=== PATIENT | male | born 1945 | race Caucasian/White ===

== ENCOUNTER 2019-06-28 11:05 | Outpatient (CLI) | payer OTHER, SELFPAY ==
--- NOTE | ~2019-06-28 | XR_ITS ---
XR chest 2V 06/28/2019 11:19 Indication: Cough, fever and leukocytosis. Procedure: 2 view chest Comparison: Comparison to multiple prior studies sequentially, with oldest reviewed study dated 09/13. Findings: Heart size normal. Left basilar airspace disease. No pleural effusion. Right lung no edema or pneumothorax. Impression: 1: Left basilar airspace disease, atelectasis versus developing pneumonia. Reviewed, dictated and finalized at location A. ACE PLATE INSPECTOR Impression: 1: Left basilar airspace disease, atelectasis versus developing pneumonia.
== END 2019-06-28 11:06 | disposition home or self-care (01) ==
LOC: CHSIMG 11:07
PROVIDERS: PCP Internal Medicine; Visit Provider Internal Medicine
DX: R05 Cough (principal); R50.9 Fever, unspecified; D72.829 Elevated white blood cell count, unspecified
CPT/HCPCS: 71046

== ENCOUNTER → 2019-07-04 14:35 | Outpatient (CLI) | payer OTHER, SELFPAY ==
--- NOTE | ~2019-07-04 | CT_ITS ---
EXAMINATION:CT chest w con DATE: 07/04/2019 15:08 INDICATION: Atypical pneumonia. Shortness of breath. TECHNIQUE: Computed tomography (CT) of the chest was performed without intravenous contrast. Automate d exposure control and iterative reconstruction technique were employed. The dose-length product (DLP ) was 322.09 mGy-cm. COMPARISON: Chest 2 views 06/28/2019, CT abdomen and pelvis 07/11/2017 FINDINGS: There is mild emphysema. There are mild patchy groundglass opacities in the upper lobes and superior segment right lower lobe. There is mild dependent atelectasis bilaterally. A calcified left lung nodule is consistent with old granulomatous disease. There are small pleural effusions. The hea rt size is normal. There are coronary artery calcifications. No pericardial effusion. The central pul monary arteries are enlarged, consistent with pulmonary arterial hypertension. There is a 1.4 cm cyst in the liver. There is mild thoracic spondylosis. IMPRESSION: 1. Mild patchy groundglass opacities in the upper lobes and superior segment right lower lobe, consis tent with pneumonia versus mild pulmonary edema. 2. Small pleural effusions. 3. Mild emphysema. Reviewed, dictated and finalized at location A. IMPRESSION: 1. Mild patchy groundglass opacities in the upper lobes and superior segment ri ght lower lobe, consistent with pneumonia versus mild pulmonary edema. 2. Small pleural effusions. 3. Mild emphysema.
[2019-07-04 14:56] LABS: Estimated Glomerular Filt Rate > 60
== END ==
PROVIDERS: PCP Internal Medicine; Visit Provider Internal Medicine
DX: J18.9 Pneumonia, unspecified organism (principal); J90 Pleural effusion, not elsewhere classified; J43.9 Emphysema, unspecified
CPT/HCPCS: 36415; 71260; Q9967

== ENCOUNTER 2019-07-05 09:06 | Outpatient (CLI) | payer OTHER, SELFPAY ==
[2019-07-05 09:29] LABS: Hematocrit 38.2 % (37.0-46.0); Hemoglobin 12.7 g/dL (12.4-15.3); Mean Corpuscular HGB Conc 33.2 g/dL (32.0-36.0); Mean Corpuscular Hemoglobin 29.1 pg (27.0-31.0); Mean Corpuscular Volume 87.6 fL (78.0-102.0); Mean Platelet Volume 8.7 fl (8.7-11.0); Platelet Count Result 387 K/mm3 (150-420); Red Blood Count 4.36 M/mm3 (4.70-6.10); Red Cell Distribution Width 13.1 % (11.6-14.4)
[2019-07-05 10:16] LABS: White Blood Count 25.2 K/mm3 (4.8-10.8)
[2019-07-05 10:17] LABS: Band Neutrophils Percent 0 % (0-6); Basophils Percent Manual 2 % (0-1); Eosinophils Absolute Manual 0.75 K/mm3 (0.02-0.5); Eosinophils Percent Manual 3 % (1-6); Lymphocytes Absolute Manual 3.02 K/mm3 (1.1-4.5); Lymphocytes Percent Manual 12 % (18-44); Metamyelocytes Percent 1 %; Monocytes Absolute Manual 1.26 K/mm3 (0.1-0.90); Monocytes Percent Manual 5 % (3-9); Neutrophils Percent Manual 77 % (46-73); Total Cells Counted 100
[2019-07-05 10:18] LABS: Platelet Estimate Adequate (Adequate)
[2019-07-05 11:00] LABS: CRP 10.9 mg/dL (0.0-0.9)
[2019-07-08 09:10] LABS: Legionella pneumophila Ag Ur Not Detected (Not Detected)
== END 2019-07-05 09:07 | disposition home or self-care (01) ==
LOC: CHSLAB 09:09
PROVIDERS: PCP Internal Medicine; Visit Provider Internal Medicine
DX: J18.9 Pneumonia, unspecified organism (principal)
CPT/HCPCS: 36415; 85025; 86140; 86606; 86612; 86628; 86635; 86698; 87449; 87486; 87581

== ENCOUNTER 2019-07-05 10:20 | Inpatient (IN) | payer MEDICARE, OTHER, SELFPAY ==
[2019-07-05] VITALS (8 sets, daily range): BP systolic 145–152; BP diastolic 79–90; PULSE 92–104; RESP 16–20; TEMP 36.2–36.8; O2SAT 91–95; BMI 25.0
--- NOTE | ~2019-07-05 | CT_ITS ---
EXAMINATION: CT chest w con DATE: 07/08/2019 14:42 INDICATION: Shortness of breath, congestion, cough TECHNIQUE: Computed tomography (CT) of the chest was performed with 100 cc Omnipaque 350 intravenous contrast. Automated exposure control and iterative reconstruction technique were employed. Exam dose: 223.12 mGy-cm total exam DLP. COMPARISON: 07/04/2019 CT chest FINDINGS: Scattered shotty mesenteric lymph nodes. No hilar or mediastinal mass lesion or lymphadenop athy. No thoracic aortic aneurysm or dissection. Normal heart size. Coronary artery calcification. No peric ardial or pleural effusion. There are scattered patchy groundglass infiltrates with overall moderate improvement since 07/04/2019, particularly in the lower lobes. Mild emphysematous changes. Approximately 1.4 x 2 cm septated right hepatic cyst. Normal morphology of the adrenal glands. Included upper abdominal structures are otherwise unremarkable. Degenerative spurring of the lower th oracic spine. No suspicious osteolytic or osteoblastic lesions. IMPRESSION: Interval improvement of patchy bilateral groundglass infiltrates and resolution of bilat eral small pleural effusions since 07/04/2019 Reviewed, dictated and finalized at Location [facility]. Reviewed, dictated and finalized at location B. IMPRESSION: Interval improvement of patchy bilateral groundglass infiltrates a nd resolution of bilateral small pleural effusions since 07/04/2019
--- NOTE | 2019-07-05 10:54 | PC.NURSE ---
Dr Farfan called insisting patient has coronavirus, per ER MD placed in negative pressure room. Patient had been sick over 2weeks
--- NOTE | 2019-07-05 11:11 | PC.NURSE ---
1035am Dr Farfan called spoke about patient to dr simental, dr simental requested meds, test & clinicals. Service Cashier called again at 1048am to dr nina office for med list, test & clinical notes, still none received
[2019-07-05] MEDS: IPRATROPIUM 0.5 MG/ALBUTEROL SULFATE 2.5 MG AMPUL.NEB 3 ML INHALATION ×2 (11:25→18:10)
--- NOTE | 2019-07-05 11:29 | ED.SOB ---
HPI - SOB/Dyspnea General Chief Complaint: Shortness of Breath/Dyspnea Stated Complaint: flu symptoms Time Seen by Provider: 07/05/19 11:00 Source: patient and family Mode of arrival: ambulatory Limitations: no limitations History of Present Illness HPI Narrative: 74-year-old man with a history of asthma comes to the ED today from a primary care doctor's clinic for increasing shortness of breath, sats of 91%, and bilateral pneumonia. He is not responding to antibiotics ( Ceftin and azithromycin) he has had the cough over week and his fever started about 1 week ago. He has had no fever for the last [address] scan yesterday showed of bilateral upper ground-glass opacities and [place] [address]. He tested negative for influenza at his doctor's office. He has had no steroids. Patient denies sick contacts and recent travel except to see a play last week in [place], [place]. MD elicited complaint: shortness of breath Pertinent past history: asthma Timing: constant and progressively worsening Severity: moderate Exacerbating factors: exertion Relieving factors: nothing Known history of: asthma Associated symptoms: fever, cough, wheezing and chest congestion Treatment prior to arrival: none Related Data Home oxygen amount: none Home Medications Medication Instructions Recorded Confirmed albuterol sulfate 2.5 mg INHALATION Q4H PRN 07/05/19 07/05/19 albuterol sulfate [ProAir HFA] 2 puff INHALATION QID PRN 07/05/19 07/05/19 aspirin 81 mg PO DAILY 07/05/19 07/05/19 azelastine 2 spray INTRANASAL BID 07/05/19 07/05/19 beclomethasone dipropionate [Qvar 2 inh INHALATION Q12H 07/05/19 07/05/19 RediHaler] celecoxib 200 mg PO DAILY 07/05/19 07/05/19 dapagliflozin [Farxiga] 5 mg PO DAILY 07/05/19 07/05/19 fluticasone furoate-vilanterol 1 inh INHALATION DAILY 07/05/19 07/05/19 [Breo Ellipta] glimepiride 2 mg PO BID 07/05/19 07/05/19 magnesium 400 mg PO DAILY 07/05/19 07/05/19 pmcybgws-sud-NO-lycopen-lutein 1 tablet PO DAILY 07/05/19 07/05/19 [Centrum Silver Men] cqvwh-7-vgp-qpj-rkg-abxx oil 1 cap PO DAILY 07/05/19 07/05/19 [[place]-3 (with dpa)] simvastatin 10 mg PO HS 07/05/19 07/05/19 terazosin 10 mg PO HS 07/05/19 07/05/19 verapamil 180 mg PO HS 07/05/19 07/05/19 zafirlukast 20 mg PO Q12H 07/05/19 07/05/19 Allergies Allergy/AdvReac Type Severity Reaction Status Date / Time losartan AdvReac Dizziness Verified 07/05/19 12:57 metformin [From ] AdvReac Abdominal Verified 07/05/19 12:57 Pain sitagliptin [From ] AdvReac Abdominal Verified 07/05/19 12:57 Pain theophylline AdvReac Abdominal Verified 07/05/19 12:57 Pain Review of Systems Constitutional: Constitutional: Reports as per HPI, Denies chills, Reports fatigue, Reports fever(s) and Denies weakness Eyes: Eyes: Denies change in vision and Denies photophobia ENT: Denies dysphagia, Reports nasal congestion and Denies sore throat Cardiovascular: Cardiovascular: Reports chest pain and Reports radiating jaw, neck or arm pain Respiratory: Respiratory: Reports as per HPI, Reports chest congestion, Reports cough, Reports dyspnea and Reports wheezing Gastrointestinal: Gastrointestinal: Denies abdominal pain, Denies diarrhea, Denies nausea and Denies vomiting Genitourinary: Genitourinary: Denies hematuria, Denies dysuria and Denies urinary frequency Musculoskeletal: Musculoskeletal: Denies arthralgias, Denies joint swelling and Denies muscle cramps Integumentary/Breasts: Skin/Breast: Denies pruritus, Denies erythema and Denies rash Neurologic: Denies vertigo, Denies dizziness, Denies syncope, Denies headache(s) and Denies focal weakness Psychiatric: Psychiatric: Denies anxiety and Denies depression Endocrine: Endocrine: Denies polydipsia and Denies polyuria Hematologic/Lymphatic: Hematologic/Lymphatic: Denies easy bleeding and Denies easy bruising Allergic/Immunologic: Allergic/Immunologic: Denies
--- NOTE | 2019-07-05 11:38 | ECG_ITS ---
Measurements Intervals [place] Rate: 100 P: 64 AK: 122 QRS: 97 QRSD: 101 T: 5 QT: 370 QTc: 477 Interpretive Statements SINUS TACHYCARDIA RIGHT AXIS DEVIATION DELAYED PRECORDIAL R/S TRANSITION BORDERLINE ST-T WAVE ABNORMALITY- INFERIOR LEADS BORDERLINE ECG Electronically Signed On 07-05-2019 13:30:30 CDT by Benji Leal D.O.
--- NOTE | 2019-07-05 12:00 | PC.NURSE ---
Pt spo2 88% on room air. edp aware, spoke with pt. pt spo2 back up to 92%.
[2019-07-05 12:07] LABS: Anion Gap 18.8 mmol/L (7-16); Blood Urea Nitrogen 23 mg/dL (7-18); Calcium 8.4 mg/dL (8.5-10.1); Carbon Dioxide 22 mmol/L (21-32); Chloride 103 mmol/L (98-108); Estimated CRCL calculation 50 ml/min; Estimated Glomerular Filt Rate > 60; Glucose 297 mg/dL (70-99); Osmolality Calculated 304 mOsm/kg (285-295); Potassium 3.8 mmol/L (3.5-5.1); Sodium 140 mmol/L (136-145)
[2019-07-05 12:18] LABS: Troponin I < 0.02 ng/mL (0.00-0.056)
[2019-07-05 12:50] LABS: Lactic Acid 1.1 mmol/L (0.4-2.0)
[2019-07-05 12:51] LABS: Influenza Control Valid (Valid)
--- NOTE | 2019-07-05 14:43 | PC.NURSE ---
Dr. Perkins [facility].
--- NOTE | 2019-07-05 15:01 | PM.IMHP ---
H&P: HPI History of Present Illness Chief complaint: flu symptoms Narrative: Binh Herrera is a 74 year old male that presented to the ED today with complaints of shortness of breath dyspnea and elevated wbc's. Patient has a past medical history of asthma, rheumatoid arthritis, type 2 diabetes, hypertension and HLD . According to patient weeks ago he was with fever 101-102, a nonproductive cough, shortness of breath, occasional lightheadedness and diaphoretic. He does have a history of asthma, according to patient he usually uses his nebulizer once a week. For the past weeks he has had to uses nebulizer twice a day. he has not had any recent fevers He did have an appointment with his primary care physician today who referred him to the ED. his PCP referred him to the ED because his white count has increased with antibiotic treatment. He did test negative for influenza and has not had any steroids to justify the elevated white blood cell count. his doctor was concerned with the COVID-19 virus and he was tested for it in the ED. While in the ED patient did have a CT of the chest completed which indicated Mild patchy groundglass opacities in the upper lobes and superior segment right lower lobe, consistent with pneumonia versus mild pulmonary edema. he also completed chest x-ray on 06/28/2019 which indicated Left basilar airspace disease, atelectasis versus developing pneumonia. at that time he was treated with antibiotics. while in the ER a blood culture was collected EKG indicated sinus tach with a heart rate of 100 lactic acid was within normal limits antibiotics given azithromycin vancomycin and ceftarolin, breathing treatments was also ordered for patient. vitals were 152/90, 20, 91, 91% on room air. Patient will be admitted to this unit and placed on droplet isolation until COVID-19 virus results are returned patient's is in the room with him and educated on the spread of the virus. patient does continue to have shortness of breath. Patient denies CP, palpitation, extremity numbness, lightheadness, dizziness, constipation, diarrhea, or chills or fever. patient did complain of dysuria that started 1 week ago will collect a UA to rule out UTI Review of Systems Constitutional: Constitutional: Reports no additional constitutional complaints, Denies chills, Denies fatigue and Denies fever(s) Cardiovascular: Cardiovascular: Denies chest pain at rest, Denies chest pain with activity, Denies diaphoresis, Denies syncope, Denies leg edema, Reports dyspnea, Reports dyspnea on exertion and Reports orthopnea Respiratory: Respiratory: Reports cough ( nonproductive), Denies excessive phlegm production, Denies pain with cough and Reports dyspnea on exertion Gastrointestinal: Gastrointestinal: Denies constipation, Denies dyspepsia, Denies heartburn, Denies diarrhea and Denies nausea Genitourinary: Genitourinary: Denies hematuria, Reports dysuria and Denies flank pain Musculoskeletal: Musculoskeletal: Reports no additional musculoskeletal complaints Integumentary/Breasts: Skin/Breast: Reports system reviewed and no additional complaints, except as docu Neurologic: Reports system reviewed and no additional complaints, except as documented, Denies vertigo, Denies dizziness, Denies focal weakness, Denies loss of vision and Denies tingling PMFSH Past Medical History Medical History (Updated 07/05/19 @ 15:34 by KIKI Caceres-C) Asthma HLD (hyperlipidemia) HTN (hypertension) Rheumatoid arthritis Type 2 diabetes mellitus Social History Social History (Updated 07/05/19 @ 11:37 by Francois Perkins MD) Smoking status: Never smoker Alcohol intake: unknown Substance use: never Living arrangements: with family Gender identity (if verbalized by the patient): Male Meds Home Medications and Allergies Home Medications Medication Instructions Recorded Confirmed Type albuterol sulfate 2.5 mg INHALATION Q4H PRN 07/05/19 0
[2019-07-05] MEDS: BENZONATATE 100 MG CAPSULE 200 MG PO (16:32)
[2019-07-05] MEDS: GLIMEPIRIDE 2 MG TABLET PO (16:32)
--- NOTE | 2019-07-05 16:43 | PC.NURSE ---
[facility] called to approve idph testing for [place] virus. pui completed and faxed.
[2019-07-05 16:47] LABS: Glucose Point of Care 190 (65-105)
--- NOTE | 2019-07-05 17:08 | ADMGEN ---
This patient, Binh Herrera, was admitted to 2nd Floor Room 212-1. Patient/family oriented to hospital policies and general routines including ID bracelet, bed and alarms, visiting hours, pain management, procedures, bathroom and other care routines, personal items, smoking policy, room service/diet, and visiting hours. Valuables list has been completed. Information on how to activate the Rapid Response Team has been discussed. Patient/Family are encouraged to report perceived risks to care and to ask questions if they do not understand what they are told or what they should do.
[2019-07-05] MEDS: TERAZOSIN HCL 5 MG CAPSULE 10 MG PO (20:13)
[2019-07-05] MEDS: VERAPAMIL HCL 180 MG TABLET ER PO (20:13)
[2019-07-05] MEDS: SIMVASTATIN 10 MG TABLET PO (20:13)
[2019-07-05 20:39] LABS: Glucose Point of Care 113 (65-105)
--- NOTE | 2019-07-05 20:45 | PC.NURSE ---
pt sitting up in chair talking to , no evidence of respiratory distress noted, denies any complaints
[2019-07-05 20:50] LABS: Appearance Urine Clear (Clear); Bilirubin Urine Negative (Negative); Color Urine Yellow (Yellow); Glucose Urine UA 3+ (Negative); Ketones Urine Negative (Negative); Leukocyte Esterase Ur Negative LEU/UL (Negative); Nitrate Urine Negative (Negative); Protein Urine Negative (Negative); Specific Grav Ur <= 1.005 (1.010-1.020); Urobilinogen Urine 0.2 mg/dL (0.2-1.0); pH Urine 5.5 (5.0-8.0)
[2019-07-05 20:55] LABS: Add Urine Microscopic? YES; Bacteria Urine None seen /hpf; Blood Urine Trace-Lysed (Negative); RBC Urine None seen /hpf (0-2); Squamous Epithelial Cell Urine Rare /hpf (Few); WBC Urine None seen /hpf (0-3)
--- NOTE | 2019-07-05 22:00 | PC.NURSE ---
Pt sleeping, no evidence of distress noted, respirations even and regular, call light and belongings within reach
--- NOTE | 2019-07-05 23:15 | PC.NURSE ---
pt sleeping, respirations even and regular, no evidence of respiratory distress noted at this time
[2019-07-06] VITALS (11 sets, daily range): BP systolic 146–152; BP diastolic 76–80; PULSE 88–104; RESP 16–20; TEMP 36.2; O2SAT 93–96
--- NOTE | 2019-07-06 00:10 | PC.NURSE ---
pt easily aroused for breathing tx, denies any sob or pain at this time
[2019-07-06] MEDS: IPRATROPIUM 0.5 MG/ALBUTEROL SULFATE 2.5 MG AMPUL.NEB 3 ML INHALATION ×4 (00:12→18:30)
[2019-07-06] MEDS: ZAFIRLUKAST 20 MG TABLET PO ×2 (00:12→13:30)
--- NOTE | 2019-07-06 02:45 | PC.NURSE ---
pt sleeping, respirations even and regular, no evidence of respiratory distress noted at this time
--- NOTE | 2019-07-06 04:02 | PC.NURSE ---
pt sleeping, respirations even and regular, no evidence of respiratory distress
--- NOTE | 2019-07-06 05:40 | PC.NURSE ---
respiratory in room, pt denies any sob, reports feels better today
[2019-07-06 06:15] LABS: Hematocrit 37.2 % (37.0-46.0); Hemoglobin 12.5 g/dL (12.4-15.3); Mean Corpuscular HGB Conc 33.6 g/dL (32.0-36.0); Mean Corpuscular Hemoglobin 29.6 pg (27.0-31.0); Mean Corpuscular Volume 88.2 fL (78.0-102.0); Mean Platelet Volume 8.9 fl (8.7-11.0); Platelet Count Result 389 K/mm3 (150-420); Red Blood Count 4.22 M/mm3 (4.70-6.10); Red Cell Distribution Width 12.9 % (11.6-14.4); White Blood Count 16.7 K/mm3 (4.8-10.8)
[2019-07-06 06:33] LABS: Band Neutrophils Percent 1 % (0-6); Basophils Absolute Manual 0.33 K/mm3 (0-0.1); Basophils Percent Manual 2 % (0-1); Eosinophils Absolute Manual 0.33 K/mm3 (0.02-0.5); Eosinophils Percent Manual 2 % (1-6); Lymphocytes Absolute Manual 1.67 K/mm3 (1.1-4.5); Lymphocytes Percent Manual 10 % (18-44); Metamyelocytes Percent 2 %; Monocytes Absolute Manual 0.33 K/mm3 (0.1-0.90); Monocytes Percent Manual 2 % (3-9); Neutrophils Absolute Manual 13.69 K/mm3 (1.3-6.7); Neutrophils Percent Manual 81 % (46-73); Platelet Estimate Adequate (Adequate); Total Cells Counted 100
[2019-07-06 06:45] LABS: Alanine Aminotransferase 52 U/L (16-63); Albumin Level 2.6 g/dL (3.4-5.0); Alkaline Phosphatase 67 U/L (46-116); Anion Gap 15.4 mmol/L (7-16); Aspartate Amino Transferase 22 U/L (15-37); Bilirubin,Total 0.4 mg/dL (0.00-1.00); Blood Urea Nitrogen 16 mg/dL (7-18); Calcium 8.1 mg/dL (8.5-10.1); Carbon Dioxide 25 mmol/L (21-32); Chloride 105 mmol/L (98-108); Estimated CRCL calculation 57 ml/min; Estimated Glomerular Filt Rate > 60; Glucose 110 mg/dL (70-99); Osmolality Calculated 296 mOsm/kg (285-295); Potassium 3.4 mmol/L (3.5-5.1); Sodium 142 mmol/L (136-145); Total Protein 6.4 g/dL (6.4-8.2)
[2019-07-06] MEDS: BENZONATATE 100 MG CAPSULE 200 MG PO ×3 (09:47→16:28)
[2019-07-06] MEDS: OPTI-GEN TAB 1 TABLET PO (09:48)
[2019-07-06] MEDS: GLIMEPIRIDE 2 MG TABLET PO ×2 (09:48→16:28)
[2019-07-06] MEDS: MAGNESIUM OXIDE 400 MG TABLET PO (09:48)
[2019-07-06] MEDS: OMEGA 3 POLYUNSAT FATTY ACIDS 1 GM CAP PO (09:48)
[2019-07-06] MEDS: CELECOXIB 100 MG CAPSULE 200 MG PO (09:48)
[2019-07-06] MEDS: ASPIRIN 81 MG CHEWABLE TABLET PO (09:48)
[2019-07-06] MEDS: AZELASTINE HCL NASAL 0.1% 137 MCG/SPR 30 ML BTL 2 SPRAY NASAL ×2 (10:00→16:44)
[2019-07-06] MEDS: ACETAMINOPHEN 500 MG TABLET 1000 MG PO (10:03)
--- NOTE | 2019-07-06 11:06 | P.PNIM_ITS ---
Progress Note: A&P Assessment and Plan (1) Pneumonia: Qualifiers: Laterality: bilateral Lung location: unspecified part of lung Pneumonia type: due to unspecified organism Qualified Code(s): J18.9 - Pneumonia, unspecified organism <Eloise Quintero KIKI-C - Last Filed: 07/06/19 11:12> Code(s): J18.9 - Pneumonia, unspecified organism <Eloise Quintero KIKI-C - Last Filed: 07/06/19 11:12> Status: Acute <Eloise Quintero SPA THERAPIST-C - Last Filed: 07/06/19 11:12> Assessment and Plan: * chest x-ray on 07/08/2019 indicates Left basilar airspace disease, atelectasis versus developing pneumonia. * CT of the chest indicates Mild patchy groundglass opacities in the upper lobes and superior segment right lower lobe, consistent with pneumonia versus mild pulmonary edema. * continue azithromycin vancomycin and Rocephin * wbc's 25,000 on admission now 16.7 * will repeat CBC in the a.m. * Tylenol added for fever * patient currently afebrile * blood culture pending * continue Tessalon Perles and guaifenesin. <Eloise Quintero SPA THERAPIST-C - Last Filed: 07/06/19 11:12> (2) Hypoxia: Code(s): R09.02 - Hypoxemia <Eloise Quintero KIKI-C - Last Filed: 07/06/19 11:12> Status: Acute <Eloise Quintero KIKI-C - Last Filed: 07/06/19 11:12> Assessment and Plan: * possibly secondary to pneumonia versus viral infection versus worsening asthma * sats 96% on room air, no obvious distress noted * refer to pneumonia and asthma <Eloise Quintero SPA THERAPIST-C - Last Filed: 07/06/19 11:12> (3) Asthma: Code(s): J45.909 - Unspecified asthma, uncomplicated <Eloise Quintero SPA THERAPIST-C - Last Filed: 07/06/19 11:12> Status: Acute <Eloise Quintero SPA THERAPIST-C - Last Filed: 07/06/19 11:12> Assessment and Plan: * worsened due to pneumonia * CT of the chest indicates mild emphysema * continue duo nebulizers * continue to monitor oxygen level * give supplementary oxygen needed * sats 96% on room air * patient did not appear to be in any distress <AYAN CaceresC - Last Filed: 07/06/19 11:12> (4) Type 2 diabetes mellitus: Code(s): E11.9 - Type 2 diabetes mellitus without complications <Eloise Quintero KIKI-C - Last Filed: 07/06/19 11:12> Status: Acute <Eloise Quintero KIKI-C - Last Filed: 07/06/19 11:12> Assessment and Plan: * blood sugar 113 * continue home medication * sliding scale added low-dose * will adjust as needed * Accu-Cheks as ordered * continue diabetic diet <Eloise Quintero KIKI-C - Last Filed: 07/06/19 11:12> (5) Rheumatoid arthritis: Code(s): M06.9 - Rheumatoid arthritis, unspecified <Eloise Quintero KIKI-C - Last Filed: 07/06/19 11:12> Status: Acute <Eloise Quintero KIKI-C - Last Filed: 07/06/19 11:12> Assessment and Plan: * stable <Eloise Quintero KIKI-C - Last Filed: 07/06/19 11:12> (6) HLD (hyperlipidemia): Code(s): E78.5 - Hyperlipidemia, unspecified <Eloise Quintero KIKI-C - Last Filed: 07/06/19 11:12> Status: Acute <Eloise Quintero KIKI-C - Last Filed: 07/06/19 11:12> Assessment and Plan: continue statins <Eloise Quintero KIKI-C - Last Filed: 07/06/19 11:12> (7) HTN (hypertension): Code(s): I10 - Essential (primary) hypertension <Eloise Quintero KIKI-C - Last Filed: 07/06/19 11:12> Status: Acute <Eloise Quintero KIKI-C - Last Filed: 07/06/19 11:12> Assessment and Plan: * blood pres
--- NOTE | 2019-07-06 11:06 | PM.IMPN ---
Progress Note: A&P Assessment and Plan (1) Pneumonia: Qualifiers: Laterality: bilateral Lung location: unspecified part of lung Pneumonia type: due to unspecified organism Qualified Code(s): J18.9 - Pneumonia, unspecified organism <KIKI Caceres-C - Last Filed: 07/06/19 11:12> Code(s): J18.9 - Pneumonia, unspecified organism <Eloise Quintero KIKI-C - Last Filed: 07/06/19 11:12> Status: Acute <KIKI Caceres-C - Last Filed: 07/06/19 11:12> Assessment and Plan: chest x-ray on 07/08/2019 indicates Left basilar airspace disease, atelectasis versus developing pneumonia. CT of the chest indicates Mild patchy groundglass opacities in the upper lobes and superior segment right lower lobe, consistent with pneumonia versus mild pulmonary edema. continue azithromycin vancomycin and Rocephin wbc's 25,000 on admission now 16.7 will repeat CBC in the a.m. Tylenol added for fever patient currently afebrile blood culture pending continue Tessalon Perles and guaifenesin. <Eloise Quintero KIKI-C - Last Filed: 07/06/19 11:12> (2) Hypoxia: Code(s): R09.02 - Hypoxemia <Eloise Quintero KIKI-C - Last Filed: 07/06/19 11:12> Status: Acute <Eloise Quintero KIKI-C - Last Filed: 07/06/19 11:12> Assessment and Plan: possibly secondary to pneumonia versus viral infection versus worsening asthma sats 96% on room air, no obvious distress noted refer to pneumonia and asthma <Eloise Quintero CUSTOMER QUALITY SPECIALIST-C - Last Filed: 07/06/19 11:12> (3) Asthma: Code(s): J45.909 - Unspecified asthma, uncomplicated <Eloise Quintero KIKI-C - Last Filed: 07/06/19 11:12> Status: Acute <Eloise Quintero CUSTOMER QUALITY SPECIALIST-C - Last Filed: 07/06/19 11:12> Assessment and Plan: worsened due to pneumonia CT of the chest indicates mild emphysema continue duo nebulizers continue to monitor oxygen level give supplementary oxygen needed sats 96% on room air patient did not appear to be in any distress <Eloise Quintero CUSTOMER QUALITY SPECIALISTAyushC - Last Filed: 07/06/19 11:12> (4) Type 2 diabetes mellitus: Code(s): E11.9 - Type 2 diabetes mellitus without complications <Eloise Quintero CUSTOMER QUALITY SPECIALISTAyushC - Last Filed: 07/06/19 11:12> Status: Acute <Eloise Quintero AYANC - Last Filed: 07/06/19 11:12> Assessment and Plan: blood sugar 113 continue home medication sliding scale added low-dose will adjust as needed Accu-Cheks as ordered continue diabetic diet <Eloise QuinteroKIKIAyushC - Last Filed: 07/06/19 11:12> (5) Rheumatoid arthritis: Code(s): M06.9 - Rheumatoid arthritis, unspecified <Eloise Quintero CUSTOMER QUALITY SPECIALISTAyushC - Last Filed: 07/06/19 11:12> Status: Acute <Eloise Quintero AYANC - Last Filed: 07/06/19 11:12> Assessment and Plan: stable <Eloise Quintero CUSTOMER QUALITY SPECIALIST-C - Last Filed: 07/06/19 11:12> (6) HLD (hyperlipidemia): Code(s): E78.5 - Hyperlipidemia, unspecified <Eloise Quintero AYANC - Last Filed: 07/06/19 11:12> Status: Acute <Eloise Quintero AYANOnur - Last Filed: 07/06/19 11:12> Assessment and Plan: continue statins <Eloise Quintero CUSTOMER QUALITY SPECIALIST-C - Last Filed: 07/06/19 11:12> (7) HTN (hypertension): Code(s): I10 - Essential (primary) hypertension <Eloise Yanez Leon CUSTOMER QUALITY SPECIALIST-C - Last Filed: 07/06/19 11:12> Status: Acute <Eloise Quintero CUSTOMER QUALITY SPECIALIST-C - Last Filed: 07/06/19 11:12> Assessment and Plan: blood pressure 152/80 continue verapamil and hytrin will adjust medication as needed vital signs is ordered <Eloise LockettKIKI Serna-C - Last Filed: 07/06/19 11:12> (8) Elevated WBCs: Code(s): D72.829 - Elevated white blood cell count, unspecified <KAN Caceres - Last Filed: 07/06/19 11:12> Status: Acute <KAN Caceres - Last Filed: 06/21
[2019-07-06 12:24] LABS: Glucose Point of Care 139 (65-105)
[2019-07-06] MEDS: POTASSIUM CHLORIDE 20 MEQ PACKET (FOR LIQUID) 40 MEQ PO (13:35)
[2019-07-06 16:45] LABS: Glucose Point of Care 217 (65-105)
--- NOTE | 2019-07-06 19:55 | PC.NURSE ---
pt sitting up in bed talking to , no sob noted, pt reports feeling better except for the cough.
[2019-07-06] MEDS: TERAZOSIN HCL 5 MG CAPSULE 10 MG PO (20:00)
[2019-07-06] MEDS: SIMVASTATIN 10 MG TABLET PO (20:00)
[2019-07-06] MEDS: VERAPAMIL HCL 180 MG TABLET ER PO (20:01)
--- NOTE | 2019-07-06 21:20 | PC.NURSE ---
pt sitting up in bed watching tv, denies any complaints, respirations even and regular, no evidence of sob
[2019-07-06 21:32] LABS: Glucose Point of Care 183 (65-105)
--- NOTE | 2019-07-06 23:19 | PC.NURSE ---
pt sleeping, respirations even and regular, no evidence of respiratory distress noted
[2019-07-07] VITALS (11 sets, daily range): BP systolic 136–144; BP diastolic 76–82; PULSE 88–109; RESP 16–22; TEMP 35.9–36.2; O2SAT 94
[2019-07-07] MEDS: ZAFIRLUKAST 20 MG TABLET PO ×2 (00:10→12:47)
[2019-07-07] MEDS: IPRATROPIUM 0.5 MG/ALBUTEROL SULFATE 2.5 MG AMPUL.NEB 3 ML INHALATION ×4 (00:10→17:43)
--- NOTE | 2019-07-07 01:25 | PC.NURSE ---
pt sleeping, respirations even and regular, no evidence of respiratory distress noted
--- NOTE | 2019-07-07 03:20 | PC.NURSE ---
pt sleeping, respirations even and regular, no evidence of respiratory distress noted
--- NOTE | 2019-07-07 05:41 | PCDIET ---
pt resting in bed, denies any sob, RT at bedside
[2019-07-07 05:59] LABS: Hematocrit 38.3 % (37.0-46.0); Hemoglobin 12.5 g/dL (12.4-15.3); Mean Corpuscular HGB Conc 32.6 g/dL (32.0-36.0); Mean Corpuscular Hemoglobin 29.1 pg (27.0-31.0); Mean Corpuscular Volume 89.1 fL (78.0-102.0); Platelet Count Result 408 K/mm3 (150-420); Red Cell Distribution Width 13.1 % (11.6-14.4)
[2019-07-07 06:14] LABS: Alanine Aminotransferase 59 U/L (16-63); Albumin Level 2.7 g/dL (3.4-5.0); Alkaline Phosphatase 71 U/L (46-116); Anion Gap 12.6 mmol/L (7-16); Aspartate Amino Transferase 20 U/L (15-37); Bilirubin,Total 0.3 mg/dL (0.00-1.00); Blood Urea Nitrogen 13 mg/dL (7-18); Calcium 8.3 mg/dL (8.5-10.1); Carbon Dioxide 27 mmol/L (21-32); Chloride 105 mmol/L (98-108); Estimated CRCL calculation 60 ml/min; Estimated Glomerular Filt Rate > 60; Glucose 118 mg/dL (70-99); Osmolality Calculated 293 mOsm/kg (285-295); Potassium 3.6 mmol/L (3.5-5.1); Sodium 141 mmol/L (136-145); Total Protein 6.5 g/dL (6.4-8.2)
--- NOTE | 2019-07-07 07:08 | P.PNCROSS_ITS ---
Event Note Event Note Event Note: Late entry. Pt. seen and evaluated 07/06/19 For this patient encounter, I reviewed the P[employer] BENCH MECHANIC documentation, treatment plan, and medical decision making; and I had [id number] time with this patient. Pt states he's feeling much better since being admitted with less cough and less chest congestion. Decreased breath sounds, scattered wheezes fine rales in bases on PE. Continue 3 antibiotics for today. Await Surs-Covid test result.
[2019-07-07] MEDS: ASPIRIN 81 MG CHEWABLE TABLET PO (09:20)
[2019-07-07] MEDS: OPTI-GEN TAB 1 TABLET PO (09:20)
[2019-07-07] MEDS: BENZONATATE 100 MG CAPSULE 200 MG PO ×3 (09:20→16:59)
[2019-07-07] MEDS: ENOXAPARIN 40 MG/0.4 ML SYRINGE SUB-Q (09:20)
[2019-07-07] MEDS: CELECOXIB 100 MG CAPSULE 200 MG PO (09:21)
[2019-07-07] MEDS: MAGNESIUM OXIDE 400 MG TABLET PO (09:21)
[2019-07-07] MEDS: OMEGA 3 POLYUNSAT FATTY ACIDS 1 GM CAP PO (09:21)
[2019-07-07] MEDS: GLIMEPIRIDE 2 MG TABLET PO ×2 (09:21→16:59)
[2019-07-07] MEDS: AZELASTINE HCL NASAL 0.1% 137 MCG/SPR 30 ML BTL 2 SPRAY NASAL ×2 (09:22→16:59)
[2019-07-07 12:10] LABS: Glucose Point of Care 148 (65-105)
[2019-07-07 14:19] LABS: Vancomycin Trough 2.5 ug/mL (10.0-15.0)
--- NOTE | 2019-07-07 15:01 | P.PNIM_ITS ---
Progress Note: A&P Assessment and Plan (1) Pneumonia: Qualifiers: Laterality: bilateral Lung location: unspecified part of lung Pneumonia type: due to unspecified organism Qualified Code(s): J18.9 - Pneumonia, unspecified organism <Eloise QuinteroKIKI-C - Last Filed: 07/07/19 15:17> Code(s): J18.9 - Pneumonia, unspecified organism <Eloise QuinteroKIKI-C - Last Filed: 07/07/19 15:17> Status: Acute <Eloise QuinteroKIKI-C - Last Filed: 07/07/19 15:17> Assessment and Plan: * chest x-ray on 07/08/2019 indicates Left basilar airspace disease, atelectasis versus developing pneumonia. * CT of the chest indicates Mild patchy groundglass opacities in the upper lobes and superior segment right lower lobe, consistent with pneumonia versus mild pulmonary edema. * continue vancomycin discontinue the azithromycin and Rocephin and started Zosyn instead her roller mechanic recommendations * wbc's 25,000 on admission now 17. did go up 1.6 yesterday * will repeat CBC in the a.m. * Tylenol added for fever * patient currently afebrile * blood culture pending * continue Tessalon Perles and guaifenesin. * CT of the chest pending * * Influenza, RSV PE, pneumococcus and Legionella are a image in UA pending and sputum culture. <Eloise LockettKIKI Serna-C - Last Filed: 07/07/19 15:17> (2) Hypoxia: Code(s): R09.02 - Hypoxemia <Eloise QuinteroKIKI-C - Last Filed: 07/07/19 15:17> Status: Acute <Eloise QuinteroKIKI-C - Last Filed: 07/07/19 15:17> Assessment and Plan: * possibly secondary to pneumonia versus viral infection versus worsening asthma * refer to pneumonia and asthma <Alanyamilet LevyAbran LeonKIKI-C - Last Filed: 07/07/19 15:17> (3) Asthma: Code(s): J45.909 - Unspecified asthma, uncomplicated <Alanyamilet LevyKIKI Serna-C - Last Filed: 07/07/19 15:17> Status: Acute <DOMINIK CaceresP-C - Last Filed: 07/07/19 15:17> Assessment and Plan: * worsened due to pneumonia * CT of the chest indicates mild emphysema * continue duo nebulizers * continue to monitor oxygen level * give supplementary oxygen needed * patient did not appear to be in any distress <KIKI Caceres-C - Last Filed: 07/07/19 15:17> (4) Type 2 diabetes mellitus: Code(s): E11.9 - Type 2 diabetes mellitus without complications <Eloise Quintero GRADE FOREMAN-C - Last Filed: 07/07/19 15:17> Status: Acute <Eloise Quintero KIKI-C - Last Filed: 07/07/19 15:17> Assessment and Plan: * blood sugar 148 * continue home medication * sliding scale added low-dose * will adjust as needed * Accu-Cheks as ordered * continue diabetic diet <Eloise Quintero KIKI-C - Last Filed: 07/07/19 15:17> (5) Rheumatoid arthritis: Code(s): M06.9 - Rheumatoid arthritis, unspecified <Eloise Quintero GRADE FOREMAN-C - Last Filed: 07/07/19 15:17> Status: Acute <Eloise Quintero KIKI-C - Last Filed: 07/07/19 15:17> Assessment and Plan: * stable <Eloise Quintero KIKI-C - Last Filed: 07/07/19 15:17> (6) HLD (hyperlipidemia): Code(s): E78.5 - Hyperlipidemia, unspecified <Eloise Quintero GRADE FOREMAN-C - Last Filed: 07/07/19 15:17> Status: Acute <Eloise Quintero GRADE FOREMAN-C - Last Filed: 07/07/19 15:17> Assessment and Plan: continue statins <Eloise Quintero GRADE FOREMAN-C - Last Filed: 07/07/19 15:17> (7) HTN (hypertension): Code(s): I10 - Essential (primary) hypertension <Eloise Quintero GRADE FOREMAN-C - Last Filed:
--- NOTE | 2019-07-07 15:01 | PM.IMPN ---
Progress Note: A&P Assessment and Plan (1) Pneumonia: Qualifiers: Laterality: bilateral Lung location: unspecified part of lung Pneumonia type: due to unspecified organism Qualified Code(s): J18.9 - Pneumonia, unspecified organism <Eloise QuinteroKIKI-C - Last Filed: 07/07/19 15:17> Code(s): J18.9 - Pneumonia, unspecified organism <Eloise Yanez KIKI Quintero-C - Last Filed: 07/07/19 15:17> Status: Acute <Eloise QuinteroKIKI-C - Last Filed: 07/07/19 15:17> Assessment and Plan: chest x-ray on 07/08/2019 indicates Left basilar airspace disease, atelectasis versus developing pneumonia. CT of the chest indicates Mild patchy groundglass opacities in the upper lobes and superior segment right lower lobe, consistent with pneumonia versus mild pulmonary edema. continue vancomycin discontinue the azithromycin and Rocephin and started Zosyn instead her nuclear technician recommendations wbc's 25,000 on admission now 17. did go up 1.6 yesterday will repeat CBC in the a.m. Tylenol added for fever patient currently afebrile blood culture pending continue Tessalon Perles and guaifenesin. CT of the chest pending Influenza, RSV PE, pneumococcus and Legionella are a image in UA pending and sputum culture. <Alanyamilet LevyKIKI Serna-C - Last Filed: 07/07/19 15:17> (2) Hypoxia: Code(s): R09.02 - Hypoxemia <Eloise LockettKIKI Serna-C - Last Filed: 07/07/19 15:17> Status: Acute <Eloise LockettKIKI Serna-C - Last Filed: 07/07/19 15:17> Assessment and Plan: possibly secondary to pneumonia versus viral infection versus worsening asthma refer to pneumonia and asthma <KIKI Caceres-C - Last Filed: 07/07/19 15:17> (3) Asthma: Code(s): J45.909 - Unspecified asthma, uncomplicated <Eloise LevyKIKI Serna-C - Last Filed: 07/07/19 15:17> Status: Acute <Eloise RKIKI Serna-C - Last Filed: 07/07/19 15:17> Assessment and Plan: worsened due to pneumonia CT of the chest indicates mild emphysema continue duo nebulizers continue to monitor oxygen level give supplementary oxygen needed patient did not appear to be in any distress <Eloise Quintero KIKI-C - Last Filed: 07/07/19 15:17> (4) Type 2 diabetes mellitus: Code(s): E11.9 - Type 2 diabetes mellitus without complications <Eloise Quintero FEEDER ASSOCIATE-C - Last Filed: 07/07/19 15:17> Status: Acute <Eloise Quintero FEEDER ASSOCIATE-C - Last Filed: 07/07/19 15:17> Assessment and Plan: blood sugar 148 continue home medication sliding scale added low-dose will adjust as needed Accu-Cheks as ordered continue diabetic diet <Eloise Quintero FEEDER ASSOCIATE-C - Last Filed: 07/07/19 15:17> (5) Rheumatoid arthritis: Code(s): M06.9 - Rheumatoid arthritis, unspecified <Eloise Quintero FEEDER ASSOCIATE-C - Last Filed: 07/07/19 15:17> Status: Acute <Eloise Quintero FEEDER ASSOCIATE-C - Last Filed: 07/07/19 15:17> Assessment and Plan: stable <Eloise Quintero FEEDER ASSOCIATE-C - Last Filed: 07/07/19 15:17> (6) HLD (hyperlipidemia): Code(s): E78.5 - Hyperlipidemia, unspecified <Eloise Quintero FEEDER ASSOCIATE-C - Last Filed: 07/07/19 15:17> Status: Acute <Eloise Quintero FEEDER ASSOCIATE-C - Last Filed: 07/07/19 15:17> Assessment and Plan: continue statins <Eloise Quintero FEEDER ASSOCIATE-C - Last Filed: 07/07/19 15:17> (7) HTN (hypertension): Code(s): I10 - Essential (primary) hypertension <Eloise Quintero FEEDER ASSOCIATE-C - Last Filed: 07/07/19 15:17> Status: Acute <Eloise LockettAbran Quintero FEEDER ASSOCIATE-C - Last Filed: 07/07/19 15:17> Assessment and Plan: blood pressure 141/76 continue verapamil and hytrin will adjust medication as needed vital signs is ordered <KIKI Caceres-C - Last Filed: 07/07/19 15:17> (8) Elevated WBCs: Code(s): D72.829 - Elevated white blood
[2019-07-07 17:14] LABS: Glucose Point of Care 131 (65-105)
[2019-07-07] MEDS: VERAPAMIL HCL 180 MG TABLET ER PO (21:23)
[2019-07-07] MEDS: SIMVASTATIN 10 MG TABLET PO (21:24)
[2019-07-07] MEDS: TERAZOSIN HCL 5 MG CAPSULE 10 MG PO (21:24)
[2019-07-07 21:52] LABS: Glucose Point of Care 112 (65-105)
[2019-07-08] VITALS (8 sets, daily range): BP systolic 135–148; BP diastolic 77; PULSE 96–106; RESP 16–20; TEMP 35.9–36.6; O2SAT 94–97
[2019-07-08] MEDS: IPRATROPIUM 0.5 MG/ALBUTEROL SULFATE 2.5 MG AMPUL.NEB 3 ML INHALATION ×4 (01:30→18:04)
[2019-07-08] MEDS: ZAFIRLUKAST 20 MG TABLET PO ×2 (01:30→14:02)
[2019-07-08 05:33] LABS: Basophils Absolute Auto 0.09 K/mm3 (0.00-0.10); Basophils Percent Auto 0.5 % (0.0-1.0); Eosinophils Absolute Auto 0.55 K/mm3 (0.02-0.50); Eosinophils Percent Auto 3.3 % (1.0-6.0); Hematocrit 39.3 % (37.0-46.0); Immature Granulocyte Absolute 0.36 K/mm3 (0.00-0.00); Immature Granulocyte Percent A 2.2 % (0.0-0.0); Lymphocytes Absolute Auto 1.66 K/mm3 (1.10-4.50); Lymphocytes Percent Auto 9.9 % (18.0-42.0); Mean Corpuscular HGB Conc 33.1 g/dL (32.0-36.0); Mean Corpuscular Hemoglobin 29.9 pg (27.0-31.0); Mean Corpuscular Volume 90.3 fL (78.0-102.0); Mean Platelet Volume 8.7 fl (8.7-11.0); Monocytes Absolute Auto 1.36 K/mm3 (0.10-0.90); Monocytes Percent Auto 8.1 % (2.0-11.0); Neutrophils Absolute Auto 12.7 K/mm3 (1.7-7.2); Platelet Count Result 389 K/mm3 (150-420); Red Blood Count 4.35 M/mm3 (4.70-6.10); Red Cell Distribution Width 13.4 % (11.6-14.4); White Blood Count 16.7 K/mm3 (4.8-10.8)
[2019-07-08 05:53] LABS: Alanine Aminotransferase 60 U/L (16-63); Alkaline Phosphatase 73 U/L (46-116); Anion Gap 13.9 mmol/L (7-16); Aspartate Amino Transferase 18 U/L (15-37); Bilirubin,Total 0.4 mg/dL (0.00-1.00); Blood Urea Nitrogen 15 mg/dL (7-18); Calcium 8.5 mg/dL (8.5-10.1); Carbon Dioxide 26 mmol/L (21-32); Chloride 102 mmol/L (98-108); Estimated CRCL calculation 49 ml/min; Estimated Glomerular Filt Rate > 60; Glucose 179 mg/dL (70-99); Osmolality Calculated 290 mOsm/kg (285-295); Potassium 3.9 mmol/L (3.5-5.1); Sodium 138 mmol/L (136-145); Total Protein 6.3 g/dL (6.4-8.2)
[2019-07-08 08:05] LABS: Glucose Point of Care 150 (65-105)
[2019-07-08] MEDS: GLIMEPIRIDE 2 MG TABLET PO ×2 (08:12→17:16)
[2019-07-08] MEDS: ACETAMINOPHEN 500 MG TABLET 1000 MG PO (08:18)
[2019-07-08] MEDS: ENOXAPARIN 40 MG/0.4 ML SYRINGE SUB-Q (08:51)
[2019-07-08] MEDS: OPTI-GEN TAB 1 TABLET PO (08:51)
[2019-07-08] MEDS: CELECOXIB 100 MG CAPSULE 200 MG PO (08:51)
[2019-07-08] MEDS: BENZONATATE 100 MG CAPSULE 200 MG PO ×3 (08:52→17:16)
[2019-07-08] MEDS: ASPIRIN 81 MG CHEWABLE TABLET PO (08:52)
[2019-07-08] MEDS: MAGNESIUM OXIDE 400 MG TABLET PO (08:52)
[2019-07-08] MEDS: AZELASTINE HCL NASAL 0.1% 137 MCG/SPR 30 ML BTL 2 SPRAY NASAL ×2 (08:52→17:16)
[2019-07-08] MEDS: OMEGA 3 POLYUNSAT FATTY ACIDS 1 GM CAP PO (08:53)
[2019-07-08 11:34] LABS: Glucose Point of Care 150 (65-105)
--- NOTE | 2019-07-08 13:21 | P.PNIM_ITS ---
Progress Note: A&P Assessment and Plan (1) Pneumonia: Qualifiers: Laterality: bilateral Lung location: unspecified part of lung Pneumonia type: due to unspecified organism Qualified Code(s): J18.9 - Pneumonia, unspecified organism Code(s): J18.9 - Pneumonia, unspecified organism Status: Acute Assessment and Plan: * FAILURE OF OUTPATIENT TREATMENT PATIENT RECEIVED AZITHROMYCIN, CEFDINIR AND VALACYCLOVIR AT THAT TIME * chest x-ray on 07/08/2019 indicates Left basilar airspace disease, atelectasis versus developing pneumonia. * CT of the chest indicates Mild patchy groundglass opacities in the upper lobes and superior segment right lower lobe, consistent with pneumonia versus mild pulmonary edema. REPEAT CT PENDING * continue vancomycin discontinue the azithromycin and Rocephin and started Zosyn instead PER correctional guard recommendations * wbc's 25,000 on admission now 16.7 * INFLUENZA A AND B NEGATIVE X2 * will repeat CBC in the a.m. * Tylenol added for fever * patient currently afebrile * blood culture pending * continue Tessalon Perles and guaifenesin. * LEGIONELLA NON REACTION * PARAInfluenza, RSV PE, pneumococcus and are a image in UA pending and sputum culture. * ANCA WITH REFLUX , VZV SEROLOGY AND ANTI NUCLEAR ANTIBODIES TITER ORDER BY PCP STILL PENDING (2) Hypoxia: Code(s): R09.02 - Hypoxemia Status: Acute Assessment and Plan: * possibly secondary to pneumonia versus viral infection versus worsening asthma * refer to pneumonia and asthma (3) Asthma: Code(s): J45.909 - Unspecified asthma, uncomplicated Status: Acute Assessment and Plan: * worsened due to pneumonia * CT of the chest indicates mild emphysema * continue duo nebulizers * continue to monitor oxygen level * give supplementary oxygen needed * patient did not appear to be in any distress (4) Type 2 diabetes mellitus: Code(s): E11.9 - Type 2 diabetes mellitus without complications Status: Acute Assessment and Plan: * blood sugar 179 * LAST A1C 7.1 * continue home medication * sliding scale added low-dose * will adjust as needed * Accu-Cheks as ordered * continue diabetic diet (5) Rheumatoid arthritis: Code(s): M06.9 - Rheumatoid arthritis, unspecified Status: Acute Assessment and Plan: * PATIENT TAKES TYLENOL AT HOME. * CONTINUE USE OF TYLENOL (6) HLD (hyperlipidemia): Code(s): E78.5 - Hyperlipidemia, unspecified Status: Acute Assessment and Plan: continue statins (7) HTN (hypertension): Code(s): I10 - Essential (primary) hypertension Status: Acute Assessment and Plan: * blood pressure 135/77 * continue verapamil and hytrin * will adjust medication as needed * vital signs is ordered (8) Elevated WBCs: Code(s): D72.829 - Elevated white blood cell count, unspecified Status: Acute Assessment and Plan: * possibly secondary to viral infection versus pneumonia * patient tested forCOVID-19 RESULTS PENDING * blood culture pending * CBC in a.m. (9) Dysuria: Code(s): R30.0 - Dysuria Status: Acute Assessment and Plan: * ruled out * patient complains of painful urination * continue antibiotics use * UA and culture pending Subjective Date/time seen: 07/08/19 13:21 PATIENT ONCE AGAIN NOTED THAT HIS OVERALL CONDITION HAS IMPROVED SINCE HIS ADMISSION. HE DOES CONTINUE TO HAVE A NON
--- NOTE | 2019-07-08 13:21 | PM.IMPN ---
Progress Note: A&P Assessment and Plan (1) Pneumonia: Qualifiers: Laterality: bilateral Lung location: unspecified part of lung Pneumonia type: due to unspecified organism Qualified Code(s): J18.9 - Pneumonia, unspecified organism Code(s): J18.9 - Pneumonia, unspecified organism Status: Acute Assessment and Plan: FAILURE OF OUTPATIENT TREATMENT PATIENT RECEIVED AZITHROMYCIN, CEFDINIR AND VALACYCLOVIR AT THAT TIME chest x-ray on 07/08/2019 indicates Left basilar airspace disease, atelectasis versus developing pneumonia. CT of the chest indicates Mild patchy groundglass opacities in the upper lobes and superior segment right lower lobe, consistent with pneumonia versus mild pulmonary edema. REPEAT CT PENDING continue vancomycin discontinue the azithromycin and Rocephin and started Zosyn instead PER substance abuse rn recommendations wbc's 25,000 on admission now 16.7 INFLUENZA A AND B NEGATIVE X2 will repeat CBC in the a.m. Tylenol added for fever patient currently afebrile blood culture pending continue Tessalon Perles and guaifenesin. LEGIONELLA NON REACTION PARAInfluenza, RSV PE, pneumococcus and are a image in UA pending and sputum culture. ANCA WITH REFLUX , VZV SEROLOGY AND ANTI NUCLEAR ANTIBODIES TITER ORDER BY PCP STILL PENDING (2) Hypoxia: Code(s): R09.02 - Hypoxemia Status: Acute Assessment and Plan: possibly secondary to pneumonia versus viral infection versus worsening asthma refer to pneumonia and asthma (3) Asthma: Code(s): J45.909 - Unspecified asthma, uncomplicated Status: Acute Assessment and Plan: worsened due to pneumonia CT of the chest indicates mild emphysema continue duo nebulizers continue to monitor oxygen level give supplementary oxygen needed patient did not appear to be in any distress (4) Type 2 diabetes mellitus: Code(s): E11.9 - Type 2 diabetes mellitus without complications Status: Acute Assessment and Plan: blood sugar 179 LAST A1C 7.1 continue home medication sliding scale added low-dose will adjust as needed Accu-Cheks as ordered continue diabetic diet (5) Rheumatoid arthritis: Code(s): M06.9 - Rheumatoid arthritis, unspecified Status: Acute Assessment and Plan: PATIENT TAKES TYLENOL AT HOME. CONTINUE USE OF TYLENOL (6) HLD (hyperlipidemia): Code(s): E78.5 - Hyperlipidemia, unspecified Status: Acute Assessment and Plan: continue statins (7) HTN (hypertension): Code(s): I10 - Essential (primary) hypertension Status: Acute Assessment and Plan: blood pressure 135/77 continue verapamil and hytrin will adjust medication as needed vital signs is ordered (8) Elevated WBCs: Code(s): D72.829 - Elevated white blood cell count, unspecified Status: Acute Assessment and Plan: possibly secondary to viral infection versus pneumonia patient tested forCOVID-19 RESULTS PENDING blood culture pending CBC in a.m. (9) Dysuria: Code(s): R30.0 - Dysuria Status: Acute Assessment and Plan: ruled out patient complains of painful urination continue antibiotics use UA and culture pending Subjective Date/time seen: 07/08/19 13:21 PATIENT ONCE AGAIN NOTED THAT HIS OVERALL CONDITION HAS IMPROVED SINCE HIS ADMISSION. HE DOES CONTINUE TO HAVE A NONPRODUCTIVE COUGH AND NOTED THAT HIS CHEST CONGESTION HAS IMPROVED. HE DOES NOT HAVE ANY COMPLAINTS OF SHORTNESS OF BREATH AT THIS TIME. HE DID NOTE THAT HIS RHEUMATOID ARTHRITIS FLARED UP OVERNIGHT. HE USUALLY TAKES TYLENOL AT TO TREAT HIS RA. PATIENT PCP PRESCRIBED HIM GABAPENTIN DUE TO PAIN IN HIS RIGHT TMJ AREA. I WILL RESTART THAT. PATIENT ABLE TO TOLERATE ALL MEALS , SLEPT WELL AND AMBULATE AT BASELINE. PATIENT DENIES SOB, CP, PALPITATION, EXTREMITY NUMBNESS, LIGHTHEADNE
--- NOTE | 2019-07-08 14:20 | PC.NURSE ---
Patient transported off of floor via wheelchair to for chest CT. N95 mask on patient and transporter.
--- NOTE | 2019-07-08 14:37 | PC.NURSE ---
Patient transported back to floor, via wheelchair
[2019-07-08 17:16] LABS: Glucose Point of Care 157 (65-105)
--- NOTE | 2019-07-08 18:38 | P.PNCROSS_ITS ---
Event Note Event Note Event Note: Mr. Herrera states that he feels much better than when he was admitted. Bibasilar rales with no increased work of breathing or wheezing. Regular rate without murmur rub or gallop. Abdomen is soft. Scant peripheral edema. White count appears to have stabilized but is still elevated. No current steroids. We will monitor closely. Pathogen specific testing is revealed no cause as yet. I have examined the patient and reviewed the chart. I discussed the patient 's care with Angélica Quintero APN and agree with her assessment and plan.
[2019-07-08] MEDS: GABAPENTIN 100 MG CAPSULE 200 MG PO (20:21)
[2019-07-08] MEDS: TERAZOSIN HCL 5 MG CAPSULE 10 MG PO (20:21)
[2019-07-08] MEDS: SIMVASTATIN 10 MG TABLET PO (20:22)
[2019-07-08] MEDS: VERAPAMIL HCL 180 MG TABLET ER PO (20:22)
[2019-07-08 20:50] LABS: Glucose Point of Care 159 (65-105)
[2019-07-09] VITALS (7 sets, daily range): BP systolic 124–129; BP diastolic 64–74; PULSE 70–113; RESP 18–20; TEMP 36.4–36.6; O2SAT 90–98
[2019-07-09] MEDS: ZAFIRLUKAST 20 MG TABLET PO ×2 (00:25→13:41)
[2019-07-09] MEDS: IPRATROPIUM 0.5 MG/ALBUTEROL SULFATE 2.5 MG AMPUL.NEB 3 ML INHALATION ×4 (00:25→18:05)
[2019-07-09] MEDS: ACETAMINOPHEN 500 MG TABLET 1000 MG PO ×2 (00:45→08:26)
--- NOTE | 2019-07-09 02:40 | PC.NURSE ---
blood obtained from right hand for vanc trough and AM labs. tolerated well.
[2019-07-09 02:42] LABS: Hematocrit 37.4 % (37.0-46.0); Hemoglobin 12.3 g/dL (12.4-15.3); Mean Corpuscular HGB Conc 32.9 g/dL (32.0-36.0); Mean Corpuscular Hemoglobin 29.6 pg (27.0-31.0); Mean Corpuscular Volume 90.1 fL (78.0-102.0); Mean Platelet Volume 8.6 fl (8.7-11.0); Platelet Count Result 367 K/mm3 (150-420); Red Blood Count 4.15 M/mm3 (4.70-6.10); Red Cell Distribution Width 13.5 % (11.6-14.4); White Blood Count 18.2 K/mm3 (4.8-10.8)
[2019-07-09 02:58] LABS: Alanine Aminotransferase 43 U/L (16-63); Albumin Level 2.8 g/dL (3.4-5.0); Alkaline Phosphatase 66 U/L (46-116); Anion Gap 12.2 mmol/L (7-16); Aspartate Amino Transferase 11 U/L (15-37); Bilirubin,Total 0.4 mg/dL (0.00-1.00); Blood Urea Nitrogen 16 mg/dL (7-18); Calcium 8.5 mg/dL (8.5-10.1); Carbon Dioxide 27 mmol/L (21-32); Chloride 101 mmol/L (98-108); Estimated CRCL calculation 49 ml/min; Estimated Glomerular Filt Rate > 60; Glucose 145 mg/dL (70-99); Osmolality Calculated 286 mOsm/kg (285-295); Potassium 4.2 mmol/L (3.5-5.1); Sodium 136 mmol/L (136-145); Total Protein 6.8 g/dL (6.4-8.2)
[2019-07-09 02:59] LABS: Vancomycin Trough 12.5 ug/mL (10.0-15.0)
--- NOTE | 2019-07-09 03:53 | PC.NURSE ---
Pipeline called making recommendations to increase pt's vancomycin to 1.25 gms every 12 hours.
[2019-07-09] MEDS: GLIMEPIRIDE 2 MG TABLET PO ×2 (08:20→16:32)
[2019-07-09] MEDS: BENZONATATE 100 MG CAPSULE 200 MG PO ×3 (08:23→16:32)
[2019-07-09] MEDS: GABAPENTIN 100 MG CAPSULE PO ×2 (08:24→12:12)
[2019-07-09] MEDS: CELECOXIB 100 MG CAPSULE 200 MG PO (08:25)
[2019-07-09] MEDS: OMEGA 3 POLYUNSAT FATTY ACIDS 1 GM CAP PO (08:25)
[2019-07-09] MEDS: ASPIRIN 81 MG CHEWABLE TABLET PO (08:25)
[2019-07-09] MEDS: MAGNESIUM OXIDE 400 MG TABLET PO (08:26)
[2019-07-09] MEDS: OPTI-GEN TAB 1 TABLET PO (08:26)
[2019-07-09] MEDS: ENOXAPARIN 40 MG/0.4 ML SYRINGE SUB-Q (08:28)
[2019-07-09 08:52] LABS: Glucose Point of Care 122 (65-105)
[2019-07-09] MEDS: AZELASTINE HCL NASAL 0.1% 137 MCG/SPR 30 ML BTL 2 SPRAY NASAL ×2 (09:31→17:44)
[2019-07-09 12:59] LABS: Glucose Point of Care 127 (65-105)
--- NOTE | 2019-07-09 13:02 | PC.NURSE ---
@ [id number] nasal swab obtained for covid19 by [facility] infectional control and sent to public health.
--- NOTE | 2019-07-09 13:04 | PC.NURSE ---
1230 public health has speci
--- NOTE | 2019-07-09 13:44 | P.CONIM_ITS ---
Assessment and Plan Assessment and plan (1) Pneumonia: Qualifiers: Laterality: bilateral Lung location: unspecified part of lung Pneumonia type: due to unspecified organism Qualified Code(s): J18.9 - Pneumonia, unspecified organism <Eloise Quintero CLIENT SERVICES MANAGERAyushOnur - Last Filed: 07/09/19 13:53> Code(s): J18.9 - Pneumonia, unspecified organism <Eloise Quintero CLIENT SERVICES MANAGER-C - Last Filed: 07/09/19 13:53> Status: Acute <Eloise Quintero CLIENT SERVICES MANAGER-C - Last Filed: 07/09/19 13:53> Assessment and Plan: * FAILURE OF OUTPATIENT TREATMENT PATIENT RECEIVED AZITHROMYCIN, CEFDINIR AND VALACYCLOVIR AT THAT TIME * chest x-ray on 07/08/2019 indicates Left basilar airspace disease, atelectasis versus developing pneumonia. * CT of the chest indicates Mild patchy groundglass opacities in the upper lobes and superior segment right lower lobe, consistent with pneumonia versus mild pulmonary edema. REPEAT CT INDICATES IMPROVED PNEUMONIA * continue vancomycin AND Zosyn i PER government gauger recommendations * wbc's 25,000 on admission now 18.2 * INFLUENZA A AND B NEGATIVE X2 * will repeat CBC in the a.m. * Tylenol added for fever * patient currently afebrile * blood culture pending * continue Tessalon Perles and guaifenesin. * LEGIONELLA NON REACTION * PARAInfluenza, RSV PE, pneumococcus and are a image in UA pending and sputum culture. * PNEUMOPHILIA, HISTOPLASMA, BLASTOMYCES, COCCIDIOIDOMYCOSIS PENDING <Eloise LockettAbran Leon CLIENT SERVICES MANAGER-Onur - Last Filed: 07/09/19 13:53> (2) Hypoxia: Code(s): R09.02 - Hypoxemia <Eloise Quintero CLIENT SERVICES MANAGER-C - Last Filed: 07/09/19 13:53> Status: Acute <Eloise Quintero CLIENT SERVICES MANAGER-Onur - Last Filed: 07/09/19 13:53> Assessment and Plan: * RESOLVED * possibly secondary to pneumonia versus viral infection versus worsening asthma * refer to pneumonia and asthma <Eloise Quintero CLIENT SERVICES MANAGER-C - Last Filed: 07/09/19 13:53> (3) Asthma: Code(s): J45.909 - Unspecified asthma, uncomplicated <AYAN CaceresC - Last Filed: 07/09/19 13:53> Status: Acute <KAN Caceres - Last Filed: 07/09/19 13:53> Assessment and Plan: * STABLE * CT of the chest indicates mild emphysema * continue duo nebulizers * continue to monitor oxygen level * give supplementary oxygen needed * patient did not appear to be in any distress <KAN Caceres - Last Filed: 07/09/19 13:53> (4) Type 2 diabetes mellitus: Code(s): E11.9 - Type 2 diabetes mellitus without complications <KAN Caceres - Last Filed: 07/09/19 13:53> Status: Acute <KAN Caceres - Last Filed: 07/09/19 13:53> Assessment and Plan: * blood sugar 127 * LAST A1C 7.1 * continue home medication * sliding scale added low-dose * will adjust as needed * Accu-Cheks as ordered * continue diabetic diet <KAN Caceres - Last Filed: 07/09/19 13:53> (5) Rheumatoid arthritis: Code(s): M06.9 - Rheumatoid arthritis, unspecified <KAN Caceres - Last Filed: 07/09/19 13:53> Status: Acute <KAN Caceres - Last Filed: 07/09/19 13:53> Assessment and Plan: * PATIENT TAKES TYLENOL AT HOME. * CONTINUE USE OF TYLENOL <KAN Caceres - Last Filed: 07/09/19 13:53> (6) HLD (hyperlipidemia): Code(s): E78.5 - Hyperlipidemia, unspecified <KAN Caceres - Last Filed: 07/09/19 13:53> Status: Acute <KAN Caceres - Last Filed: 07/09/19 13:53> As
--- NOTE | 2019-07-09 13:44 | PM.IMCN ---
Assessment and Plan Assessment and plan (1) Pneumonia: Qualifiers: Laterality: bilateral Lung location: unspecified part of lung Pneumonia type: due to unspecified organism Qualified Code(s): J18.9 - Pneumonia, unspecified organism <KAN Caceres - Last Filed: 07/09/19 13:53> Code(s): J18.9 - Pneumonia, unspecified organism <KAN Caceres - Last Filed: 07/09/19 13:53> Status: Acute <Eloise LevyKAN Serna - Last Filed: 07/09/19 13:53> Assessment and Plan: FAILURE OF OUTPATIENT TREATMENT PATIENT RECEIVED AZITHROMYCIN, CEFDINIR AND VALACYCLOVIR AT THAT TIME chest x-ray on 07/08/2019 indicates Left basilar airspace disease, atelectasis versus developing pneumonia. CT of the chest indicates Mild patchy groundglass opacities in the upper lobes and superior segment right lower lobe, consistent with pneumonia versus mild pulmonary edema. REPEAT CT INDICATES IMPROVED PNEUMONIA continue vancomycin AND Zosyn i PER business process manager recommendations wbc's 25,000 on admission now 18.2 INFLUENZA A AND B NEGATIVE X2 will repeat CBC in the a.m. Tylenol added for fever patient currently afebrile blood culture pending continue Tessalon Perles and guaifenesin. LEGIONELLA NON REACTION PARAInfluenza, RSV PE, pneumococcus and are a image in UA pending and sputum culture. PNEUMOPHILIA, HISTOPLASMA, BLASTOMYCES, COCCIDIOIDOMYCOSIS PENDING <KAN Caceres - Last Filed: 07/09/19 13:53> (2) Hypoxia: Code(s): R09.02 - Hypoxemia <KIKI Caceres-C - Last Filed: 07/09/19 13:53> Status: Acute <KAN Caceres - Last Filed: 07/09/19 13:53> Assessment and Plan: RESOLVED possibly secondary to pneumonia versus viral infection versus worsening asthma refer to pneumonia and asthma <KAN Caceres - Last Filed: 07/09/19 13:53> (3) Asthma: Code(s): J45.909 - Unspecified asthma, uncomplicated <KAN Caceres - Last Filed: 07/09/19 13:53> Status: Acute <Eloise Quintero KIKI-C - Last Filed: 07/09/19 13:53> Assessment and Plan: STABLE CT of the chest indicates mild emphysema continue duo nebulizers continue to monitor oxygen level give supplementary oxygen needed patient did not appear to be in any distress <Eloise Quintero AYANC - Last Filed: 07/09/19 13:53> (4) Type 2 diabetes mellitus: Code(s): E11.9 - Type 2 diabetes mellitus without complications <Eloise Quintero KIKI-C - Last Filed: 07/09/19 13:53> Status: Acute <Eloise Quintero KAN - Last Filed: 07/09/19 13:53> Assessment and Plan: blood sugar 127 LAST A1C 7.1 continue home medication sliding scale added low-dose will adjust as needed Accu-Cheks as ordered continue diabetic diet <Eloise Quintero AYANC - Last Filed: 07/09/19 13:53> (5) Rheumatoid arthritis: Code(s): M06.9 - Rheumatoid arthritis, unspecified <Eloise Quintero KIKI-C - Last Filed: 07/09/19 13:53> Status: Acute <Eloise Quintero AYANC - Last Filed: 07/09/19 13:53> Assessment and Plan: PATIENT TAKES TYLENOL AT HOME. CONTINUE USE OF TYLENOL <Eloise Quintero KIKI-C - Last Filed: 07/09/19 13:53> (6) HLD (hyperlipidemia): Code(s): E78.5 - Hyperlipidemia, unspecified <Eloise Quintero KIKI-C - Last Filed: 07/09/19 13:53> Status: Acute <Eloise Quintero LOW ALTITUDE AIR DEFENSE GUNNER-C - Last Filed: 07/09/19 13:53> Assessment and Plan: continue statins <Eloise Quintero LOW ALTITUDE AIR DEFENSE GUNNER-C - Last Filed: 07/09/19 13:53> (7) HTN (hypertension): Code(s): I10 - Essential (primary) hypertension <Eloise Quintero LOW ALTITUDE AIR DEFENSE GUNNER-C - Last Filed: 07/09/19 13:53> Status: Acute <Eloise Quintero, LOW ALTITUDE AIR DEFENSE GUNNER-C - Last Filed: 07/09/19 13:53> Assessment and Plan: blood pressure 128/74 co
[2019-07-09 16:44] LABS: Glucose Point of Care 152 (65-105)
--- NOTE | 2019-07-09 18:13 | PC.NURSE ---
Tata Smith, Infection Control nurse notified, that all swab results are negative. Patient can come out of isolation and room can be cleaned as normal room.
--- NOTE | 2019-07-09 18:19 | PC.NURSE ---
notified of negative nasal swab result.
[2019-07-09 19:09] LABS: Pneumococcal Antigen Urine Not Detected (Not Detected)
--- NOTE | 2019-07-09 19:55 | PC.NURSE ---
Visiting with , no distress, up independent in room, taken off isolation and changed to standard precautions today with negative culture results, denies needs
[2019-07-09] MEDS: VERAPAMIL HCL 180 MG TABLET ER PO (21:28)
[2019-07-09] MEDS: GABAPENTIN 100 MG CAPSULE 200 MG PO (21:29)
[2019-07-09] MEDS: TERAZOSIN HCL 5 MG CAPSULE 10 MG PO (21:29)
[2019-07-09] MEDS: SIMVASTATIN 10 MG TABLET PO (21:29)
[2019-07-09 21:41] LABS: Glucose Point of Care 221 (65-105)
--- NOTE | 2019-07-09 21:51 | PC.NURSE ---
zosyn infusing, denies needs, taking po fluids well, voiding without difficulty, no distress note,d no cough noted
--- NOTE | 2019-07-09 23:29 | PC.NURSE ---
pt in bed, appears to be asleep. resp even and unlabored. call light in reach. no needs at present.
[2019-07-10 00:13] VITALS: BP 126/78; PULSE 99; RESP 18; TEMP 36.4; O2SAT 99
[2019-07-10] MEDS: IPRATROPIUM 0.5 MG/ALBUTEROL SULFATE 2.5 MG AMPUL.NEB 3 ML INHALATION ×2 (00:20→05:34)
[2019-07-10] MEDS: ZAFIRLUKAST 20 MG TABLET PO (00:21)
[2019-07-10 05:27] LABS: Hematocrit 39.5 % (37.0-46.0); Hemoglobin 12.6 g/dL (12.4-15.3); Mean Corpuscular HGB Conc 31.9 g/dL (32.0-36.0); Mean Corpuscular Volume 90.8 fL (78.0-102.0); Mean Platelet Volume 8.7 fl (8.7-11.0); Platelet Count Result 360 K/mm3 (150-420); Red Blood Count 4.35 M/mm3 (4.70-6.10); Red Cell Distribution Width 13.3 % (11.6-14.4); White Blood Count 13.7 K/mm3 (4.8-10.8)
[2019-07-10 05:36] VITALS: PULSE 93; RESP 16
[2019-07-10 05:45] VITALS: PULSE 96; RESP 16
[2019-07-10 05:47] LABS: Alanine Aminotransferase 43 U/L (16-63); Albumin Level 2.8 g/dL (3.4-5.0); Alkaline Phosphatase 58 U/L (46-116); Aspartate Amino Transferase 15 U/L (15-37); Bilirubin,Total 0.4 mg/dL (0.00-1.00); Blood Urea Nitrogen 16 mg/dL (7-18); Calcium 8.5 mg/dL (8.5-10.1); Carbon Dioxide 27 mmol/L (21-32); Chloride 101 mmol/L (98-108); Estimated CRCL calculation 49 ml/min; Estimated Glomerular Filt Rate > 60; Glucose 166 mg/dL (70-99); Osmolality Calculated 293 mOsm/kg (285-295); Sodium 139 mmol/L (136-145); Total Protein 6.9 g/dL (6.4-8.2)
[2019-07-10 07:30] VITALS: BP 137/79; PULSE 95; RESP 16; TEMP 36.4; O2SAT 96
[2019-07-10 08:00] LABS: Glucose Point of Care 119 (65-105)
[2019-07-10] MEDS: OPTI-GEN TAB 1 TABLET PO (08:38)
[2019-07-10] MEDS: BENZONATATE 100 MG CAPSULE 200 MG PO (08:41)
[2019-07-10] MEDS: MAGNESIUM OXIDE 400 MG TABLET PO (08:41)
[2019-07-10] MEDS: ASPIRIN 81 MG CHEWABLE TABLET PO (08:41)
[2019-07-10] MEDS: GLIMEPIRIDE 2 MG TABLET PO (08:42)
[2019-07-10] MEDS: OMEGA 3 POLYUNSAT FATTY ACIDS 1 GM CAP PO (08:42)
[2019-07-10] MEDS: AZELASTINE HCL NASAL 0.1% 137 MCG/SPR 30 ML BTL 2 SPRAY NASAL (08:43)
[2019-07-10] MEDS: GABAPENTIN 100 MG CAPSULE PO ×2 (08:43→11:30)
[2019-07-10] MEDS: CELECOXIB 100 MG CAPSULE 200 MG PO (08:43)
[2019-07-10] MEDS: ENOXAPARIN 40 MG/0.4 ML SYRINGE SUB-Q (08:44)
--- NOTE | 2019-07-10 10:53 | P.DS_ITS ---
DS: Diagnosis Admitting Diagnosis Admitting Diagnosis: Pneumonia, unspecified organism Discharge Diagnosis (1) Pneumonia: Qualifiers: Laterality: bilateral Lung location: unspecified part of lung Pneumonia type: due to unspecified organism Qualified Code(s): J18.9 - Pneumonia, unspecified organism Code(s): J18.9 - Pneumonia, unspecified organism Status: Acute Assessment and Plan: * FAILURE OF OUTPATIENT TREATMENT PATIENT RECEIVED AZITHROMYCIN, CEFDINIR AND VALACYCLOVIR AT THAT TIME * chest x-ray on 07/08/2019 indicates Left basilar airspace disease, atelectasis versus developing pneumonia. * CT of the chest indicates Mild patchy groundglass opacities in the upper lobes and superior segment right lower lobe, consistent with pneumonia versus mild pulmonary edema. REPEAT CT INDICATES IMPROVED PNEUMONIA * continue vancomycin AND Zosyn i PER pad extraction tender recommendations condition improved. Patient was discharged on doxycycline and Augmentin x7 days * wbc's 25,000 on admission now 13.7 on discharge * INFLUENZA A AND B NEGATIVE X2 * repeat CBC is 1 day before follow-up appointment with PCP * patient currently afebrile * blood culture pending * continue Tessalon Perles and guaifenesin. * LEGIONELLA NON REACTION * PARAInfluenza, RSV PE, pneumococcus and are a image in UA pending and sputum culture. * PNEUMOPHILIA, HISTOPLASMA, BLASTOMYCES, COCCIDIOIDOMYCOSIS PENDING * sputum with a growth of Gram-positive cocci (2) Hypoxia: Code(s): R09.02 - Hypoxemia Status: Acute Assessment and Plan: * RESOLVED * possibly secondary to pneumonia versus viral infection versus worsening asthma * refer to pneumonia and asthma (3) Asthma: Code(s): J45.909 - Unspecified asthma, uncomplicated Status: Acute Assessment and Plan: * STABLE and improved * CT of the chest indicates mild emphysema * continue home nebulizer (4) Type 2 diabetes mellitus: Code(s): E11.9 - Type 2 diabetes mellitus without complications Status: Acute Assessment and Plan: * blood sugar stable * LAST A1C 7.1 * continue home medication * * (5) Rheumatoid arthritis: Code(s): M06.9 - Rheumatoid arthritis, unspecified Status: Acute Assessment and Plan: * PATIENT TAKES TYLENOL AT HOME. (6) HLD (hyperlipidemia): Code(s): E78.5 - Hyperlipidemia, unspecified Status: Acute Assessment and Plan: continue statins (7) HTN (hypertension): Code(s): I10 - Essential (primary) hypertension Status: Acute Assessment and Plan: * blood pressure stable * continue home medication verapamil and hytrin * * (8) Elevated WBCs: Code(s): D72.829 - Elevated white blood cell count, unspecified Status: Acute Assessment and Plan: * possibly secondary to viral infection versus pneumonia * patient tested forCOVID-19 results were negative for upton virus (9) Dysuria: Code(s): R30.0 - Dysuria Status: Acute Assessment and Plan: * ruled out * patient complains of painful urination * continue antibiotics use * UA and culture pending DS: Summary Hospital Course Hospital Course: H&P for 07/05/2019: Narrative: Binh Herrera is a 74 year old male that presented to the ED today with complaints of shortness of breath dyspnea and elevated wbc's. Patient has a past medical history of asthma, rheumatoid arthritis, type 2 diabetes,
--- NOTE | 2019-07-10 10:53 | PM.DS ---
DS: Diagnosis Admitting Diagnosis Admitting Diagnosis: Pneumonia, unspecified organism Discharge Diagnosis (1) Pneumonia: Qualifiers: Laterality: bilateral Lung location: unspecified part of lung Pneumonia type: due to unspecified organism Qualified Code(s): J18.9 - Pneumonia, unspecified organism Code(s): J18.9 - Pneumonia, unspecified organism Status: Acute Assessment and Plan: FAILURE OF OUTPATIENT TREATMENT PATIENT RECEIVED AZITHROMYCIN, CEFDINIR AND VALACYCLOVIR AT THAT TIME chest x-ray on 07/08/2019 indicates Left basilar airspace disease, atelectasis versus developing pneumonia. CT of the chest indicates Mild patchy groundglass opacities in the upper lobes and superior segment right lower lobe, consistent with pneumonia versus mild pulmonary edema. 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 Patient was discharged on doxycycline and Augmentin x7 days wbc's 25,000 on admission now 13.7 on discharge INFLUENZA A AND B NEGATIVE X2 repeat CBC is 1 day before follow-up appointment with PCP patient currently afebrile blood culture pending continue Tessalon Perles and guaifenesin. LEGIONELLA NON REACTION PARAInfluenza, RSV PE, pneumococcus and are a image in UA pending and sputum culture. PNEUMOPHILIA, HISTOPLASMA, BLASTOMYCES, COCCIDIOIDOMYCOSIS PENDING sputum with a growth of Gram-positive cocci (2) Hypoxia: Code(s): R09.02 - Hypoxemia Status: Acute Assessment and Plan: RESOLVED possibly secondary to pneumonia versus viral infection versus worsening asthma refer to pneumonia and asthma (3) Asthma: Code(s): J45.909 - Unspecified asthma, uncomplicated Status: Acute Assessment and Plan: STABLE and improved CT of the chest indicates mild emphysema continue home nebulizer (4) Type 2 diabetes mellitus: Code(s): E11.9 - Type 2 diabetes mellitus without complications Status: Acute Assessment and Plan: blood sugar stable LAST A1C 7.1 continue home medication (5) Rheumatoid arthritis: Code(s): M06.9 - Rheumatoid arthritis, unspecified Status: Acute Assessment and Plan: PATIENT TAKES TYLENOL AT HOME. (6) HLD (hyperlipidemia): Code(s): E78.5 - Hyperlipidemia, unspecified Status: Acute Assessment and Plan: continue statins (7) HTN (hypertension): Code(s): I10 - Essential (primary) hypertension Status: Acute Assessment and Plan: blood pressure stable continue home medication verapamil and hytrin (8) Elevated WBCs: Code(s): D72.829 - Elevated white blood cell count, unspecified Status: Acute Assessment and Plan: possibly secondary to viral infection versus pneumonia patient tested forCOVID-19 results were negative for upton virus (9) Dysuria: Code(s): R30.0 - Dysuria Status: Acute Assessment and Plan: ruled out patient complains of painful urination continue antibiotics use UA and culture pending DS: Summary Hospital Course Hospital Course: H&P for 07/05/2019: Narrative: Binh Herrera is a 74 year old male that presented to the ED today with complaints of shortness of breath dyspnea and elevated wbc's. Patient has a past medical history of asthma, rheumatoid arthritis, type 2 diabetes, hypertension and HLD . According to patient weeks ago he was with fever 101-102, a nonproductive cough, shortness of breath, occasional lightheadedness and diaphoretic. He does have a history of asthma, according to patient he usually uses his nebulizer once a week. For the past weeks he has had to uses nebulizer twice a day. he has not had any recent fevers He did have an appointment with his primary care physician today who referred him to the ED. his PCP referred him to
[2019-07-10 11:18] LABS: Glucose Point of Care 165 (65-105)
--- NOTE | 2019-07-10 13:00 | PC.NURSE ---
Patient to be discharged home. All belongings gathered together and sent home with patient. This nurse reviewed discharge instructions and education with patient and his . Patient states understanding. Denies any questions at present. Provided with call back number incase any questions/issues arise. IV sites discontinued, dressings applied to sites. Patient tolerated well. Patient accompanied to front door by this nurse, patient ambulated with no assist. Left via private vehicle with .
[2019-07-11 10:05] LABS: Legionella pneumophila Ag Ur Not Detected (Not Detected)
== END 2019-07-10 13:00 | disposition home or self-care (01) | DRG 195 ==
LOC: CHSED 13:08 → CHS2ND 13:40
PROVIDERS: Nurse Practitioner; Admitting Provider Emergency Medicine; Emergency Provider Emergency Medicine; PCP Internal Medicine; Visit Provider Emergency Medicine
DX: J18.9 Pneumonia, unspecified organism (principal); R09.02 Hypoxemia; Z20.828 Contact with and (suspected) exposure to other viral communicable diseases; R30.0 Dysuria; J45.909 Unspecified asthma, uncomplicated; I10 Essential (primary) hypertension; E11.9 Type 2 diabetes mellitus without complications; M06.9 Rheumatoid arthritis, unspecified; E78.5 Hyperlipidemia, unspecified
CPT/HCPCS: 36415; 71260; 80048; 80053; 80202; 81001; 83605; 84484; 85025; 85027; 87040; 87070; 87086; 87205; 87280; 87420; 87449; 87631; 87804; 87899; 93005; 94640; 96365; 99283; 99285; A9270; J0456; J0696; J1650; J2543; J3370; Q9965

== ENCOUNTER 2019-07-16 11:18 | Outpatient (CLI) | payer OTHER, SELFPAY ==
[2019-07-16 11:30] LABS: Hemoglobin 13.9 g/dL (12.4-15.3); Mean Corpuscular HGB Conc 32.3 g/dL (32.0-36.0); Mean Corpuscular Hemoglobin 29.4 pg (27.0-31.0); Mean Corpuscular Volume 90.9 fL (78.0-102.0); Mean Platelet Volume 8.7 fl (8.7-11.0); Platelet Count Result 320 K/mm3 (150-420); Red Blood Count 4.73 M/mm3 (4.70-6.10); Red Cell Distribution Width 13.5 % (11.6-14.4); White Blood Count 14.2 K/mm3 (4.8-10.8)
[2019-07-16 12:29] LABS: Alanine Aminotransferase 33 U/L (16-63); Albumin Level 3.5 g/dL (3.4-5.0); Alkaline Phosphatase 77 U/L (46-116); Anion Gap 13.9 mmol/L (7-16); Aspartate Amino Transferase 13 U/L (15-37); Bilirubin,Total 0.3 mg/dL (0.00-1.00); Blood Urea Nitrogen 20 mg/dL (7-18); Calcium 9.2 mg/dL (8.5-10.1); Carbon Dioxide 28 mmol/L (21-32); Chloride 101 mmol/L (98-108); Estimated Glomerular Filt Rate > 60; Glucose 186 mg/dL (70-99); Osmolality Calculated 295 mOsm/kg (285-295); Potassium 3.9 mmol/L (3.5-5.1); Sodium 139 mmol/L (136-145); Total Protein 6.9 g/dL (6.4-8.2)
[2019-07-17 16:45] LABS: Creatine Kinase 36 U/L (39-308)
[2019-07-17 16:46] LABS: Troponin I < 0.02 ng/mL (0.00-0.056)
== END 2019-07-16 11:19 | disposition home or self-care (01) ==
PROVIDERS: PCP Internal Medicine; Visit Provider Nurse Practitioner
DX: J18.9 Pneumonia, unspecified organism (principal)
CPT/HCPCS: 36415; 80053; 82550; 82553; 84484; 85027

== ENCOUNTER 2019-12-05 10:24 | Outpatient (CLI) | payer OTHER, SELFPAY ==
[2019-12-05 10:43] LABS: Basophils Absolute Auto 0.02 K/mm3 (0.00-0.10); Basophils Percent Auto 0.2 % (0.0-1.0); Hematocrit 48.1 % (37.0-46.0); Hemoglobin 14.9 g/dL (12.4-15.3); Immature Granulocyte Percent A 0.8 % (0.0-0.0); Lymphocytes Absolute Auto 0.76 K/mm3 (1.10-4.50); Lymphocytes Percent Auto 6.3 % (18.0-42.0); Mean Corpuscular Hemoglobin 26.7 pg (27.0-31.0); Mean Platelet Volume 9.4 fl (8.7-11.0); Monocytes Absolute Auto 0.97 K/mm3 (0.10-0.90); Monocytes Percent Auto 8.1 % (2.0-11.0); Neutrophils Absolute Auto 10.1 K/mm3 (1.7-7.2); Neutrophils Percent Auto 84.6 % (50.0-70.0); Platelet Count Result 247 K/mm3 (150-420); Red Blood Count 5.59 M/mm3 (4.70-6.10); Red Cell Distribution Width 13.5 % (11.6-14.4)
[2019-12-05 11:48] LABS: Alanine Aminotransferase 54 U/L (16-63); Albumin Level 3.6 g/dL (3.4-5.0); Alkaline Phosphatase 86 U/L (46-116); Anion Gap 9 mmol/L (8-16); Aspartate Amino Transferase 21 U/L (15-37); Bilirubin,Total 0.9 mg/dL (0.00-1.00); Blood Urea Nitrogen 19 mg/dL (7-18); Calcium 9.1 mg/dL (8.5-10.1); Carbon Dioxide 32 mmol/L (21-32); Chloride 99 mmol/L (98-108); Estimated Glomerular Filt Rate 53; Glucose 257 mg/dL (70-99); Osmolality Calculated 301 mOsm/kg (285-295); Potassium 3.7 mmol/L (3.5-5.1); Sodium 140 mmol/L (136-145); Total Protein 7.2 g/dL (6.4-8.2)
[2019-12-08 20:46] LABS: Immunoglobulin E 145 kU/L (<=114)
[2019-12-09 21:21] LABS: Immunoglobulin A 290 mg/dL (70-320); Immunoglobulin G 909 mg/dL (600-1540); Immunoglobulin M 37 mg/dL (50-300)
== END 2019-12-05 10:25 | disposition home or self-care (01) ==
PROVIDERS: PCP Internal Medicine
DX: D84.9 Immunodeficiency, unspecified (principal); J45.50 Severe persistent asthma, uncomplicated; J30.1 Allergic rhinitis due to pollen
CPT/HCPCS: 36415; 80053; 82784; 82785; 85025

== ENCOUNTER 2019-12-10 13:06 | Outpatient (CLI) | payer OTHER, SELFPAY ==
--- NOTE | ~2019-12-10 | CT_ITS ---
EXAMINATION: CT sinus wo con EXAM DATE: 12/10/2019 13:39 INDICATION: Frontal headache, pressure, right ear drainage. Sinusitis. Acute bronchitis. TECHNIQUE: Spiral CT of the sinuses was acquired in the axial plane. Coronal and sagittal reformatte d images were also reviewed. The dose-length product (DLP) for this examination was 273.54 mGy-cm. Iterative reconstruction (ASIR) was used as dose reduction technique. Correlation is made to head CT 05/23/2018. FINDINGS: The sinuses are normally developed. The sinuses are well aerated. The ostiomeatal unit s are patent. There is no sinus wall thickening. There is mild rightward nasal septal deviation . The mastoid air cells and middle ears are well aerated. External auditory canals are patent. T he orbits and visualized soft tissues are unremarkable. IMPRESSION: Clear sinuses. Reviewed, dictated and finalized at location B. IMPRESSION: Clear sinuses.
--- NOTE | ~2019-12-10 | CT_ITS ---
EXAMINATION: CT chest wo con EXAM DATE: 12/10/2019 13:39 INDICATION: Bronchitis. TECHNIQUE: Spiral CT of the chest without contrast. Axial, coronal and sagittal images were reviewe d. Coronal maximum intensity pixel images of chest reviewed. The dose-length product (DLP) for this examination was 196.33 mGy-cm. The exposure was tailored according to patient size (auto mA exposur e control), and iterative reconstruction (ASIR) was used as additional dose reduction technique. Comp arison is made to prior examination from 07/08/2019. FINDINGS: Resolution of previously seen patchy small ill-defined peripheral airspace disease. The ma in, central pulmonary arteries are dilated which can indicate elevated pulmonary arterial pressure, p ulmonary arterial hypertension. There is small pericardial effusion. Tracheobronchial tree is paul nt. There is no mediastinal, hilar or axillary lymphadenopathy. There is no pneumothorax. Heart normal in size. There is mild coronary arterial calcification, arterial sclerosis. Centrally loca jasvir liver cyst measuring 1.3 cm. There is thoracic spondylosis without osteoblastic or osteolytic le sions identified. IMPRESSION: 1. Small pericardial effusion. 2. Dilated pulmonary arteries. 3. Clear lungs. Reviewed, dictated and finalized at location B.
== END 2019-12-10 13:07 | disposition home or self-care (01) ==
LOC: CHSIMG 13:12
PROVIDERS: PCP Internal Medicine
DX: J20.9 Acute bronchitis, unspecified (principal); J32.9 Chronic sinusitis, unspecified
CPT/HCPCS: 70486; 71250

== ENCOUNTER 2019-12-12 10:04 | Outpatient (CLI) | payer OTHER, SELFPAY | END 2019-12-12 10:05 | disposition home or self-care (01) | PROVIDERS: PCP Internal Medicine | DX: R05 Cough (principal) | CPT/HCPCS: 87102; 87206 ==

== ENCOUNTER 2019-12-16 10:34 | Outpatient (CLI) | payer OTHER, SELFPAY ==
[2019-12-21 18:42] LABS: S. pneumonia Serotype 1 (1) 3.1; S. pneumonia Serotype 12 (12F) 14.7; S. pneumonia Serotype 14 (14) 5.7; S. pneumonia Serotype 17 (17F) 1.4; S. pneumonia Serotype 18C (56) 4.1; S. pneumonia Serotype 19 (19F) 43.9; S. pneumonia Serotype 2 (2) 0.6; S. pneumonia Serotype 20 (20) 5.8; S. pneumonia Serotype 22 (22F) <0.3; S. pneumonia Serotype 23 (23F) 5.4; S. pneumonia Serotype 3 (3) 0.7; S. pneumonia Serotype 34 (10A) 14.5; S. pneumonia Serotype 4 (4) 1.5; S. pneumonia Serotype 43 (11A) 3.8; S. pneumonia Serotype 51 (7F) 3.5; S. pneumonia Serotype 54 (15B) <0.3; S. pneumonia Serotype 57 (19A) 2.7; S. pneumonia Serotype 6B (26) 4.1; S. pneumonia Serotype 70 (33F) 3.8; S. pneumonia Serotype 9 (9N) 6.5
== END 2019-12-16 10:35 | disposition home or self-care (01) ==
PROVIDERS: PCP Internal Medicine
DX: D84.9 Immunodeficiency, unspecified (principal)
CPT/HCPCS: 36415; 86317; 86684

== ENCOUNTER 2019-12-31 10:36 | Outpatient (CLI) | payer OTHER, SELFPAY ==
--- NOTE | ~2019-12-31 | XR_ITS ---
EXAMINATION: XR chest 2V 12/31/2019 11:03 INDICATION: Cardial effusion. History of asthma. PROCEDURE: 2 view chest COMPARISON: Comparison to multiple prior studies sequentially, with oldest reviewed study dated 07/02. FINDINGS: The lungs are clear. The cardiomediastinal silhouette is within normal limits. There are no pleural effusions. There is no pneumothorax suspected. IMPRESSION: 1: NO ACUTE CARDIOPULMONARY DISEASE. Reviewed, dictated and finalized at location A.
[2019-12-31 10:51] LABS: Basophils Absolute Auto 0.01 K/mm3 (0.00-0.10); Basophils Percent Auto 0.1 % (0.0-1.0); Hematocrit 48.7 % (37.0-46.0); Immature Granulocyte Absolute 0.04 K/mm3 (0.00-0.00); Immature Granulocyte Percent A 0.6 % (0.0-0.0); Lymphocytes Absolute Auto 0.99 K/mm3 (1.10-4.50); Lymphocytes Percent Auto 14.8 % (18.0-42.0); Mean Corpuscular HGB Conc 30.8 g/dL (32.0-36.0); Mean Corpuscular Hemoglobin 26.5 pg (27.0-31.0); Mean Platelet Volume 9.3 fl (8.7-11.0); Monocytes Absolute Auto 0.65 K/mm3 (0.10-0.90); Monocytes Percent Auto 9.7 % (2.0-11.0); Neutrophils Percent Auto 74.8 % (50.0-70.0); Platelet Count Result 220 K/mm3 (150-420); Red Blood Count 5.66 M/mm3 (4.70-6.10); Red Cell Distribution Width 14.1 % (11.6-14.4); White Blood Count 6.7 K/mm3 (4.8-10.8)
[2019-12-31 11:15] LABS: Lactate Dehydrogenase 204 U/L (85-227); Thyroid Stimulating Hormone 4.63 uIU/mL (0.36-3.74)
[2019-12-31 11:20] LABS: Troponin I < 0.02 ng/mL (0.00-0.056)
== END 2019-12-31 10:37 | disposition home or self-care (01) ==
PROVIDERS: PCP Internal Medicine
DX: R07.89 Other chest pain (principal); I31.3 Pericardial effusion (noninflammatory)
CPT/HCPCS: 36415; 71046; 82553; 83615; 84439; 84443; 84484; 85025; 86038

== ENCOUNTER 2020-03-02 14:24 | Outpatient (CLI) | payer OTHER, SELFPAY ==
--- NOTE | ~2020-03-02 | US_ITS ---
EXAMINATION: US carotid duplex BI DATE: 03/02/2020 14:51 INDICATION: Carotid bruits. TECHNIQUE: Grayscale, color Doppler, and pulsed Doppler images of the cervical carotid arteries were obtained. The degree of vessel stenosis is placed in one of the following categories: normal, <50%, 5 0-69%, >=70% but less than near-occlusion, near-occlusion, or total occlusion. Note that percent sten osis relative to normal distal artery lumen diameter is indirectly measured from velocity measurement s as described by Lewis, et al. Radiology 2003; 229:340-346. COMPARISON: None. FINDINGS: RIGHT: The right common carotid artery (CCA) peak systolic velocity (PSV) is 84 cm/s. The right internal car otid artery (ICA) PSV is 71 cm/s. The right ICA end-diastolic velocity (EDV) is 10 cm/s. The right IC A/CCA PSV ratio is 0.8. Grayscale and color Doppler images yield an estimate of <50% diameter reducti on from plaque in the ICA. There is antegrade flow in the right vertebral artery. LEFT: The left CCA PSV is 84 cm/s. The left ICA PSV is 71 cm/s. The left ICA EDV is 9 cm/s. The left ICA/CC A PSV ratio is 0.8. Grayscale and color Doppler images yield an estimate of <50% diameter reduction f rom plaque in the ICA. There is antegrade flow in the left vertebral artery. IMPRESSION: 1. <50% stenosis in the right internal carotid artery. 2. <50% stenosis in the left internal carotid artery. Reviewed, dictated and finalized at location B. F HAND
== END 2020-03-02 14:25 | disposition home or self-care (01) ==
PROVIDERS: PCP Internal Medicine; Visit Provider Internal Medicine
DX: R09.89 Other specified symptoms and signs involving the circulatory and respiratory systems (principal)
CPT/HCPCS: 93880

== ENCOUNTER 2020-04-27 16:09 | Outpatient (CLI) | payer OTHER, SELFPAY ==
[2020-04-27 16:43] LABS: SARS-CoV-2 Ag Negative (Negative)
== END 2020-04-27 16:10 | disposition home or self-care (01) ==
LOC: CHSLAB 16:12
PROVIDERS: PCP Internal Medicine; Visit Provider Internal Medicine
DX: Z20.828 Contact with and (suspected) exposure to other viral communicable diseases (principal)
CPT/HCPCS: 87426; C9803

== ENCOUNTER 2020-04-27 17:11 | Outpatient (CLI) | payer OTHER, SELFPAY ==
[2020-04-29 19:23] LABS: SARS-CoV-2 RNA PCR Negative
== END 2020-04-27 17:12 | disposition home or self-care (01) ==
LOC: CHSLAB 17:14
PROVIDERS: PCP Internal Medicine; Visit Provider Internal Medicine
DX: Z20.828 Contact with and (suspected) exposure to other viral communicable diseases (principal)
CPT/HCPCS: 87426; C9803; U0003

== ENCOUNTER 2020-05-05 09:57 | Outpatient (CLI) | payer OTHER, SELFPAY ==
[2020-05-05 10:55] LABS: Hematocrit 45.7 % (37.0-46.0); Hemoglobin 15.1 g/dL (12.4-15.3); Mean Corpuscular Hemoglobin 29.3 pg (27.0-31.0); Mean Corpuscular Volume 88.6 fL (78.0-102.0); Mean Platelet Volume 9.4 fl (8.7-11.0); Platelet Count Result 239 K/mm3 (150-420); Red Blood Count 5.16 M/mm3 (4.70-6.10); Red Cell Distribution Width 12.1 % (11.6-14.4)
[2020-05-05 10:57] LABS: Appearance Urine Clear (Clear); Bilirubin Urine Negative (Negative); Color Urine Yellow (Yellow); Glucose Urine UA 3+ (Negative); Ketones Urine 1+ (Negative); Leukocyte Esterase Ur Negative LEU/UL (Negative); Nitrate Urine Negative (Negative); Protein Urine Negative (Negative); Specific Grav Ur 1.015 (1.010-1.020); Urobilinogen Urine 0.2 mg/dL (0.2-1.0); pH Urine 5.5 (5.0-8.0)
[2020-05-05 11:01] LABS: White Blood Count 23.4 K/mm3 (4.8-10.8)
[2020-05-05 11:04] LABS: Add Urine Microscopic? YES; Blood Urine Trace-Intact (Negative); RBC Urine 0-2 /hpf (0-2); Squamous Epithelial Cell Urine None seen /hpf (Few); WBC Urine None seen /hpf (0-3)
[2020-05-05 11:05] LABS: Bacteria Urine None seen /hpf
[2020-05-05 11:13] LABS: SARS-CoV-2 Ag Negative (Negative)
[2020-05-05 11:16] LABS: Band Neutrophils Percent 2 % (0-6); Lymphocytes Absolute Manual 1.17 K/mm3 (1.1-4.5); Lymphocytes Percent Manual 5 % (18-44); Metamyelocytes Percent 1 %; Monocytes Absolute Manual 1.17 K/mm3 (0.1-0.90); Monocytes Percent Manual 5 % (3-9); Neutrophils Absolute Manual 20.82 K/mm3 (1.3-6.7); Neutrophils Percent Manual 87 % (46-73); Platelet Estimate Adequate (Adequate); Total Cells Counted 100
[2020-05-05 11:22] LABS: Alanine Aminotransferase 106 U/L (16-63); Albumin Level 2.8 g/dL (3.4-5.0); Alkaline Phosphatase 90 U/L (46-116); Anion Gap 12 mmol/L (8-16); Aspartate Amino Transferase 35 U/L (15-37); Bilirubin,Total 0.6 mg/dL (0.00-1.00); Blood Urea Nitrogen 25 mg/dL (7-18); Calcium 8.9 mg/dL (8.5-10.1); Carbon Dioxide 27 mmol/L (21-32); Chloride 98 mmol/L (98-108); Estimated Glomerular Filt Rate 52; Glucose 298 mg/dL (70-99); Osmolality Calculated 299 mOsm/kg (285-295); Potassium 3.5 mmol/L (3.5-5.1); Sodium 137 mmol/L (136-145); Total Protein 7.6 g/dL (6.4-8.2)
[2020-05-05 12:12] LABS: CRP 23.3 mg/dL (0.0-0.9)
== END 2020-05-05 09:58 | disposition home or self-care (01) ==
LOC: CHSLAB 10:01
PROVIDERS: PCP Internal Medicine; Visit Provider Internal Medicine
DX: R50.9 Fever, unspecified (principal); R09.81 Nasal congestion; Z20.822 Contact with and (suspected) exposure to COVID-19
CPT/HCPCS: 36415; 80053; 81001; 85025; 86140; 87426; C9803

== ENCOUNTER 2020-05-05 11:27 | Emergency (ER) | payer OTHER, SELFPAY ==
[2020-05-05] VITALS (17 sets, daily range): BP systolic 116–139; BP diastolic 70–86; PULSE 94–106; RESP 16; TEMP 36.3; O2SAT 90–94
--- NOTE | ~2020-05-05 | XR_ITS ---
EXAMINATION: XR chest 2V DATE: 05/05/2020 12:34 INDICATION: Leukocytosis. Fever and cough and shortness of breath. TECHNIQUE: Frontal and lateral views of the chest were obtained. COMPARISON: Chest 2 views 12/31/2019 FINDINGS: There are mild airspace opacities in left mid and lower lung zones. No pleural effusion or pneumothorax. The heart size is normal. There is an electronic implant in left anterior chest wall. IMPRESSION: 1. Mild airspace opacities in left mid and lower lung zones, consistent with atelectasis versus pneum onia. Reviewed, dictated and finalized at location A. TER IMPRESSION: 1. Mild airspace opacities in left mid and lower lung zones, consistent with at electasis versus pneumonia.
--- NOTE | 2020-05-05 12:02 | ED.FEVER ---
HPI - Fever General Chief Complaint: Recheck/Abnormal Lab/Rx Stated Complaint: White blood count high Time Seen by Provider: 05/05/20 12:02 Source: patient Mode of arrival: ambulatory Limitations: no limitations History of Present Illness HPI Narrative: 75-year-old man with a history of asthma comes in today complaining of Fever, cough, congestion and rhinorrhea that has been present for the last week. Patient states that his doctor started him on an antibiotic (doxycycline) and he does not seem to be getting any better. He [place] [id number] so he was instructed to come to the emergency department. Patient states his cough is nonproductive and he has not used his rescue inhaler for last 24 hours. Today he had a negative influenza and rapid SARs test. He denies syncope, vomiting, diarrhea, chest pain, abdominal pain, dysuria or hematuria. MD elicited complaint: fever Pertinent past history: diabetes Onset (ago): day(s) (6) Exacerbating factors: nothing Relieving factors: nothing Associated symptoms: rhinorrhea, nasal congestion, cough and shortness of breath Related Data Home Medications Medication Instructions Recorded Confirmed Centrum Silver Men 1 tablet PO DAILY 07/05/19 05/05/20 Farxiga 5 mg PO DAILY 07/05/19 05/05/20 Qvar RediHaler 2 inh INHALATION Q12H 07/05/19 05/05/20 albuterol sulfate 2.5 mg INHALATION Q4H PRN 07/05/19 05/05/20 albuterol sulfate [ProAir HFA] 2 puff INHALATION QID PRN 07/05/19 05/05/20 azelastine 2 spray INTRANASAL BID 07/05/19 05/05/20 glimepiride 4 mg PO DAILY 07/05/19 05/05/20 magnesium 400 mg PO DAILY 07/05/19 05/05/20 simvastatin 5 mg PO HS 07/05/19 05/05/20 terazosin 10 mg PO HS 07/05/19 05/05/20 zafirlukast 20 mg PO Q12H 07/05/19 05/05/20 Lacto.acidophilus-Bif.animalis 1 cap PO DAILY 05/05/20 05/05/20 [Daily Probiotic] apixaban [Eliquis] 5 mg PO BID 05/05/20 05/05/20 benralizumab [Fasenra] 30 mg SUBCUT ONCE 05/05/20 05/05/20 chlorthalidone 25 mg PO DAILY 05/05/20 05/05/20 fexofenadine 180 mg PO DAILY 05/05/20 05/05/20 fluticasone propionate 1 spray INTRANASAL BID 05/05/20 05/05/20 nxlpotiebnc-yaayvqvci-dqivbdck 100 ea INHALATION DAILY 05/05/20 05/05/20 [Trelegy Ellipta] hydroxychloroquine 200 mg PO BID 05/05/20 05/05/20 potassium chloride [Klor-Con M20] 20 meq PO DAILY 05/05/20 05/05/20 Allergies Allergy/AdvReac Type Severity Reaction Status Date / Time losartan AdvReac Dizziness Verified 07/05/19 12:57 metformin [From Aprumet] AdvReac Abdominal Verified 07/05/19 12:57 Pain sitagliptin [From Aprumet] AdvReac Abdominal Verified 07/05/19 12:57 Pain theophylline AdvReac Abdominal Verified 07/05/19 12:57 Pain Review of Systems Constitutional: Constitutional: Denies chills, Reports fatigue and Reports fever(s) Eyes: Eyes: Denies change in vision and Denies photophobia ENT: Denies dysphagia, Denies nasal congestion and Denies sore throat Cardiovascular: Cardiovascular: Denies chest pain and Denies radiating jaw, neck or arm pain Respiratory: Respiratory: Reports cough, Reports dyspnea and Reports wheezing Gastrointestinal: Gastrointestinal: Denies abdominal pain, Denies diarrhea, Denies nausea and Denies vomiting Genitourinary: Genitourinary: Denies hematuria, Denies dysuria and Denies urinary frequency Musculoskeletal: Musculoskeletal: Denies back pain, Denies arthralgias and Denies joint swelling Integumentary/Breasts: Skin/Breast: Denies pruritus, Denies erythema and Denies rash Neurologic: Denies vertigo, Denies dizziness and Denies syncope Hematologic/Lymphatic: Hematologic/Lymphatic: Denies easy bleeding and Denies easy bruising Allergic/Immunologic: Allergic/Immunologic: Denies lip swelling and Denies throat swelling PMFSH Past Medical History Medical History Asthma HLD (hyperlipidemia) HTN (hypertension) Rheumatoid arthritis Type 2 diabetes melli
[2020-05-05 12:28] LABS: Influenza Control Valid (Valid)
[2020-05-05 13:11] LABS: Lactic Acid Reflex 1.6 mmol/L (0.4-2.0)
== END 2020-05-05 13:54 | disposition home or self-care (01) ==
PROVIDERS: Emergency Provider Emergency Medicine; PCP Internal Medicine
DX: J40 Bronchitis, not specified as acute or chronic (principal)
CPT/HCPCS: 36415; 71046; 83605; 87040; 87804; 99283

== ENCOUNTER → 2020-05-14 11:46 | Outpatient (CLI) | payer OTHER, SELFPAY ==
--- NOTE | ~2020-05-14 | CT_ITS ---
EXAMINATION: CT diagnostic chest w con DATE: 05/14/2020 12:09 INDICATION: Cough and shortness of breath, pneumonia TECHNIQUE: Transaxial computed tomographic images of the chest were obtained after the administration of 75 cc of Omnipaque 350 intravenous contrast. The dose-length product (DLP) was 300.22 mGy-cm. Ite rative reconstruction was used. COMPARISON: 12/10/2019 FINDINGS: There are patchy peripheral groundglass and airspace opacities throughout all lung zones wh ich are new since the relatively recent CT comparison. There are trace pleural effusions. No pneumoth orax is identified. No pathologically enlarged thoracic lymph nodes are identified. The heart size is normal. A cardiac loop recorder is implanted in the left anterior chest wall. There is a 12 mm cyst of the left hepatic lobe. Calcified coronary artery atherosclerosis is noted. IMPRESSION: 1. Patchy peripheral groundglass and airspace opacities throughout all lung zones, likely atypical pn eumonia. Reviewed, dictated and finalized at location A. 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 Patchy peripheral groundglass and airspace opacities throughout all lung zon es, likely atypical pneumonia.
[2020-05-14 12:01] LABS: Estimated Glomerular Filt Rate > 60
== END ==
PROVIDERS: Visit Provider Internal Medicine
DX: J18.9 Pneumonia, unspecified organism (principal); R92.8 Other abnormal and inconclusive findings on diagnostic imaging of breast
CPT/HCPCS: 71260; Q9967

== ENCOUNTER 2020-05-17 12:59 | Outpatient (CLI) | payer OTHER, SELFPAY ==
[2020-05-17 13:17] LABS: Basophils Absolute Auto 0.04 K/mm3 (0.00-0.10); Basophils Percent Auto 0.2 % (0.0-1.0); Hemoglobin 14.8 g/dL (12.4-15.3); Immature Granulocyte Absolute 0.24 K/mm3 (0.00-0.00); Immature Granulocyte Percent A 1.2 % (0.0-0.0); Lymphocytes Absolute Auto 0.99 K/mm3 (1.10-4.50); Mean Corpuscular HGB Conc 32.2 g/dL (32.0-36.0); Mean Corpuscular Hemoglobin 29.2 pg (27.0-31.0); Mean Corpuscular Volume 90.7 fL (78.0-102.0); Mean Platelet Volume 8.7 fl (8.7-11.0); Monocytes Absolute Auto 1.48 K/mm3 (0.10-0.90); Monocytes Percent Auto 7.4 % (2.0-11.0); Neutrophils Absolute Auto 17.2 K/mm3 (1.7-7.2); Neutrophils Percent Auto 86.2 % (50.0-70.0); Platelet Count Result 305 K/mm3 (150-420); Red Blood Count 5.07 M/mm3 (4.70-6.10); Red Cell Distribution Width 12.7 % (11.6-14.4); White Blood Count 19.9 K/mm3 (4.8-10.8)
[2020-05-17 13:48] LABS: Alanine Aminotransferase 38 U/L (16-63); Albumin Level 2.9 g/dL (3.4-5.0); Alkaline Phosphatase 90 U/L (46-116); Anion Gap 9 mmol/L (8-16); Aspartate Amino Transferase 16 U/L (15-37); Bilirubin,Total 0.3 mg/dL (0.00-1.00); Blood Urea Nitrogen 22 mg/dL (7-18); CRP 2.7 mg/dL (0.0-0.9); Calcium 8.4 mg/dL (8.5-10.1); Carbon Dioxide 29 mmol/L (21-32); Chloride 99 mmol/L (98-108); Estimated Glomerular Filt Rate > 60; Glucose 289 mg/dL (70-99); Osmolality Calculated 298 mOsm/kg (285-295); Potassium 3.7 mmol/L (3.5-5.1); Sodium 137 mmol/L (136-145); Total Protein 6.6 g/dL (6.4-8.2)
[2020-05-19 19:28] LABS: Legionella pneumophila Ag Ur Not Detected (Not Detected)
== END 2020-05-17 13:00 | disposition home or self-care (01) ==
PROVIDERS: PCP Internal Medicine; Visit Provider Internal Medicine
DX: J18.9 Pneumonia, unspecified organism (principal); D72.829 Elevated white blood cell count, unspecified
CPT/HCPCS: 36415; 80053; 85025; 86140; 86738; 87449; 88184; 88185; 88189

== ENCOUNTER 2020-05-18 09:47 | Outpatient (CLI) | payer OTHER, SELFPAY ==
[2020-05-18 10:05] VITALS: PULSE 98; O2SAT 96
[2020-05-18 10:07] VITALS: PULSE 110; O2SAT 92
--- NOTE | 2020-05-18 10:41 | RCSIXMIN ---
Six Minute Walk RC: Six Minute Walk Start: 05/18/20 10:31 Freq: Status: Active Protocol: Activity Type Activity Date Activity User E-Sign Co-Sign Detail Recorded Client Recorded Date Recorded By Document 05/18/20 10:05 AURA [id number] 05/18/20 10:38 AURA Document 05/18/20 10:07 AURA [id number] 05/18/20 10:38 AURA 05/18/20 05/18/20 10:05 10:07 Six Minute Walk Test Phase Resting Exercise Oxygen Delivery Room Air Room Air Pulse Oximetry (90-100 %) 96 92 Pulse Rate (60-100 beats/min) 98 110 H Activity Tolerance Excellent Rating of Perceived Dyspnea (PD) +2 Mild, Some Difficulty, Noticeable to the Observer Rate of Perceived Exertion (PE) 12 Ambulation Distance (feet) 900 Six Minute Walk Comments well tolerated walk for 6 minutes,on room air, unassisted, no stops, occasional dry non-productive cough. Charge Six Minute Walk
== END 2020-05-18 09:48 | disposition home or self-care (01) ==
LOC: CHSCARD 09:49
PROVIDERS: PCP Internal Medicine; Visit Provider Internal Medicine
DX: J96.91 Respiratory failure, unspecified with hypoxia (principal)
CPT/HCPCS: 94618

== ENCOUNTER 2020-05-26 11:27 | Outpatient (CLI) | payer OTHER, SELFPAY ==
[2020-05-26 11:37] LABS: Basophils Absolute Auto 0.02 K/mm3 (0.00-0.10); Basophils Percent Auto 0.1 % (0.0-1.0); Hematocrit 47.4 % (37.0-46.0); Hemoglobin 15.2 g/dL (12.4-15.3); Immature Granulocyte Absolute 0.12 K/mm3 (0.00-0.00); Immature Granulocyte Percent A 0.8 % (0.0-0.0); Lymphocytes Absolute Auto 1.35 K/mm3 (1.10-4.50); Lymphocytes Percent Auto 8.5 % (18.0-42.0); Mean Corpuscular HGB Conc 32.1 g/dL (32.0-36.0); Mean Corpuscular Hemoglobin 29.4 pg (27.0-31.0); Mean Corpuscular Volume 91.7 fL (78.0-102.0); Mean Platelet Volume 8.8 fl (8.7-11.0); Monocytes Absolute Auto 1.36 K/mm3 (0.10-0.90); Monocytes Percent Auto 8.5 % (2.0-11.0); Neutrophils Absolute Auto 13.1 K/mm3 (1.7-7.2); Neutrophils Percent Auto 82.1 % (50.0-70.0); Platelet Count Result 206 K/mm3 (150-420); Red Blood Count 5.17 M/mm3 (4.70-6.10); Red Cell Distribution Width 12.9 % (11.6-14.4); White Blood Count 15.9 K/mm3 (4.8-10.8)
[2020-05-26 12:27] LABS: Alanine Aminotransferase 28 U/L (16-63); Albumin Level 3.3 g/dL (3.4-5.0); Alkaline Phosphatase 80 U/L (46-116); Anion Gap 7 mmol/L (8-16); Aspartate Amino Transferase 13 U/L (15-37); Bilirubin,Total 0.3 mg/dL (0.00-1.00); Blood Urea Nitrogen 17 mg/dL (7-18); Calcium 8.9 mg/dL (8.5-10.1); Carbon Dioxide 33 mmol/L (21-32); Chloride 100 mmol/L (98-108); Estimated Glomerular Filt Rate > 60; Glucose 190 mg/dL (70-99); Osmolality Calculated 296 mOsm/kg (285-295); Potassium 4.2 mmol/L (3.5-5.1); Sodium 140 mmol/L (136-145); Total Protein 7.1 g/dL (6.4-8.2)
== END 2020-05-26 11:28 | disposition home or self-care (01) ==
PROVIDERS: PCP Internal Medicine; Visit Provider Internal Medicine
DX: J18.9 Pneumonia, unspecified organism (principal)
CPT/HCPCS: 36415; 80053; 85025

== ENCOUNTER 2020-06-05 12:31 | Outpatient (CLI) | payer OTHER, SELFPAY | END 2020-06-05 12:32 | disposition home or self-care (01) | LOC: CHSLAB 12:33 | PROVIDERS: PCP Internal Medicine; Visit Provider Internal Medicine Pulmonary Disease | DX: J18.9 Pneumonia, unspecified organism (principal) | CPT/HCPCS: 87070; 87205 ==

== ENCOUNTER 2020-07-11 19:12 | Emergency (ER) | payer OTHER, SELFPAY ==
[2020-07-11 19:15] VITALS: BP 140/69; PULSE 80; RESP 20; O2SAT 96
[2020-07-11] MEDS: KETOROLAC (*BKC) 60 MG/2 ML VIAL IM (19:30)
--- NOTE | 2020-07-11 19:30 | ED.GENADULT ---
HPI - General Adult General Chief complaint: Extremity Injury, Lower Stated complaint: hip pain Source: patient and RN notes reviewed Mode of arrival: wheelchair Limitations: no limitations History of Present Illness HPI narrative: patient states he has rheumatoid arthritis and his left hip has been causing a lot of pain since last evening. He took some Tylenol twice and it did not seem to help. He also took a pain pill that did not help either. He denies any recent trauma. MD complaint: Left hip pain Onset (ago): day(s) (1) Location: left and lower extremity (hip) Radiation: non-radiation Severity: severe Quality: aching and dull Pain Consistency: constant Relieving factors: none Exacerbating factors: movement Associated symptoms: denies other symptoms Treatments prior to arrival: other (Tylenol) Related Data Home Medications Medication Instructions Recorded Confirmed Centrum Silver Men 1 tablet PO DAILY 07/05/19 05/05/20 Farxiga 5 mg PO DAILY 07/05/19 05/05/20 albuterol sulfate 2.5 mg INHALATION Q4H PRN 07/05/19 05/05/20 albuterol sulfate [ProAir HFA] 2 puff INHALATION QID PRN 07/05/19 05/05/20 azelastine 2 spray INTRANASAL BID 07/05/19 05/05/20 glimepiride 4 mg PO DAILY 07/05/19 05/05/20 magnesium 400 mg PO DAILY 07/05/19 05/05/20 simvastatin 5 mg PO HS 07/05/19 05/05/20 terazosin 10 mg PO HS 07/05/19 05/05/20 Lacto.acidophilus-Bif.animalis 1 cap PO DAILY 05/05/20 05/05/20 [Daily Probiotic] apixaban [Eliquis] 5 mg PO BID 05/05/20 05/05/20 benralizumab [Fasenra] 30 mg SUBCUT ONCE 05/05/20 05/05/20 chlorthalidone 25 mg PO DAILY 05/05/20 05/05/20 fexofenadine 180 mg PO DAILY 05/05/20 05/05/20 fluticasone propionate 1 spray INTRANASAL BID 05/05/20 05/05/20 hydroxychloroquine 200 mg PO BID 05/05/20 05/05/20 potassium chloride [Klor-Con M20] 20 meq PO DAILY 05/05/20 05/05/20 arformoterol [Brovana] 15 mcg INHALATION BID 07/11/20 07/11/20 budesonide 0.5 mg INHALATION BID 07/11/20 07/11/20 cyclobenzaprine 10 mg PO TID 07/11/20 07/11/20 metoprolol succinate 100 mg PO DAILY 07/11/20 07/11/20 prednisone 5 mg PO DAILY 07/11/20 07/11/20 Allergies Allergy/AdvReac Type Severity Reaction Status Date / Time losartan AdvReac Dizziness Verified 07/05/19 12:57 metformin [From Aprumet] AdvReac Abdominal Verified 07/05/19 12:57 Pain sitagliptin [From Aprumet] AdvReac Abdominal Verified 07/05/19 12:57 Pain theophylline AdvReac Abdominal Verified 07/05/19 12:57 Pain Review of Systems Review of Systems: All systems reviewed & are unremarkable except as noted in HPI and below PMFSH Past Medical History Medical History (Updated 07/11/20 @ 20:14 by Jose Dubon MD) Asthma HLD (hyperlipidemia) HTN (hypertension) Paroxysmal atrial fibrillation Rheumatoid arthritis Type 2 diabetes mellitus Social History Social History Smoking status: Never smoker Alcohol intake: never Substance use: never Gender identity (if verbalized by the patient): Male Spiritual care concerns: No Agree to blood products: Yes Exam Const: General: healthy appearing and no acute distress Nutritional Appearance: well nourished and obese centrally obese Orientation/consciousness: patient oriented x3 HENMT: Head: normal to inspection Ears: external ears normal Eyes: Conjunctivae: conjunctivae normal Pupils: Equal, round and reactive pupils present EOM: EOMs intact bilaterally Neck: Neck: normal visual inspection Resp: Effort & Inspection: normal respiratory effort Auscultation: crackles bilateral at the base Cardio: Rate: regular rate Rhythm: regular rhythm GI: GI Palp: Yes Soft to palpation, No Tenderness to palpation present (GI), No Guarding due to palpation present (GI) and No Rebound tenderness present Auscultation: normal bowel sounds Back/Spine/Pelvis: Cervical Spine: cervical ROM normal Thoracic/Lumbar Spine: thoraco-lumbar ROM normal Skin: Gen
[2020-07-11 20:33] VITALS: BP 140/69; PULSE 84; RESP 20; TEMP 36.8; O2SAT 97
== END 2020-07-11 20:34 | disposition home or self-care (01) ==
PROVIDERS: Emergency Provider Emergency Medicine; PCP Internal Medicine
DX: M25.552 Pain in left hip (principal); M06.9 Rheumatoid arthritis, unspecified
CPT/HCPCS: 96372; 99283; J1885

== ENCOUNTER 2020-09-10 15:19 | Outpatient (CLI) | payer OTHER, SELFPAY ==
[2020-09-10 15:31] LABS: Basophils Absolute Auto 0.06 K/mm3 (0.00-0.10); Basophils Percent Auto 0.6 % (0.0-1.0); Eosinophils Absolute Auto 0.06 K/mm3 (0.02-0.50); Eosinophils Percent Auto 0.6 % (1.0-6.0); Hematocrit 47.4 % (37.0-46.0); Hemoglobin 15.9 g/dL (12.4-15.3); Immature Granulocyte Absolute 0.08 K/mm3 (0.00-0.00); Immature Granulocyte Percent A 0.8 % (0.0-0.0); Lymphocytes Absolute Auto 0.97 K/mm3 (1.10-4.50); Lymphocytes Percent Auto 9.7 % (18.0-42.0); Mean Corpuscular HGB Conc 33.5 g/dL (32.0-36.0); Mean Corpuscular Hemoglobin 29.7 pg (27.0-31.0); Mean Corpuscular Volume 88.6 fL (78.0-102.0); Mean Platelet Volume 8.7 fl (8.7-11.0); Monocytes Absolute Auto 0.54 K/mm3 (0.10-0.90); Monocytes Percent Auto 5.4 % (2.0-11.0); Neutrophils Absolute Auto 8.3 K/mm3 (1.7-7.2); Neutrophils Percent Auto 82.9 % (50.0-70.0); Platelet Count Result 242 K/mm3 (150-420); Red Blood Count 5.35 M/mm3 (4.70-6.10); Red Cell Distribution Width 12.4 % (11.6-14.4); White Blood Count 10.1 K/mm3 (4.8-10.8)
[2020-09-14 10:33] LABS: Immunoglobulin A 223 mg/dL (70-320); Immunoglobulin G 1083 mg/dL (600-1540); Immunoglobulin M 29 mg/dL (50-300)
== END 2020-09-10 15:20 | disposition home or self-care (01) ==
LOC: CHSLAB 15:21
PROVIDERS: PCP Internal Medicine; Visit Provider Internal Medicine Hematology & Oncology
DX: D72.829 Elevated white blood cell count, unspecified (principal)
CPT/HCPCS: 36415; 82784; 85025

== ENCOUNTER → 2020-11-11 10:40 | Outpatient (CLI) | payer OTHER, SELFPAY ==
--- NOTE | ~2020-11-11 | CT_ITS ---
EXAMINATION: CT chest high resolution wo wa DATE: 11/11/2020 11:07 INDICATION: Rheumatoid arthritis, history of pneumonia TECHNIQUE: Computed tomography (CT) of the chest was performed without intravenous contrast. The dose -length product (DLP) was 343.31 mGy-cm. 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 COMPARISON: 05/14/2020, 07/04/2019 FINDINGS: There is been essentially complete resolution of the previously described peripheral ground glass and airspace opacities, consistent with resolved pneumonia. No acute airspace opacities are rachel ntified. There is no pleural effusion or pneumothorax. Mild emphysema is noted. A cardiac monitoring device is implanted in the left anterior chest wall. A 5 mm nodule of the left upper lobe on image 49 is stable and most consistent with old granulomatous disease given greater than 12 months of stabili ty. No pathologically enlarged thoracic lymph nodes are identified. The heart size is normal. Calcifi ed coronary artery atherosclerosis is noted. There is a 1.5 cm cyst of the liver. IMPRESSION: 1. Near complete resolution of the previously described groundglass and airspace opacities, consisten t with resolved pneumonia. Reviewed, dictated and finalized at location B. IMPRESSION: 1. Near complete resolution of the previously described groundglass and airspac e opacities, consistent with resolved pneumonia.
== END ==
PROVIDERS: PCP Internal Medicine; Visit Provider Internal Medicine Pulmonary Disease
DX: M06.9 Rheumatoid arthritis, unspecified (principal); K76.89 Other specified diseases of liver
CPT/HCPCS: 71250

== ENCOUNTER 2021-03-22 09:41 | Outpatient (CLI) | payer OTHER, SELFPAY ==
[2021-03-22 09:52] LABS: Hematocrit 46.5 % (37.0-46.0); Hemoglobin 15.4 g/dL (12.4-15.3); Mean Corpuscular HGB Conc 33.1 g/dL (32.0-36.0); Mean Corpuscular Hemoglobin 29.8 pg (27.0-31.0); Mean Corpuscular Volume 90.1 fL (78.0-102.0); Mean Platelet Volume 8.9 fl (8.7-11.0); Platelet Count Result 166 K/mm3 (150-420); Red Blood Count 5.16 M/mm3 (4.70-6.10); Red Cell Distribution Width 12.4 % (11.6-14.4); White Blood Count 8.4 K/mm3 (4.8-10.8)
[2021-03-22 10:30] LABS: Alanine Aminotransferase 59 U/L (16-63); Albumin Level 3.9 g/dL (3.4-5.0); Alkaline Phosphatase 67 U/L (46-116); Anion Gap 9 mmol/L (8-16); Aspartate Amino Transferase 15 U/L (15-37); Bilirubin,Total 0.5 mg/dL (0.00-1.00); Blood Urea Nitrogen 19 mg/dL (7-18); Calcium 8.4 mg/dL (8.5-10.1); Carbon Dioxide 31 mmol/L (21-32); Chloride 102 mmol/L (98-108); Estimated Glomerular Filt Rate > 60; Glucose 192 mg/dL (70-99); Osmolality Calculated 301 mOsm/kg (285-295); Potassium 3.8 mmol/L (3.5-5.1); Sodium 142 mmol/L (136-145); Total Protein 6.7 g/dL (6.4-8.2)
[2021-03-24 21:13] LABS: Immunoglobulin A 181 mg/dL (70-320); Immunoglobulin G 779 mg/dL (600-1540); Immunoglobulin M 23 mg/dL (50-300)
== END 2021-03-22 09:42 | disposition home or self-care (01) ==
LOC: CHSLAB 09:43
PROVIDERS: PCP Internal Medicine; Visit Provider Internal Medicine Hematology & Oncology
DX: D80.1 Nonfamilial hypogammaglobulinemia (principal)
CPT/HCPCS: 36415; 80053; 82784; 85027

== ENCOUNTER 2023-11-22 12:31 | Emergency (ER) | payer OTHER, SELFPAY ==
--- NOTE | ~2023-11-22 | XR_ITS ---
XR knee RT 3V Ordering provider: Jack Esparza MD History: . pain after hearing pop . Comparison: None. FINDINGS: BONES: No acute fracture or dislocation. JOINT SPACES: Normal. SOFT TISSUES: Normal. IMPRESSION: No acute osseous abnormality right knee. Reviewed, dictated and finalized at location A.
[2023-11-22 12:34] VITALS: BP 150/76; PULSE 83; RESP 16; TEMP 36.4; O2SAT 96
--- NOTE | 2023-11-22 12:42 | ED.LOWEXIN ---
HPI - Extremity Injury (Lower) General Chief Complaint: Extremity Injury, Lower Stated Complaint: right knee pain Time Seen by Provider: 11/22/23 12:39 Source: patient Mode of arrival: ambulatory Limitations: no limitations History of Present Illness HPI Narrative: 78 year old male presents to the Emergency Department complaining of right knee pain. Patient states he was going down some steps 3 days ago and felt pain and pop to anterior knee / inferior patellar tendon region. States when he walks he has some pain, but not with palpation. Pain to medial joint region. No feelings of instability. No numbness or tingling. No prior history of knee problems. MD complaint: other (onset of pain while walking down stairs) Onset (ago): day(s) (3 days ago) Type of Injury: other (walking down stairs) Place: home Exacerbating factors: weight bearing Context: walking Associated symptoms: snap/pop sensation Other symptoms: none Related Data Home Medications Medication Instructions Recorded Confirmed albuterol sulfate 2.5 mg/3 mL 2.5 mg inhalation Q4H PRN 07/05/19 11/22/23 (0.083 %) solution for nebulization Shortness Of Breath albuterol sulfate 90 mcg/actuation 2 puff inhalation QID PRN 07/05/19 11/22/23 aerosol inhaler (ProAir HFA) Shortness Of Breath azelastine 205.5 mcg (0.15 %) 2 spray intranasal BID 07/05/19 11/22/23 nasal spray dapagliflozin propanediol 5 mg 10 mg PO DAILY 07/05/19 10/05/21 tablet (Farxiga) magnesium 200 mg tablet 400 mg PO DAILY 07/05/19 11/22/23 [id number] 300 mcg-K 60 1 tablet PO DAILY 07/05/19 11/22/23 mcg-lycop 600 mcg-lutein 300 mcg tablet (Centrum Silver Men) simvastatin 10 mg tablet 5 mg PO HS 07/05/19 11/22/23 terazosin 10 mg capsule 10 mg PO HS 07/05/19 11/22/23 Lactobacillus 1 cap PO DAILY 05/05/20 11/22/23 acidophilus-Bifidobac.animalis 2.5 billion cell capsule (Daily Probiotic) apixaban 5 mg tablet (Eliquis) 5 mg PO BID 05/05/20 11/22/23 benralizumab 30 mg/mL subcutaneous 30 mg subcut ONCE 05/05/20 11/22/23 syringe (Fasenra) chlorthalidone 25 mg tablet 12.5 mg PO DAILY 05/05/20 11/22/23 fexofenadine 180 mg tablet 180 mg PO DAILY 05/05/20 11/22/23 fluticasone propionate 50 1 spray intranasal BID 05/05/20 11/22/23 mcg/actuation nasal spray,suspension hydroxychloroquine 200 mg tablet 200 mg PO BID 05/05/20 11/22/23 potassium chloride 20 mEq 20 meq PO DAILY 05/05/20 11/22/23 tablet,extended release(part/cryst) (Codyor-Con M) arformoterol 15 mcg/2 mL solution 15 mcg inhalation BID 07/11/20 11/22/23 for nebulization (Sharyna) budesonide 0.5 mg/2 mL suspension 0.5 mg inhalation BID 07/11/20 11/22/23 for nebulization aspirin 81 mg tablet,delayed 81 mg PO DAILY 11/22/23 11/22/23 release folic acid 1 mg tablet 1 mg PO DAILY 11/22/23 11/22/23 methotrexate sodium 2.5 mg tablet 15 mg PO WEEKLY 11/22/23 11/22/23 Allergies Allergy/AdvReac Type Severity Reaction Status Date / Time losartan AdvReac Dizziness Verified 10/05/21 13:50 metformin [From Aprumet] AdvReac Abdominal Verified 10/05/21 13:50 Pain sitagliptin [From Aprumet] AdvReac Abdominal Verified 10/05/21 13:50 Pain theophylline AdvReac Abdominal Verified 10/05/21 13:50 Pain Review of Systems Review of Systems: All systems reviewed & are unremarkable except as noted in HPI and below Constitutional: Constitutional: Reports as per HPI and Reports no additional constitutional complaints Eyes: Eyes: Reports as per HPI ENT: Reports system reviewed and no additional complaints, except as documented Cardiovascular: Cardiovascular: Reports as per HPI Respiratory: Respiratory: Reports as per HPI Gastrointestinal: Gastrointestinal: Reports as per HPI Genitourinary: Genitourinary: Reports no additional male genitourinary complaints Musculoskeletal: Musculoskeletal: Reports no additional musculoskeletal complaints and Reports arthralgias (right knee pain with walking) Integumentary
== END 2023-11-22 13:41 | disposition home or self-care (01) ==
PROVIDERS: Emergency Provider Emergency Medicine; PCP Internal Medicine
DX: S89.91XA Unspecified injury of right lower leg, initial encounter (principal); E78.5 Hyperlipidemia, unspecified; E11.9 Type 2 diabetes mellitus without complications; I48.0 Paroxysmal atrial fibrillation; M06.9 Rheumatoid arthritis, unspecified; Z79.899 Other long term (current) drug therapy; Z79.82 Long term (current) use of aspirin; X50.0XXA Overexertion from strenuous movement or load, initial encounter
CPT/HCPCS: 73562; 99283; L1830

== ENCOUNTER 2024-10-14 16:22 | Emergency (ER) | payer OTHER, SELFPAY ==
--- NOTE | ~2024-10-14 | XR_ITS ---
HISTORY: Leg pain after fall COMPARISON: None TECHNIQUE: 2 views of the tibia and fibula were performed FINDINGS: Redemonstration of cortical irregularity within the medial malleolus. No additional abnormality is appreciated. Soft tissue swelling of the medial malleolus is redemonstrated. Vascular calcifications are also noted. No radiopaque foreign body. IMPRESSION: Redemonstration of cortical irregularity within the medial malleolus with overlying soft tissue swelling. Reviewed, dictated and finalized at location A. IMPRESSION: Redemonstration of cortical irregularity within the medial malleol us with overlying soft tissue swelling.
--- NOTE | ~2024-10-14 | XR_ITS ---
HISTORY: Medial ankle pain after fall COMPARISON: None TECHNIQUE: 3 views of the left ankle were performed FINDINGS: Cortical irregularity along the medial malleolus for which acute fracture is suspected. Moderate soft tissue swelling. The ankle mortise is preserved. Bone mineralization is age-appropriate. IMPRESSION: Acute medial malleolus fracture, as detailed above. Reviewed, dictated and finalized at location A.
[2024-10-14 16:24] VITALS: BP 153/88; PULSE 86; RESP 20; TEMP 36.5; O2SAT 96
[2024-10-14] MEDS: ACETAMINOPHEN 500 MG TABLET 1000 MG PO (16:53)
--- NOTE | 2024-10-14 17:11 | ED.FALL ---
HPI - Fall General Chief Complaint: Fall Stated Complaint: fell off ladder, has body pain Time Seen by Provider: 10/14/24 16:24 Source: patient Mode of arrival: ambulatory Limitations: no limitations History of Present Illness HPI Narrative: This is a 79-year-old male, with history of AFib on Eliquis and diabetes, who presents to the emergency department after a fall from a ladder. The patient states he was climbing down from the roof, approximately 7 ft from the ground, when the ladder twisted. He fell to the left side landing on the left ankle, left elbow and trunk. He denies head injury or loss of consciousness. He complains of moderate left ankle pain and minimal left elbow pain. He was able to ambulate after the fall. He has no other complaints at this time. Related Data Home Medications ?Medication ?Instructions ?Recorded ?Confirmed ?Last Taken ?Type albuterol sulfate 2.5 mg/3 mL 2.5 mg inhalation Q4H PRN 07/05/19 11/22/23 Unknown History (0.083 %) solution for nebulization Shortness Of Breath albuterol sulfate 90 mcg/actuation 2 puff inhalation QID PRN 07/05/19 11/22/23 Unknown History aerosol inhaler (ProAir HFA) Shortness Of Breath azelastine 205.5 mcg (0.15 %) 2 spray intranasal BID 07/05/19 11/22/23 Unknown History nasal spray dapagliflozin propanediol 5 mg 10 mg PO DAILY 07/05/19 10/05/21 Unknown History tablet (Farxiga) magnesium 200 mg tablet 400 mg PO DAILY 07/05/19 11/22/23 Unknown History [id number]-ni-[id number] 300 mcg-K 60 1 tablet PO DAILY 07/05/19 11/22/23 Unknown History mcg-lycop 600 mcg-lutein 300 mcg tablet (Centrum Silver Men) simvastatin 10 mg tablet 5 mg PO HS 07/05/19 11/22/23 Unknown History terazosin 10 mg capsule 10 mg PO HS 07/05/19 11/22/23 Unknown History Lactobacillus 1 cap PO DAILY 05/05/20 11/22/23 Unknown History acidophilus-Bifidobac.animalis 2.5 billion cell capsule (Daily Probiotic) apixaban 5 mg tablet (Eliquis) 5 mg PO BID 05/05/20 11/22/23 Unknown History benralizumab 30 mg/mL subcutaneous 30 mg subcut ONCE 05/05/20 11/22/23 Unknown History syringe (Fasenra) chlorthalidone 25 mg tablet 12.5 mg PO DAILY 05/05/20 11/22/23 Unknown History fexofenadine 180 mg tablet 180 mg PO DAILY 05/05/20 11/22/23 Unknown History fluticasone propionate 50 1 spray intranasal BID 05/05/20 11/22/23 Unknown History mcg/actuation nasal spray,suspension hydroxychloroquine 200 mg tablet 200 mg PO BID 05/05/20 11/22/23 Unknown History potassium chloride 20 mEq 20 meq PO DAILY 05/05/20 11/22/23 Unknown History tablet,extended release(part/cryst) (Klor-Con M) arformoterol 15 mcg/2 mL solution 15 mcg inhalation BID 07/11/20 11/22/23 Unknown History for nebulization (Sharyna) budesonide 0.5 mg/2 mL suspension 0.5 mg inhalation BID 07/11/20 11/22/23 Unknown History for nebulization aspirin 81 mg tablet,delayed 81 mg PO DAILY 11/22/23 11/22/23 Unknown History release folic acid 1 mg tablet 1 mg PO DAILY 11/22/23 11/22/23 Unknown History methotrexate sodium 2.5 mg tablet 15 mg PO WEEKLY 11/22/23 11/22/23 Unknown History Allergies Allergy/AdvReac Type Severity Reaction Status Date / Time losartan AdvReac Dizziness Verified 10/14/24 16:37 metformin (From Aprumet) AdvReac Abdominal Verified 10/14/24 16:37 Pain sitagliptin (From Aprumet) AdvReac Abdominal Verified 10/14/24 16:37 Pain theophylline AdvReac Abdominal Verified 10/14/24 16:37 Pain Review of Systems Review of Systems: All systems reviewed & are unremarkable except as noted in HPI and below ( HPI) [facility] Past Medical History Medical History Paroxysmal atrial fibrillation HTN (hypertension) HLD (hyperlipidemia) Asthma Type 2 diabetes mellitus Rheumatoid arthritis Social History Social History Smoking status: Never smoker Alcohol intake: never Substance use: never Living arrangements: with family Gender identity (if verbalized by the patient): Male Spiritual care concerns: No Agree to blood products: Yes Exam Narrative: GENERAL: Well-developed, well-nourished, and in no acute distress. HEAD: Normocephalic, atraumatic. EYES: PERRLA and EOMI. NECK: Supple. No midline spine tenderness to palpation, no step-off or crepitus CHEST: Clear to auscultation. No respiratory distress. No wheezes rales or rhonchi HEART: Regular rate and rhythm. No murmur heard. Normal peripheral pulses. ABDOMEN: Soft, nontender, nondistended, normal active bowel sounds. EXTREMITIES: There is mild swelling without ecchymosis or erythema noted of the left ankle, greater at the medial aspect. There is mild tenderness to palpation at the medial malleolus without step-off or crepitus. there is a 10 x 3 cm area ecchymosis to the lateral aspect of the left elbow with tenderness or step-off to palpation. Somewhat limited range of motion of the left ankle due to pain. Normal range of motion of all other extremities. No edema. SKIN: Warm, dry, no rash. NEURO: Alert and oriented x3. No focal deficit. Moving all 4 limbs spontaneously PSYCH: Normal mood and affect. Course Course Emergency Course: 17:10 - X-ray of the left ankle shows a medial malleolus fracture. Will place the patient in a posterior leg splint pending tib-fib films. 18:30 - The patient was placed in a posterior short-leg splint with stirrups. Neurovascular exam after splint placement normal. Will discharge with recommendation for orthopedic surgery follow-up. I discussed the findings and recommendations with the patient. Discussed return and emergency precautions including signs/symptoms of septic arthritis and neurovascular compromise. The patient voiced understanding and agreement with the plan. All questions answered to his satisfaction. Vital Signs Vital signs: Vital Signs Temperature 97.7 F 10/14/24 16:24 Pulse Rate 86 10/14/24 16:24 Respiratory Rate 20 10/14/24 16:24 Blood Pressure 153/88 H 10/14/24 16:24 Pulse Oximetry 96 10/14/24 16:24 Oxygen Delivery Room Air 10/14/24 16:24 Temperature 98.7 F 10/14/24 18:40 Pulse Rate 62 10/14/24 18:40 Respiratory Rate 16 10/14/24 18:40 Blood Pressure 142/86 H 10/14/24 18:40 Pulse Oximetry 99 10/14/24 18:40 Oxygen Delivery Room Air 10/14/24 18:40 Procedures Orthopedic Splinting/Casting Injury #1: Splinting/Casting Date: 10/14/24 Splinting/Casting Time: 18:20 Side: left Lower Extremity Injury Location: ankle Lower Extremity Immobilizer: posterior splint and stirrup splint Splint: customized in ED Pre-Formed: airgel ankle stirrup Pre-Procedure Neuro Vascular Exam: normal Post-Procedure Neuro Vascular Exam: normal Other Orthopedic Equipment: crutches MDM - Fall MDM Narrative Medical decision making narrative: Plan: Imaging, pain control, reassess Differential Diagnosis Differential diagnosis: Likely other ( ankle fracture, and dislocation, tibia fracture, fibular fracture, contusion, other) Discharge Plan Discharge Clinical Impression: Acute left ankle pain Fracture of ankle, medial malleolus, left, closed Qualifiers: Encounter type: initial encounter Fracture alignment: nondisplaced Qualified Code(s): S82.55XA - Nondisplaced fracture of medial malleolus of left tibia, initial encounter for closed fracture Traumatic ecchymosis of left elbow Qualifiers: Encounter type: initial encounter Qualified Code(s): S50.02XA - Contusion of left elbow, initial encounter Patient Disposition: Home Condition: Stable Instructions: Antibiotic Form, Ankle Fracture (ED), Abrasion (ED) Additional Instructions: You were seen in the emergency department. An x-ray left ankle showed a nondisplaced fracture. your placed in a splint. I recommend following up with a an orthopedic surgeon in 1-2 weeks. If you develop rapidly spreading redness with increasing pain and fevers, the ankle appears blue/cold, or if you have other emergent concerns for life, limb, or eyesight, return to the emergency department. Patient Language: Albanian Prescriptions: New hydrocodone-acetaminophen 5-325 mg tablet 1 tablet PO Q12H PRN (Reason: pain, severe) Qty: 12 0RF No Action albuterol sulfate 2.5 mg /3 mL (0.083 %) Solution For Nebulization 2.5 mg INHALATION Q4H PRN (Reason: Shortness Of Breath) simvastatin 10 mg Tablet 5 mg PO HS albuterol sulfate [ProAir HFA] 90 mcg/actuation Hfa Aerosol Inhaler 2 puff INHALATION QID PRN (Reason: Shortness Of Breath) terazosin 10 mg Capsule 10 mg PO HS magnesium 200 mg Tablet 400 mg PO DAILY azelastine 0.15 % (205.5 mcg) [place],Non-Aerosol 2 spray INTRANASAL BID Centrum Silver Men 300-600-300 mcg Tablet 1 tablet PO DAILY dapagliflozin propanediol [Farxiga] 5 mg Tablet 10 mg PO DAILY budesonide 0.5 mg/2 mL suspension for nebulization 0.5 mg inhalation BID arformoterol [Brovana] 15 mcg/2 mL solution for nebulization 15 mcg INHALATION BID fluticasone propionate 50 mcg/actuation spray,suspension 1 spray INTRANASAL BID chlorthalidone 25 mg tablet 12.5 mg PO DAILY fexofenadine 180 mg Tablet 180 mg PO DAILY potassium chloride [Klor-Con M20] 20 mEq tablet,ER particles/crystals 20 meq PO DAILY hydroxychloroquine 200 mg tablet 200 mg PO BID Eliquis 5 mg Tablet 5 mg PO BID Daily Probiotic 2.5 billion cell Capsule 1 cap PO DAILY Fasenra 30 mg/mL Syringe 30 mg SUBCUT ONCE Rx Instructions: EVERY 2 MONTHS aspirin 81 mg tablet,delayed release (DR/EC) 81 mg PO DAILY methotrexate sodium 2.5 mg tablet 15 mg PO WEEKLY folic acid 1 mg tablet 1 mg PO DAILY hydrocodone-acetaminophen 7.5-325 mg tablet 1 tablet PO Q6H PRN (Reason: pain) Qty: 20 0RF Follow-up/Referrals: Wilfrido Jurado MD [Physician] - 2 Weeks Alex Farfan MD [Primary Care Provider] - Time of Disposition: 18:30
[2024-10-14 18:40] VITALS: BP 142/86; PULSE 62; RESP 16; TEMP 37.1; O2SAT 99
== END 2024-10-14 18:50 | disposition home or self-care (01) ==
PROVIDERS: Emergency Provider Preventive Medicine Aerospace Medicine; PCP Internal Medicine
DX: S82.55XA Nondisplaced fracture of medial malleolus of left tibia, initial encounter for closed fracture (principal); S50.02XA Contusion of left elbow, initial encounter; E11.9 Type 2 diabetes mellitus without complications; I48.0 Paroxysmal atrial fibrillation; E78.5 Hyperlipidemia, unspecified; I10 Essential (primary) hypertension; Z79.01 Long term (current) use of anticoagulants; W11.XXXA Fall on and from ladder, initial encounter
CPT/HCPCS: 29515; 73590; 73610; 99284; A9270; L4350

== ENCOUNTER 2024-10-20 08:02 | Outpatient (CLI) | payer OTHER, SELFPAY ==
--- NOTE | ~2024-10-20 | XR_ITS ---
Left ankle Technique: AP, oblique, and lateral views were obtained. Clinical History: Fracture follow-up COMPARISON: 10/14/2024 Findings: Transverse fracture of the base the medial malleolus is present, with stable alignment from prior exam. No other fracture or dislocation seen.. Ankle mortise and other visualized joint spaces are preserved. Soft tissues are otherwise unremarkable. Impression: Stable transverse fracture of the base the medial malleolus. Reviewed, dictated and finalized at location M. Impression: Stable transverse fracture of the base the medial malleolus.
== END 2024-10-20 08:03 | disposition home or self-care (01) ==
LOC: CHSIMG 08:06
PROVIDERS: PCP Internal Medicine; Visit Provider Orthopaedic Surgery
DX: S82.52XA Displaced fracture of medial malleolus of left tibia, initial encounter for closed fracture (principal)
CPT/HCPCS: 73610

== ENCOUNTER 2024-11-17 07:51 | Outpatient (CLI) | payer OTHER, SELFPAY ==
--- NOTE | ~2024-11-17 | XR_ITS ---
EXAM: XR ankle LT min 3V DATE: 11/17/2024 08:39 HISTORY: S82.52XA - Displaced fracture of medial malleolus of left... . COMPARISON: 10/20/2024. FINDINGS: Interval cast/splint removal. Redemonstration of the transverse medial malleolus fracture, in unchanged alignment. Some degree of osseous bridging is likely present although this determinatio n is difficult due to obliquity of the fracture line. Curvilinear ossifications along the anterior an d posterior margins of the tibia. Decreased soft tissue swelling. Small ankle joint effusion. Vascula r calcifications. IMPRESSION: Stable medial malleolar fracture, likely with healing change. Curvilinear bone fragments at the anterior and posterior tibia may represent old degenerative fragments, or capsular avulsions. These findings could be confirmed with CT of the ankle if clinically indicated. Reviewed, dictated and finalized at location K. IMPRESSION: Stable medial malleolar fracture, likely with healing change. Curvi linear bone fragments at the anterior and posterior tibia may represent old deg enerative fragments, or capsular avulsions. These findings could be confirmed w ith CT of the ankle if clinically indicated.
--- OUTSIDE RECORDS SUMMARY | 2024-11-17 07:58 | XMS_ITS | Encounter Summary ---
Author Organization [facility] Address [address] [place] [address] Care Team Providers Care Shrinker Name Role Phone Alex Farfan MD Primary Care Provider [phone] Mark Guzmán MD Unavailable Eber Gonzalez MD Unavailable Unavailable Deonte Ly MD Unavailable [phone] Bijan Gabriel MD Unavailable Lindsey López APRN RN IMAGING-C Unavailable Micaela Rucker MD Unavailable [phone] Encounter Details Date Type Department Care Team (Late st Contact Info) Description 01/19/2021 [facility] [address] [place] [address] Mark Guzmán MD [address] [place] [phone] Social History Tobacco Use Types Packs/Day Years Used Date Smoking Tobacco: Never Smokeless Tobacco: Never Alcohol Use Standard Drinks/Week Comments Yes 0 (1 standard drink = 0.6 oz pure alcohol) 1-2 drinks every couple of months Sex and Gender Information Value Date Recorded Sex Assigned at Not on file Legal Sex Male 3:37 PM APPRENTICE TECHNICIAN Gender Identity Male 06/10/2021 11:48 AM APPRENTICE TECHNICIAN Sexual Orientation Straight 06/10/2021 11 :48 AM APPRENTICE TECHNICIAN COVID-19 Exposure Response Date Recorded In the last month, have you been in contact with someone who was confirmed or suspected to have Coronavirus / COVID-19? No / Unsure 01/20/2021 12:18 PM CDT documented as of this encounter Functional Status * Calculated C-SSRS Risk Score (Lifetime/Recent) Answer Date of Assessment Author Status No Risk Indicated 01/20/2021 12:25 PM CDT Taurus London RN Active * [place] Suicide Severity Rating Scale (Screener/Recent Self-Report) Question Answer Date of Assessment Author Status 1. Wish to be (Past 1 Month) No 01/20/2021 12:25 PM CDT Cindy London RN Ac tive 2. Non-Specific Active Suicidal Thoughts (Past 1 Month) No 01/20/2021 12:25 PM CDT Cindy London RN Ac tive 6. Suicidal Behavior (Lifetime) No 01/20/2021 12:25 PM CDT Cindy London RN Ac tive documented as of this encounter Plan of Treatment Not on file documented as of this encounter Procedures Procedure Name Priority Date/Time Associated Diagnosis Comments AST (ABSTRACTED LAB) Routine 01/17/2021 ALBUMIN/GLOBULIN RATIO Routine 01/17/2021 GLOBULIN Routine 01/17/2021 ALT (OUTSIDE LAB) Routine 01/17/2021 HEMOGLOBIN, GLYCOSYLATED Routine 01/17/2021 BILIRUBIN TOTAL Routine 01/17/2021 ALBUMIN, SERUM Routine 01/17/2021 PROTEIN TOTAL Routine 01/17/2021 ALKALINE PHOSPHATASE Routine 01/17/2021 documented in this encounter Results * BILIRUBIN TOTAL (01/17/2021) BILIRUBIN TOTAL S/P/B 0.5 0.2 - 1.2 01/17/2021 Result [facility] Alex Farfan MD LABORATORY Final Result * ALBUMIN/GLOBULIN RATIO (01/17/2021) [facility] ALBUMIN/GLOBULI N RATIO 1.8 1.0 - 2.5 01/17/2021 Result [facility] Alex Farfan MD LABORATORY Final Result * GLOBULIN (01/17/2021) [facility] GLOBULIN 2.3 1.9 - 3.7 01/17/2021 Result [facility] Alex Farfan MD LABORATORY Final Result * ALBUMIN, SERUM (01/17/2021) [facility] ALBUMIN S/P/B 4.2 3.6 - 5.1 01/17/2021 Result [facility] Alex Farfan MD LABORATORY Final Result * PROTEIN TOTAL (01/17/2021) [facility] TOTAL PROTEIN S/P/B 6.5 6.1 - 8.1 01/17/2021 Result [facility] Alex Farfan MD LABORATORY Final Result * ALKALINE PHOSPHATASE (01/17/2021) [facility] ALKALINE PHOSPHATASE S/P/B 57 35 - 144 01/17/2021 Result [facility] Alex Farfan MD LABORATORY Final Result * ALT (OUTSIDE LAB) (01/17/2021) [facility] ALT 20 9 - 46 01/17/2021 Result [facility] Alex Farfan MD LAB-OUTSIDE/ABSTRACTED Final Re sult * AST (ABSTRACTED LAB) (01/17/2021) AST 14 10 - 35 01/17/2021 Alex Farfan MD LAB-OUTSIDE/ABSTRACTED Final Re sult * HEMOGLOBIN, GLYCOSYLATED (01/17/2021) HGB A1C 8.0 <5.7 % 01/17/2021 Alex Farfan MD LABORATORY Final Result documented in this encounter Visit Diagnoses Not on filedocumented in this encounter Care Teams Shrinker Relationship Specialty Start Date End Date Alex Farfan MD [address] [place] [phone] PCP - General INTERNAL MEDICINE 06/17/19 Mark Guzmán MD [address] [place] [phone] Consulting Physician CARDIOVASCULAR DISEASE 07/30/19 Eber Gonzalez MD [address] [place] [address] Consulting Physician CLINICAL CARDIAC ELECTROPHYSIOLOGY 10/08/19 11/12/24 Deonte Ly MD [address] [place] [address] INTERNAL MEDICINE 10/22/19 Bijan Gabriel MD [address] [place] [address] Consulting Physician INTERNAL MEDICINE 06/03/20 Lindsey López APRN, RN IMAGING-C [address] [facility] [address] [place] [address] NURSE PRACTITIONER 06/03/20 Micaela Rucker MD [address] [address] INTERVENTIONAL CARDIOLOGY 12/08/2310/22 documented as of this encounter
--- OUTSIDE RECORDS SUMMARY | 2024-11-17 07:58 | XMS_ITS | Encounter Summary ---
Author Organization [facility] Address [address] [place] [address] Care Team Providers Care Reinforcing Steel Placer Name Role Phone Alex Farfan MD Primary Care Provider [phone] Mark Guzmán MD Unavailable [phone] Eber Gonzalez MD Unavailable Unavailable Deonte Ly MD Unavailable [phone] Bijan Gabriel MD Unavailable Lindsey López APRN POWDERED SUGAR SUPERVISOR-C Unavailable Micaela Rucker MD Unavailable [phone] Encounter Details Date Type Department Care Team (Late st Contact Info) Description 10/18/2022 MyChart Message Enc [facility] [address] [place] [address] Mychart, [facility] Provider Air Quality Message Social History Tobacco Use Types Packs/Day Years Used Date Smoking Tobacco: Never Smokeless Tobacco: Never Alcohol Use Standard Drinks/Week Comments Yes 0 (1 standard drink = 0.6 oz pure alcohol) 1-2 drinks every couple of months Sex and Gender Information Value Date Recorded Sex Assigned at Not on file Legal Sex Male 3:37 PM PATIENT CARE DIRECTOR Gender Identity Male 06/10/2021 11:48 AM PATIENT CARE DIRECTOR Sexual Orientation Straight 06/10/2021 11 :48 AM PATIENT CARE DIRECTOR documented as of this encounter Plan of Treatment Not on file documented as of this encounter Visit Diagnoses Not on filedocumented in this encounter Care Teams Reinforcing Steel Placer Relationship Specialty Start Date End Date Alex Farfan MD [address] [place] [phone] PCP - General INTERNAL MEDICINE 06/17/19 Mark Guzmán MD [address] [place] [phone] Consulting Physician CARDIOVASCULAR DISEASE 07/30/19 Eber Gonzalez MD [address] [place] [address] Consulting Physician CLINICAL CARDIAC ELECTROPHYSIOLOGY 10/08/19 11/12/24 Deonte Ly MD [address] [place], [place] [address] INTERNAL MEDICINE 10/22/19 Bijan Gabriel MD [address] [place] [phone] Consulting Physician INTERNAL MEDICINE 06/03/20 Lindsey López APRN, POWDERED SUGAR SUPERVISOR-C [address] [address] NURSE PRACTITIONER 06/03/20 Micaela Rucker MD [address] [address] INTERVENTIONAL CARDIOLOGY 12/08/2310/22 documented as of this encounter
--- OUTSIDE RECORDS SUMMARY | 2024-11-17 07:58 | XMS_ITS | Data Portability ---
Author Organization [facility], [address] [place] [address] Neurology ([place]) Address [address] [place] [address] Care Team Providers Care Auto Air Conditioning Installer Name Role Phone RAJAN BATISTA Primary Care Provider Assessment Encounter Date Assessment Date Assessment LastModified by Organization Details LastModified Time 01/31/2024 01/31/2024 IMPRESSION: 1. Osteoarthritis of the knees. 2. Seropositive RA. 3. Dupuytren s contractures. PLAN: 1. Left knee arthrocentesis and intraarticular cortisone injection today. Informed consent was discussed and obtained. An explanation of the procedure was provided. The risks versus benefits of the procedure the risks and benefits of alternative procedures as well as the possible consequences of not undergoing the procedure were discussed. Patient verbalized understanding and agreed to procedure .The area of the injection was sterilized with iodine followed by alcohol swabs and area was cleaned and prepped, 22-gauge needle was used, lateral suprapatellar recess was used, and needle inserted while aspirating as we went in to avoid vascular compromise. Intra-articular administration of 40 mg of Depo-Medrol and 0.5 cc of 1% lidocaine successfully at the left knee. There is no aspirate obtained today during this procedure. 2. Continue yearly Plaquenil screening eye exams. 3. Continue current arthritic pharmacotherapeutic regimen. 4. Labs to continue every 4 months as ordered. 5. Followup visit in 4-5 months for recheck. [email or web address] Not available 02/02/2024 13:07:14 07/03/2024 07/03/2024 IMPRESSION: 1. Seropositive RA, currently well controlled. 2. Osteoarthritis. PLAN: 1. We will provide a brief prednisone taper for flares only as needed, 20 mg daily for 4 days, then taper ever 3 days by 5 mg decrements until off. 2. Continue current methotrexate and hydroxychloroquine therapy along with folic acid supplement. 3. Plaquenil screening eye exams at least once yearly. 4. We will obtain a copy of his most recent labs from 2 weeks ago from [facility]. 5. Continue laboratory monitoring every 4 months as ordered. 6. Followup visit in 6 months. [email or web address] Not available 07/03/2024 17:44:53 Plan of Treatment Reminders Order Date Submit Date Provider Last Modified By Organization Details Last Modified Time Details Appointments Establish ed Patient 15.EST 2024 10:30A M Dr. Raza Chowdhury Not available Not available Not available Lab None recorded. Referral None recorded. Procedures None recorded. Surgeries None recorded. Imaging None recorded. Medication Orders Depo-Medr ol 80 mg/mL suspensio n for injection 2023 024 [id number], [address] [place], [address], 02/01/2024 22:06:25 Patient TargetsNo targets recorded. Patient InstructionsNo instructions recorded. Reason for Referral None Reported. Results Created Date Observation Date Name Description Value Unit Range Abnormal Flag Note LastModifiedBy Organization Detail LastModifiedTime 08/16/19 25 06/29/2020 imagi ng/di agnos tic resul t No observ ation record ed. [email or web address] Not Available 10:29:45 10/27/1901/23/2020 imagi ng/di agnos tic resul t No observ ation record ed. [email or web address] Not Available 0 10/26/2024 14:52:19 10/27/19 25 02/18/2020 imagi ng/di agnos tic resul t No observ ation record ed. [email or web address] Not Available 0 10/26/2024 14:52:21 Result Notes None recorded. Problems Name Problem SNOMED Code Status Onset Date Resolution Date Notes Provider Name and Address Organization Details Recorded Time Seropositiv e rheumatoid arthritis 966082257 Active 2023 Joey Jean [facility] 08/26/202 4 08:29:40 Osteoarthri tis of left knee joint 6527817964582 09 Active 2023 Raza Chowdhury MD [address] [facility], [place], [address], [facility] 4 11:52:01 Dupuytren's disease of palm of right hand 2841406655948 9100 Active 2023 Raza Chowdhury MD [address] [facility], [place], [address], [facility] 4 11:52:25 Dupuytren's disease of palm of left hand 0268773289388 9104 Active 2023 Raza Chowdhury MD [address] , [place], [address], [facility] 4 11:52:32 Problem Notes None recorded. Procedures Surgical History Date Name Laterality Status Provider Name and Address Organization Details Recorded Time Colonoscopy with biopsy completed Not Available Health Note 06/26/2024 12:41:53 Imaging Results None recorded. Procedure Notes None recorded. Medical Equipment None Reported. Allergies Allergen ID Allergen Name Allergen Category Reaction Reaction Severity Criticality Documentation Date Start Date Code Code System Note Provider Name and Address Organization Details Recorded Time 7221747 metformin / sitaglipt in medicatio n Not available Not available Not available 05/23/20232019 22975 7 RxNorm Not Available [facility] 4 04:38:49 1547168 Fasenra medicatio n abdominal pain cough nausea respirato ry distress Not available Not available Not available Not available Not available 06/26/2024 05 RxNorm Not Available Health Note 5 12:41:53 Medications Name Sig Start Date Stop Date Status Note LastModified by Organization Details LastModified Time amoxicillin 500 mg capsule TAKE 1 CAPSULE BY MOUTH EVERY 8 HOURS UNTIL FINISHED 01/30 completed Not Available Not Available Not Available albuterol sulfate 2.5 mg/3 mL (0.083 %) solution for nebulizatio n USE ONE VIAL IN NEBULIZER EVERY TWICE A DAY active Not Available Not Available No t Available metoprolol succinate ER 100 mg tablet,exte nded release 24 hr TAKE 1.5 TABLETS (150 MG TOTAL) BY MOUTH DAILY active Not Available Not Available No t Available simvastatin 10 mg tablet TAKE 1/2 TABLET BY MOUTH DAILY active Not Available Not Available No t Available prednisone 5 mg tablet PLEASE SEE ATTACHED FOR DETAILED DIRECTION S active Not Available Not Available No t Available Accu-Chek Softclix Lancets TEST BLOOD SUGAR ONCE DAILY E11.9 active Not Available Not Available No t Available chlorthalid one 25 mg tablet TAKE 1/2 TABLET BY MOUTH EVERY DAY active Not Available Not Available No t Available aspirin 81 mg tablet,get yed release TAKE 1 TABLET BY MOUTH EVERY DAY active Not Available Not Available No t Available glimepiride 2 mg tablet TAKE 2 TABLETS BY MOUTH EVERY MORNING & TAKE 2 TABLETS BY MOUTH EVERY EVENING 01/30 completed Not Available Not Available Not Available Depo-Medrol 80 mg/mL suspension for injection Take 40 mg by injection route. 2023 active Not Available Not Available Not Avai lable triamcinolo ne acetonide 0.025 % topical cream PLEASE SEE ATTACHED FOR DETAILED DIRECTION S active Not Available Not Available No t Available methotrexat e sodium 2.5 mg tablet ONCE WEEKLY, TAKE 6 TABLETS BY MOUTH 2024 active Not Available Not Available Not Avai lable doxycycline monohydrate 100 mg capsule TAKE 1 CAPSULE BY MOUTH TWICE A DAY 01/30 completed Not Available Not Available Not Available hydrocodone 7.5 mg-acetamin ophen 325 mg tablet TAKE 1 TABLET BY MOUTH EVERY 6 HOURS NEEDED FOR PAIN active Not Available Not Available No t Available budesonide 0.25 mg/2 mL suspension for nebulizatio n INHALE 1 VIAL VIA NEBULIZER TWICE DAILY 01/30 completed Not Available Not Available Not Available budesonide 0.5 mg/2 mL suspension for nebulizatio n USE 1 VIAL IN NEBULIZER TWICE DAILY - RINSE MOUTH AFTER EACH USE active Not Available Not Available No t Available folic acid 1 mg tablet TAKE 1 TABLET BY MOUTH DAILY 2024 active Not Available Not Available Not Avai lable montelukast 10 mg tablet TAKE 1 TABLET BY MOUTH EVERY DAY IN THE EVENING active Not Available Not Available No t Available hydroxychlo roquine 200 mg tablet TAKE 1 TABLET BY MOUTH TWICE DAILY 2024 active Not Available Not Available Not Avai lable methylpredn isolone 4 mg tablets in a dose pack TAKE 6 TABLETS ON DAY 1 DIRECTED ON PACKAGE AND DECREASE BY 1 TAB EACH DAY FOR A TOTAL OF 6 DAYS active Not Available Not Available No t Available albuterol sulfate HFA 90 mcg/actuati on aerosol inhaler INHALE 1 TO 2 PUFFS BY MOUTH EVERY 4 TO 6 HOURS NEEDED active Not Available Not Available No t Available cefdinir 300 mg capsule TAKE 1 CAPSULE BY MOUTH EVERY 12 HOURS active Not Available Not Available No t Available terazosin 10 mg capsule TAKE 1 CAPSULE BY MOUTH EVERYDAY AT BEDTIME active Not Available Not Available No t Available amoxicillin 500 mg-potassiu m clavulanate 125 mg tablet TAKE 1 TABLET BY MOUTH EVERY 12 HOURS active Not Available Not Available No t Available Klor-Con M20 mEq tablet,exte nded release TAKE 1 TABLET BY MOUTH EVERY DAY active Not Available Not Available No t Available chlorhexidi ne gluconate 0.12 % mouthwash RINSE 5 ML 2-3 TIMES PER DAY FOR 1 WEEK, THEN SPIT 01/30 completed Not Available Not Available Not Available arformotero l 15 mcg/2 mL solution for nebulizatio n USE 1 VIAL VIA JET NEB TWICE A DAY IN THE AM AND IN THE PM DIRECTED active Not Available Not Available No t Available Accu-Chek Shyanne Plus test strips CHECK BLOOD SUGAR ONCE A DAY active Not Available Not Available No t Available Eliquis 5 mg tablet TAKE 1 TABLET BY MOUTH TWICE A DAY active Not Available Not Available No t Available Farxiga 10 mg tablet TAKE 1 TABLET BY MOUTH EVERY MORNING active Not Available Not Available No t Available Tresiba FlexTouch U-100 insulin 100 unit/mL (3 mL) subcutaneou s pen INJECT 24 UNITS SUBCUTANE OUSLY AT BEDTIME active Not Available Not Available No t Available Glucosamine Chondroitin bid active Not Available Not Available Not Available BD Silvana 2nd Gen Pen Needle 32 gauge x 5/32 INJECT NIGHTLY active Not Available Not Available No t Available FreeStyle Rakesh 3 Sensor device USE DIRECTED TO MONITOR DIABETES CONTROL active Not Available Not Available No t Available Ozempic 0.25 mg or 0.5 mg (2 mg/3 mL) subcutaneou s pen injector Inject by subcutane ous route. 2024 active Not Available Not Available Not Avai ricardo Loera 100,000 unit/gram topical powder APPLY TO AFFECTED AREA TWICE A DAY active Not Available Not Available No t Available Vitals Date Recorded Body weight Heart rate Oxygen saturation Oxygen saturation in Arterial blood by Pulse oximetry Systolic And Diastolic Provider Name and Address Organization Details Last Updated DateTime 5 97220.3 3 g 84 /min 94 % 94 % 136/78 mm[Hg] Precious Condon [facility] 5 12:39:09 Date Recorded Body weight Heart rate Oxygen saturation Oxygen saturation in Arterial blood by Pulse oximetry Pain severity - 0-10 verbal numeric rating [Score] - Reported Systolic And Diastolic Provider Name and Address Organization Details Last Updated DateTime 4 62586.3 1 g 78 /min 95 % 95 % 3 120/68 mm[Hg] Araceli Coleman [facility] 4 11:29:03 Social History Question Answer Notes LastModified by [place] Details LastModified Time Tobacco Smoking Status Never Smoker Not Available Health Note 06/26/2024 12:41:54 Do You Have An Advance Directive? No [email or web address] Information not available 06/26/2024 What Is Your Level Of Caffeine Consumption? Occasional [email or web address] Information not available 06/26/2024 How Many Times Per Week Do You Exercise? 3-4 Times Per Week [email or web address] Information not available 06/26/2024 What Was The Date Of Your Most Recent Tobacco Screening? 07/03/2024 [email or web address] Information not available 06/26/2024 What Is Your Relationship Status? [email or web address] Information not available 06/26/2024 Sex: Unknown Functional Status Question Answer Note LastModified by [place] Details LastModified Time How many times per week do you consume alcohol? Less than 1 time per week [email or web address] Information not available 06/26/2024 Do you use any illicit or recreational drugs? No [email or web address] Information not available 06/26/2024 What is your level of alcohol consumption? Occasional [email or web address] Information not available 06/26/2024 Are you currently employed? No [email or web address] Information not available 06/26/2024 What is your occupation? Retired [email or web address] Information not available 06/26/2024 What is your exercise level? Occasional [email or web address] Information not available 06/26/2024 Mental Status None recorded. Family History Relationship Description Onset Age of this Age Resolved Age Notes LastModified by Organization Details LastModified Time Father Family history of malignant neoplasm [email or web address] Not available 2024 12:41:52 Father Chronic obstructive pulmonary disease [email or web address] Not available 2024 12:41:52 Father Diabetes mellitus [email or web address] Not available 2024 12:41:52 Father Heart disease [email or web address] Not available 2024 12:41:52 Father Hypertensive disorder [email or web address] Not available 2024 12:41:52 Father Hypercholest erolemia [email or web address] Not available 2024 12:41:52 Maternal Grandmother Family history of malignant neoplasm [email or web address] Not available 2024 12:41:52 Paternal Grandmother Family history of malignant neoplasm [email or web address] Not available 2024 12:41:52 Paternal Grandmother Diabetes mellitus [email or web address] Not available 2024 12:41:52 Maternal Grandfather Heart disease [email or web address] Not available 2024 12:41:52 Mother Hypertensive disorder [email or web address] Not available 2024 12:41:52 Mother Hypercholest erolemia [email or web address] Not available 2024 12:41:52 Mother Osteoporosis [email or web address] Not availa ble 06/26/2024 12:41:52 Medical History Condition Response Diabetes Y Anxiety Disorder N Bleeding Disorder N Attention-deficit Hyperactivity Disorder N High Blood Pressure Y Arthritis Y Hyperlipidemia N Cancer N Stroke N Thyroid Problems N Asthma Y Depression N COPD N Anemia N Seizures N Heart Disease Y Fibromyalgia N Osteoporosis N Kidney Disease N Past Encounters Encounter ID Performer Location Encounter Start Date Encounter Closed Date Diagnosis/Indication Diagnosis SNOMED-CT Code Diagnosis ICD10 Code Diagnosis Note [id number] Raza Chowdhury MD [facility] [place] [address] [place] [address] 01/31/2024 10:58:21 02/04/2024 10:28:01 Osteoarthritis of left knee joint 4640238793 22308 M17.12 Seropositi ve rheumatoid arthritis 639850208 M05.9 Dupuytren' s disease of palm of right hand 6410707724 2454118 M72.0 Dupuytren' s disease of palm of left hand 6354491869 2473687 M72.0 [id number] Raza Chowdhury MD [facility] ([place] [address] [place] [address] 07/03/2024 12:32:01 07/06/2024 05:31:40 Seropositive rheumatoid arthritis 595874596 M05.9 Osteoarthr itis of left knee joint 3530354364 47853 M17.12 Health Concerns Section Related Observation LastModified by Organization Detai ls LastModified Time None Recorded Concern Status LastModified by Organization Details LastModified Time None Recorded Advance Directives Directive N: Payers Insurance Date Sequence Insurance Name Policy Number Policy Horn Covered Member ID Horn Member ID Guarantor Name 03/07/2024 1 [facility] [id number] Binh Herrera [id number] MEHDI Herrera 07/01/2024 1 [facility] - DOS PRIOR TO 2024 (PPO) [id number] Binh Herrera [id number] MEHDI Herrera 07/01/2024 1 [facility] [id number] Binh Herrera [id number] Binh Herrera
--- OUTSIDE RECORDS SUMMARY | 2024-11-17 07:59 | XMS_ITS | Encounter Summary ---
Author Organization [facility] Address [address] [place] [address] Care Team Providers Care Supervisor Shrimp Pond Name Role Phone Alex Farfan MD Primary Care Provider [phone] Mark Guzmán MD Unavailable Eber Gonzalez MD Unavailable Unavailable Deonte Ly MD Unavailable [phone] Bijan Gabriel MD Unavailable [phone] Lindsey López APRN, PRODUCTION MECHANIC [employer] Unavailable [phone] Micaela Rucker MD Unavailable [phone] Encounter Details Date Type Department Care Team (Late st Contact Info) Description 08/13/2019 Abstract [facility] [address] [place] [id number] Abstract, Doc [facility] Social History Tobacco Use Types Packs/Day Years Used Date Smoking Tobacco: Never Alcohol Use Standard Drinks/Week Comments Yes 0 (1 standard drink = 0.6 oz pure alcohol) 1-2 drinks every couple of months Sex and Gender Information Value Date Recorded Sex Assigned at Not on file Legal Sex Male 3:37 PM BATCH ATTENDANT Gender Identity Male 06/10/2021 11:48 AM BATCH ATTENDANT Sexual Orientation Straight 06/10/2021 11 :48 AM BATCH ATTENDANT COVID-19 Exposure Response Date Recorded In the last month, have you been in contact with someone who was confirmed or suspected to have Coronavirus / COVID-19? No / Unsure 08/13/2019 12:00 PM CDT documented as of this encounter Plan of Treatment Not on file documented as of this encounter Procedures Procedure Name Priority Date/Time Associated Diagnosis Comments CMP (ABSTRACTED LAB) Routine 07/17/2019 CARDIAC PROFILE Routine 07/17/2019 CBC NO DIFF Routine 07/17/2019 documented in this encounter Results * CBC NO DIFF (07/17/2019) WBC 14.2 RBC 4.73 HGB 13.9 HCT 43.0 MCV 90.9 MCH 29.4 MCHC 32.3 RDW 13.5 PLT 320 MPV 8.7 07/17/2019 us Doc [facility] Abstract LABORATORY Final Result * CARDIAC PROFILE (CK,CKMB,TROP) (07/17/2019) TOTAL CK 36 CK MB 0.80 TROPONIN I <0.02 07/17/2019 us Doc [facility] Abstract LABORATORY Final Result * CMP (ABSTRACTED LAB) (07/17/2019) SODIUM S/P/B 139 POTASSIUM S/P/B 3.9 CHLORIDE S/P/B 101 CO2 28 BUN 20 CREATININE S/P/B 1.15 0.7 - 1.3 EGFR AFR. AMER. >60 EGFR NON-AFR. AMER. >60 <=90 CALCIUM S/P/B 9.2 GLUCOSE 186 mg/dL TOTAL PROTEIN S/P/B 6.9 ALBUMIN S/P/B 3.5 3.5 - 5.0 AST 13 ALT 33 ALKALINE PHOSPHATASE S/P/B 77 BILIRUBIN TOTAL S/P/B 0.3 07/17/2019 us Doc [facility] Abstract LAB-OUTSIDE/ABSTRACTED Final Result documented in this encounter Visit Diagnoses Not on filedocumented in this encounter Additional Health Concerns Infection Onset Date Last Indicated Resolved Time COVID-19 Rule Out 10/18/2019 10/18/2019 10/19/2019 7:49 PM CDT documented as of this encounter Care Teams Supervisor Shrimp Pond Relationship Specialty Start Date End Date Alex Farfan MD [address] [place] [id number] PCP - General INTERNAL MEDICINE 06/17/19 Mark Guzmán MD [address] [place] [phone] Consulting Physician CARDIOVASCULAR DISEASE 07/30/19 Eber Gonzalez MD [address] [place] [address] Consulting Physician CLINICAL CARDIAC ELECTROPHYSIOLOGY 10/08/19 11/12/24 Deonte Ly MD [address] [place], [place] [id number] INTERNAL MEDICINE 10/22/19 Bijan Gabriel MD [address] [place] [phone] Consulting Physician INTERNAL MEDICINE 06/03/20 Lindsey López, MARY, PRODUCTION MECHANIC [employer] [address] [phone] NURSE PRACTITIONER 06/03/20 Micaela Rucker MD [address] [address] INTERVENTIONAL CARDIOLOGY 12/08/2310/22 documented as of this encounter
--- OUTSIDE RECORDS SUMMARY | 2024-11-17 07:59 | XMS_ITS | Clinical Summary ---
Author Organization [facility] Address [address] [place] [address] Care Team Providers Care Punch Card Operator Name Role Phone Alex Farfan MD Primary Care Provider [phone] Allergies Active Allergy Reactions Criticality Noted Date Comments Benralizumab Shortness of breath,Swelling High 03/09/2021 Losartan Dizziness Low 07/30/2019 Sitagliptin Phos-Metformin Other (See comments) Low 07/30/2019 Abdominal pain Theophylline Other (See comments) Low 07/30/2019 Abdominal pain Medications fexofenadine (VLAD) 180 mg tabletIndicatio ns:Allergic Rhinitis Take 180 mg by mouth daily with breakfast Active azelastine (ASTELIN) 137 mcg (0.1 %) nasal sprayIndication s:Perennial Allergic Rhinitis Administer 1 spray into each nostril every 12 hours Active FARXIGA 5 mg tabletIndicatio ns:type 2 diabetes mellitus Take 5 mg by mouth daily with breakfast 8 Active glimepiride (AMARYL) 2 mg tabletIndicatio ns:type 2 diabetes mellitus Take 2 mg by mouth 2 (two) times a day 0 8 Active fluticasone-julio anterol (BREO ELLIPTA) 100-25 mcg/dose diskus inhalerIndicati ons:shortness of breath Inhale 1 puff daily after breakfast Rinse mouth with water after use. Do not swallow. Active albuterol HFA (PROVENTIL HFA,VENTOLIN HFA,PROAIR HFA) 90 mcg/actuation inhalerIndicati ons:shortness of breath Inhale 2 puffs every 4 (four) hours as needed Active fluticasone propionate (FLONASE) 50 mcg/actuation nasal sprayIndication s:Allergic Rhinitis Administer 1 spray into each nostril 2 (two) times a day Active albuterol (PROVENTIL,VENT FELICITY) 0.63 mg/3 mL nebulizer solution Take 0.63 mg by nebulization every 6 (six) hours as needed for wheezing Active multivit-min/FA /lycopen/lutein (CENTRUM SILVER MEN ORAL)Indication s:supplement Take 1 tablet by mouth daily with breakfast Active terazosin (HYTRIN) 10 mg capsuleIndicati ons:benign prostatic hyperplasia with lower urinary tract sx Take 10 mg by mouth nightly Active magnesium oxide 400 mg magnesium capsuleIndicati ons:hypomagnese vicky Take 400 mg by mouth daily with breakfast Active Lactobacillus acidophilus (PROBIOTIC ORAL)Indication s:suppelment Take 1 capsule by mouth daily with breakfast Active ACCU-CHEK CRISTINA PLUS TEST STRP strip 9 Active ACCU-CHEK SOFTCLIX LANCETS lancets 9 Active cyclobenzaprine (FLEXERIL) 5 mg tablet 1 Active chlorthalidone 25 mg tablet Take 12.5 mg by mouth daily 1 Active Klor-Con M20 20 mEq CR tablet Take 20 mEq by mouth daily 1 Active aspirin 81 mg enteric coated tablet Aspir-Low 81 mg tablet,delayed release Take 1 tablet every day by oral route. Active Eliquis 5 mg tablet Take 5 mg by mouth 2 (two) times a day 1 Active metoprolol XL (TOPROL-XL) 100 mg 24 hr tablet Take 100 mg by mouth daily 1 Active hydrOXYchloroQU INE (PLAQUENIL) 200 mg tablet Take 200 mg by mouth 2 (two) times a day 1 Active budesonide (PULMICORT) 0.25 mg/2 mL nebulizer solution Take 0.25 mg by nebulization daily Rinse mouth with water after use. Do not swallow. Active arformoteroL (BROVANA) 15 mcg/2 mL nebulizer solution Take by nebulization 2 (two) times a day Active verapamil SR (CALAN SR) 180 mg CR tablet verapamil ER (SR) 180 mg tablet,extended release TAKE 1 TABLET BY MOUTH AT BEDTIME Active pantoprazole DR (PROTONIX) 20 mg EC tablet pantoprazole 20 mg tablet,delayed release TAKE 1 TABLET BY MOUTH EVERY DAY DIRECTED Active gabapentin (NEURONTIN) 100 mg capsule gabapentin 100 mg capsule TAKE 1 CAPSULE BY MOUTH IN THE MORNING AT NOON AND 2 CAPSULES BY MOUTH AT BEDTIME Active HYDROcodone-kait taminophen (NORCO) 5-325 mg per tablet Take by mouth 2 (two) times a day as needed 2 Active Active Problems Problem Noted Date Diagnosed Date BCC (basal cell carcinoma), arm, left 01/08/2021 Hyperlipidemia 01/07/2021 Hypertension 01/07/2021 Type 2 diabetes mellitus 01/07/2021 Adverse reaction to drug 12/13/2020 Dyspnea 12/13/2020 Coronary artery calcification seen on CT scan Palpitations 10/08/2019 Paroxysmal atrial fibrillation 08/29/2019 Syncope and collapse 08/21/2019 Contracture of hand 08/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 Overview (08/01/2018): Added automatically from request for surgery [id number] Severe persistent asthma 07/12/2018 Dupuytren contracture 03/08/2018 Allergic rhinitis due to pollen 03/05/2018 Chronic allergic conjunctivitis 03/05/2018 Dry eyes 03/05/2018 Lymphadenopathy 03/05/2018 Sjogren's syndrome 03/05/2018 Tight chest 03/05/2018 Upper respiratory infection 03/05/2018 Hay fever 05/03/2012 Eczematous dermatitis of eyelid 05/03/2012 Asthma 03/20/2012 Resolved Problems Problem Noted Date Diagnosed Date Resolved Date 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 03/05/2018 03/08/2018 Overview (03/05/2018): Added automatically from request for surgery [id number] Immunizations Immunization Administration Dates Next Due Influenza, Trivalent, IM (MDV) 01/29/2014 Influenza, Unspecified 04/23/2012 Pneumococcal, Unspecified 04/23/2012 Surgical History Surgery Date Site/Laterality Comments DUPUYTREN CONTRACTURE RELEASE Bilateral multiple PILONIDAL CYST DRAINAGE Medical History Medical History Date Comments Asthma Diabetes type 2, controlled (HCC) Hypertension Sjoegren syndrome Coronary artery calcification seen on CT scan 02/2020 Family History Medical History Relation Name Comments Heart disease Father Lung cancer Father Osteoporosis Mother Relation Name Status Comments Father Mother Alive Social History Tobacco Use Types Packs/Day Years Used Date Smoking Tobacco: Never Smokeless Tobacco: Never Alcohol Use Standard Drinks/Week Comments Yes 0 (1 standard drink = 0.6 oz pur e alcohol) social Humiliation, Afraid, Rape, and Kick questionnair e Answer Date Recorded Fear of Current or Ex-Partner Patient declined 0 08/01/2018 Emotionally Abused Patient declined 08/01/2018 Physically Abused Patient declined 08/01/2018 Sexually Abused Patient declined 08/01/2018 Social Connection and Isolation Panel [NHANES] A nswer Date Recorded Frequency of Communication with Friends and Fami ly Patient declined 08/01/2018 Frequency of Social Gatherings with Friends and Family Patient declined 08/01/2018 Attends Druze Services Patient declined 07/22 Active Member of Clubs or Organizations Patient declined 08/01/2018 Attends Club or Organization Meetings Patient de clined 08/01/2018 Marital Status Patient declined 08/01/2018 Overall Financial Resource Strain (CARDIA) Answe r Date Recorded Difficulty of Paying Living Expenses Patient dec lined 08/01/2018 [facility] Occup[facility] ional Health - Occupational Stress Questionnaire Answer Date Recorded Feeling of Stress Patient declined 08/01/2018 Exercise Vital Sign Answer Date Recorde d Days of Exercise per Week Patient declined 08/01 Minutes of Exercise per Session Patient declined 08/01/2018 Hunger Vital Sign Answer Date Recorded Worried About Running Out of Food in the Last Ye ar Patient declined 08/01/2018 Ran Out of Food in the Last Year Patient decline d 08/01/2018 PRAPARE - Transportation Answer Date Re corded Lack of Transportation (Medical) Patient decline d 08/01/2018 Lack of Transportation (Non-Medical) Patient dec lined 08/01/2018 Sex and Gender Information Value Date Recorded Sex Assigned at Not on file 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 Gender Identity Male 12/07/2020 10:14 PM CDT Sexual Orientation Straight 12/07/2020 10 :14 PM CDT Occupation Industry Job Start Date Job End Date retired Not on file Not on file Not on file Obstetrics History Last Filed Vital Signs Vital Sign Reading Time Taken Comments Blood Pressure 161/88 10/14/2018 9:50 AM CDT Pulse 84 10/14/2018 10:00 AM CDT Temperature 36.6 C (97.9 F) 10/14/2018 9:27 AM CDT Respiratory Rate 16 10/14/2018 9:25 AM CDT Oxygen Saturation 96% 10/14/2018 10:00 AM CDT Inhaled Oxygen Concentration - - Weight 72.6 kg (160 lb) 12/14/2020 1:38 PM CDT Height 165.1 cm (5' 5) 12/14/2020 1:38 PM CDT Body Mass Index 26.63 12/14/2020 1:38 PM CDT Plan of Treatment Health Maintenance Due Date Last Done Comments Albumin Creatinine Ratio, Urine 1945 Depression Screening 1945 Fall Risk Assessment 1945 Hepatitis C Screening 1945 eGFR 1945 Dilated Eye Exam 1945 Foot Exam 1945 Lipid Panel 1945 Hepatitis B Screening 1965 Well Visit 65+ 01/06/2012 Covid-19 Vaccine (3 - Modern a risk series) 09/28/2020 08/31/2020, 08/03/2020 DTaP/Tdap/Td Vaccine (2 - Td or Tdap) 02/18/2023 02/18/2013 Hemoglobin A1C 08/21/2023 02/20/2023, 06/2018, 03/20/2018 Influenza Vaccine (#1) 2024 , 01/14/2019, 02/07/2018, Additional history exists Pneumococcal vaccine 65+ Completed 018, 12/31/2015, 05/23/2012, Additional history exists Zoster Vaccine Completed 04/06/2020, 05/2019, 02/18/2013 Procedures Procedure Name Priority Date/Time Associated Diagnosis Comments HEMOGLOBIN A1C Routine 02/20/2023 9:54 AM CDT Dupuytren's contracture of left hand from Last 3 Months or Most Recently Relevant to Health Maintenance Results * (ABNORMAL) Hemoglobin A1c (02/20/2023 9:54 AM CDT) Hgb A1C 7.8(H) <5.7 % of total Hgb [facility] Comment: For someone without known diabetes, a hemoglobin A1c value of 6.5% or greater indicates that they may have diabetes and this should be confirmed with a follow-up test. For someone with known diabetes, a value <7% indicates that their diabetes is well controlled and a value greater than or equal to 7% indicates suboptimal control. A1c targets should be individualized based on duration of diabetes, age, comorbid conditions, and other considerations. Currently, no consensus exists regarding use of hemoglobin A1c for diagnosis of diabetes for children. Your request to have a duplicate copy faxed has been acknowledged. Queued to: [id number] Blood 02/20/2023 9:54 AM CDT 02/20/2023 9:54 AM CDT us Tonya Metcalf MD LAB BLOOD ORDERABLES Final Resu lt [facility] [address] [place] [address] from Last 3 Months or Most Recently Relevant to Health Maintenance Insurance MEDICARE [facility] H[facility]PPO Address: [address] [address] [place] [address] MEDICARE [facility] H[facility]/PPO Address: [address] [address] [place] [address] [employer] OPEN ACCESS [employer] HMO/PPO Address: [address] [place] [address] GE MCR SUPPLEMENT MARY KAY HERNANDEZ [address] Care Teams Punch Card Operator Relationship Specialty Start Date End Date Alex Farfan MD PCP - General Internal Medicine 02/20/18
--- OUTSIDE RECORDS SUMMARY | 2024-11-17 07:59 | XMS_ITS | Clinical Summary ---
Author Organization [facility] Address [address] [place] [address] Phone Care Team Providers Care Automatic Bow Maker Machine Tender Name Role Phone Provider, None Primary Care Provider Unavailabl e Allergies No known active allergies Medications Fluticasone Furoate-Vilante rol (BREO ELLIPTA IN) take by inhalation. Active Mometasone Furoate (ASMANEX HFA IN) take by inhalation. Active AZELASTINE HCL NA azelastine 137 mcg (0.1 %) nasal spray aerosol SPRAY 2 SPRAYS INTO EACH NOSTRIL TWICE A DAY Active aspirin EC (ASPIR-LOW) 81 MG Tablet Delayed Response Aspir-Low 81 mg tablet,delayed release Take 1 tablet every day by oral route. Active albuterol (PROVENTIL, VENTOLIN) (2.5 MG/3ML) 0.083% Nebulizer Soln albuterol sulfate 2.5 mg/3 mL (0.083 %) solution for nebulization USE ONE VIAL VIA NEBULIZER 3 TIMES A DAY NEEDED Active colchicine 0.6 MG Tablet colchicine 0.6 mg tablet Take 1 tablet twice a day by oral route as needed. Active Dapagliflozin Propanediol (FARXIGA) 5 MG Tablet Farxiga 5 mg tablet Take 1 tablet every day by oral route. Active Glimepiride (AMARYL PO) glimepiride Active losartan (COZAAR) 50 MG Tablet losartan 50 mg tablet Take 1 tablet every day by oral route. Active terazosin (HYTRIN) 10 MG Capsule terazosin 10 mg capsule Active simvastatin (ZOCOR) 10 MG Tablet simvastatin 10 mg tablet Active zafirlukast (ACCOLATE) 20 MG Tablet zafirlukast 20 mg tablet Take 1 tablet twice daily Active VERAPAMIL HCL PO Take by mouth. Activ e methylPREDNISol one (MEDROL DOSPACK) 4 MG Tablet Therapy Pack Use as per instructions on package. 1 Dose Pack 9 Active Active Problems Problem Noted Date Diagnosed Date Upper respiratory tract infection 11/29/2018 Social History Tobacco Use Types Packs/Day Years Used Date Smoking Tobacco: Never Smokeless Tobacco: Never Sex and Gender Information Value Date Recorded Sex Assigned at Not on file Legal Sex Male 8:45 PM CDT Gender Identity Not on file Sexual Orientation Not on file Last Filed Vital Signs Vital Sign Reading Time Taken Comments Blood Pressure 130/62 11/29/2018 12:26 PM CDT Pulse 102 11/29/2018 12:26 PM CDT Temperature 37.2 C (98.9 F) 11/29/2018 12:26 PM CDT Respiratory Rate 20 11/29/2018 12:26 PM CDT Oxygen Saturation 96% 11/29/2018 12:26 PM CDT Inhaled Oxygen Concentration - - Weight 70.8 kg (156 lb) 11/29/2018 12:26 PM CDT Height 165.1 cm (5' 5) 11/29/2018 12:26 PM CDT Body Mass Index 25.96 11/29/2018 12:26 PM CDT Plan of Treatment Health Maintenance Due Date Last Done Comments Hepatitis C Virus (HCV) Screening 1945 Zoster Immunization (2 of 3) 04/15/2013 02/18/2013 Respiratory Syncytial Virus (RSV) Immunization (Adult) (1 - 1-dose 75+ series) 2022 SARS-COV-2 Immunization ( season) 2023 04/13/2021, 08/31/2020, 08/03/2020 Influenza Immunization (#1) 12/22/202401/21, 01/02/2017, 12/21/2015, Additional history exists DTaP/Tdap/Td Immunization Discontinued 02/18/2013 TdaP Immunization Completed 02/18/2013 Pneumococcal Immunization (50+ years) Completed 04/02/2018, 12/31/2015, 05/23/2012 Pneumococcal Immunization Combined Discontinued 04/02/2018, 12/31/2015, 05/23/2012 Hepatitis B Immunization Aged Out No longer eligible based on patient's age to complete this topic Human Papillomavirus (HPV) Immunization Aged Out No longer eligible based on patient's age to complete this topic Meningococcal Immunization (ACWY) Aged Out No longer eligible based on patient's age to complete this topic Rotavirus Immunization Aged Out No lo nger eligible based on patient's age to complete this topic Insurance [facility] SHARED potline monitor Care Teams Automatic Bow Maker Machine Tender Relationship Specialty Start Date End Date Provider, None [place] PCP - General 11/29/18
--- OUTSIDE RECORDS SUMMARY | 2024-11-17 07:59 | XMS_ITS | Encounter Summary ---
Author Organization [facility] Address [address] [place] [address] Phone Care Team Providers Care Dozer Operator Name Role Phone Alex Farfan MD Primary Care Provider [phone] Encounter Details Date Type Department Care Team (Late st Contact Info) Description 03/30/2023 Telephone [facility] Occupational Therapy [address] [facility] [address] [place] [address] [place] [address] Raza Felix, OT [address] [facility] [address] [place] [address] Social History Tobacco Use Types Packs/Day Years [...] Friends and Family Patient declined 08/01/2018 Attends Church Services Patient declined 07/22 Active Member of Clubs or Organizations Patient declined 08/01/2018 Attends Club or Organization Meetings Patient de clined 08/01/2018 Marital Status Patient declined 08/01/2018 Overall Financial Resource Strain (CARDIA) Answe r Date Recorded Difficulty of Paying Living Expenses Patient dec lined 08/01/2018 [facility] of Occupat ional Health - Occupational Stress [...] on file 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
--- OUTSIDE RECORDS SUMMARY | 2024-11-17 07:59 | XMS_ITS | Encounter Summary ---
Author Organization [facility] Address [address] [place] [address] Phone Care Team Providers Care Forming Mill Operator Name Role Phone Alex Farfan MD Primary Care Provider [phone] Encounter Details Date Type Department Care Team (Late st Contact Info) Description 05/18/2021 Telephone [facility] Surgery [address] [place] [address] [address] [place] [address] Magali Chadwick Social History Tobacco Use Types Packs/Day Years [...] Friends and Family Patient declined 08/01/2018 Attends Orthodoxy Services Patient declined 07/22 Active Member of Clubs or Organizations Patient declined 08/01/2018 Attends Club or Organization Meetings Patient de clined 08/01/2018 Marital Status Patient declined 08/01/2018 Overall Financial Resource Strain (CARDIA) Answe r Date Recorded Difficulty of Paying Living Expenses Patient dec lined 08/01/2018 [facility] [place] of Occupat ional Health - Occupational Stress [...] on file 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
--- OUTSIDE RECORDS SUMMARY | 2024-11-17 07:59 | XMS_ITS | Encounter Summary ---
Author Organization [facility] Address [address] [place] [address] Phone Care Team Providers Care Textile Screen Maker Name Role Phone Alex Farfan MD Primary Care Provider [phone] Encounter Details Date Type Department Care Team (Late st Contact Info) Description 03/30/2023 Documentation [facility] Occupational Therapy [address] [facility] [address] [place] [address] [place] [address] Raza Felix, OT [address] [facility] [address] [place] [address] Social History Tobacco Use Types Packs/Day Years [...] Friends and Family Patient declined 08/01/2018 Attends Religion Services Patient declined 07/22 Active Member of Clubs or Organizations Patient declined 08/01/2018 Attends Club or Organization Meetings Patient de clined 08/01/2018 Marital Status Patient declined 08/01/2018 Overall Financial Resource Strain (CARDIA) Answe r Date Recorded Difficulty of Paying Living Expenses Patient dec lined 08/01/2018 [facility] [place] of Occupat ional Health - Occupational Stress [...] on file Legal Sex Male 9:56 AM 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
--- OUTSIDE RECORDS SUMMARY | 2024-11-17 07:59 | XMS_ITS | Continuity of Care Document ---
Author Organization [facility] Address [address] [facility] [address] [place] [address] Phone Care Team Providers Care Woods Manager Name Role Phone Dereje KAMARA, Jael Unavailable [...] Diagnoses Date Provider Providers Copied on Encounter [facility], [address] [address], [place], [place], [address], tel:[phone] SEC Francesco SHELLEY Professional Post-Op (chief complaint) Post op visit 5 Dereje ANH Elder. [facility] [address], [address], [place], [place], [address], [place]. tel:[phone] Raza Chowdhury MD.Referri ng Provider: Jeff Cedillo, [address] [facility] [address], [place], [address] . tel:[phone] [facility], [address] [address], [place], [place], [address], tel:[phone] SEC Francesco SHEL[place] Professional 1 Day CE/IOL/Lens Ar/Toric PO (chief complaint) Post op visit 5 Dereje OD Jael. [address], [address], [place], [place], [address], [place]. tel:[phone] Raza Chowdhury MD.Referri ng Provider: Jeff Cedillo, [address], [place], [address] . tel:[phone] [facility], [address], [place], [place], [address], [place] tel:[phone] [facility] No Information Sep- 0- 5 Lacy Gallagher. [address], [address], [place], [place], [address], [place]. tel:[phone] Referring Provider: Inocencia Sandra, [address] [place] [address] [address], [place], [address] . tel:[phone] [facility], [address] [place] [address] [address], [place], [place], [address], tel:[phone] SEC Francesco [place] Professional Post-Op (chief complaint) Post op visitDry eyes, bilateral August- 4-202 5 Dereje OD Jael. [address] [place] [address] [address], [address], [place], [place], [address], [place]. tel:[phone] Raza Chowdhury MD.Referri ng Provider: Jeff Cedillo, [address], [place], [address] . tel:[phone] [facility], [address] [place] [address] [address], [place], [place], [address], [place] tel:[phone] SEC Francesco [place] Professional Emergency work in (chief complaint) Post op visitDry eyes, bilateral August-0 6-202 5 Marques Pro. [address] [place] [address] [address], [address], [place], [place], [address], [place]. tel:[phone] Raza Chowdhury MD.Referri ng Provider: Elliott Cedillo, [address] [place] [address], [place], [address] . tel:[phone] [facility], [address] [address], [place], [place], [address], tel:[phone] SEC Francesco SHELLEY Professional Post-Op (chief complaint) Post op visit 5 Dereje KAMARA Jael. [address] [place], [place] [address]crest [employer], [address], [place], [place], [address], . tel:[phone] Raza Chowdhury MD.Referri ng Provider: Jeff Cedillo, [address], [place], [address] . tel:[phone] [facility], [facility] [address], [place], [place], [address], tel:[phone] [facility] No Information 5 Lacy Gallagher. [facility] [address], [address], [place], [place], [address], [place]. tel:[phone] Referring Provider: Elliott Cedillo, [facility] [address], [place], [address] . tel:[phone] [facility], [facility] [address], [place], [place], [address], [place] tel:[phone] SEC [place] No Information 5 Lacy Gallagher. [facility] [address], [address], [place], [place], [address], [place]. tel:[phone] Office/outpa tient Visit, [facility], [facility] [address], [place], [place], [address], [place] tel:[phone] SEC Francesco SHELLEY Professional cataract check (chief complaint) Combined forms of age-related cataract of both eyesEpiretina l membrane (ERM), bilateralGlau comatous cupping of optic disc of both eyesIncreased corneal thickness of both eyesType 2 diab with mild nonp rtnop without macular edema, biCentral corneal opacity of right eye 5 Lacy Gallagher. [facility] [address], [address], [place], [place], [address], [place]. tel:[phone] Raza Chowdhury MD.Referri ng Provider: Jeff Cedillo, [address], [place], [address] . tel:[phone] Office/outpa tient Visit, [facility], [facility] [address], [place], [place], [address], [place] tel:[phone] SEC Francesco [place] Professional Cataract evaluation (chief complaint) Combined forms of age-related cataract, bilateralEpir etinal membrane (ERM), bilateralIncr eased corneal thickness of both eyesDeep retinal hemorrhage of right eyeType 2 diabetes mellitus without complications Regular astigmatism, bilateral 5 Lacy Gallagher. [facility] [address], [address], [place], [place], [address], [place]. tel:[phone] Raza Chowdhury MD.Referri ng Provider: Elliott Cedillo, [facility] [address], [place], [address] . tel:[phone] [facility], [facility] [address], [place], [place], [address], [place] tel:[phone] SEC Francesco [place] Professional Complete Exam (chief complaint) Long-term use of PlaquenilGlau coma suspect of both eyesType 2 diabetes mellitus without complication, without long-term current use of insulinCombin ed forms of age-related cataract of both eyes Oct- 4 Marques Pro. [facility], [address], [place], [place], [address], [place]. tel:[phone] Specialist : Raza Chowdhury MD, [address] [place] [address], [address] . tel:[phone] erring Provider: [place], [address], [place], [address] . tel:[phone] [facility], [address] [address], [place], [place], [address], [place] tel:[phone] SEC Francesco SHELLEY Professional No Information Nov-2 3-202 4 Marques OD Inocencia. [address] [place] [address] [address], [address], [place], [place], [address], [place]. tel:[phone] Office/outpa tient Visit, [facility], [address] [address], [place], [place], [address], [place] tel:[phone] SEC Francesco SHELLEY Professional Glaucoma (chief complaint) Glaucomatous cupping of optic disc of both eyes Jun- 4-201 6 Amadeo Aguilar. [address], [facility] [place], [address], [place]. tel:[phone] Referring Provider: Jeff Cedillo, [address] [facility] [address], [place], [address] . tel:[phone] [facility], [address], [place], [place], [address], [place] tel:[phone] SEC Francesco SHELLEY Professional Diabetic eye exam (chief complaint) Senile nuclear cataractOptic disc pathological cuppingDiabet es Sep-0 9-201 5 Amadeo Aguilar. [address], [place], [place], [address], [place]. tel:[phone] Referring Provider: Jeff Cedillo, [address], [place], [address] . tel:[phone] [facility], [address] [address], [place], [place], [address], [place] tel:[phone] SEC Francesco SHELLEY Professional No Information Sep-0 1-201 5 Amadeo Aguilar. [address] [facility], [address], [place], [place], [address], [place]. tel:[phone] [facility], [address], [place], [place], [address], [place] tel:[phone] SEC Francesco KARSTEN Professional No Information 2 Amadeo Aguilar. [address] [facility], [address], [place], [place], [address], [place]. tel:[phone] Referring Provider: Jeff Childs Nguyen, [address] [facility] [facility] [address], [place], [address] . tel:[phone] Family History Family Member Type Diagnosis Age [...] taking hydroxychlorquine and states Dr. Chowdhury in [facility]. 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 DM letter sent to Dr Farfan. Follow up - Return i n 2 months with Jeff Childs M.D. for , IOP check. Assessments Type Assessment Date assessment Post op visit Patient Care Teams Name Effective Dates (start - stop) Status Members No Information
--- OUTSIDE RECORDS SUMMARY | 2024-11-17 07:59 | XMS_ITS | Referral Summary ---
Author Organization [facility] Address [address] [place] [address] Care Team Providers Care Clinical Consultant Name Role Phone Alex Farfan MD Primary Care Provider [phone] Allergies Active Allergy Reactions Criticality Noted Date [...] (08/01/2018): Added automatically from request for surgery [id number] Severe persistent asthma 07/12/2018 Dupuytren contracture 03/08/2018 [...] (03/05/2018): Added automatically from request for surgery [id number] Immunizations Immunization Administration Dates Next Due Influenza, Trivalent, IM (MDV) 01/29/2014 Influenza, Unspecified 04/23/2012 Pneumococcal, Unspecified 04/23/2012 Social History Tobacco Use Types Packs/Day Years [...] Friends and Family Patient declined 08/01/2018 Attends Hoahaoism Services Patient declined 07/22 Active Member of Clubs or Organizations Patient declined 08/01/2018 Attends Club or Organization Meetings Patient de clined 08/01/2018 Marital Status Patient declined 08/01/2018 Overall Financial Resource Strain (CARDIA) Answe r Date Recorded Difficulty of Paying Living Expenses Patient dec lined 08/01/2018 [facility] - Occupational Stress [...] on file Legal Sex Male 9:56 AM GEOSPATIAL ENGINEER Gender Identity Male 12/07/2020 10:14 PM CDT Sexual Orientation Straight 12/07/2020 10 :14 PM CDT Occupation Industry Job Start Date Job End Date retired Not on file Not on file Not on file Last Filed Vital Signs [...] 12/14/2020 1:38 PM CDT Plan of Treatment Not on file Procedures Procedure Name Priority Date/Time Associated Diagnosis [...] copy faxed has been acknowledged. Queued to: [id number] Blood 02/20/2023 9:54 AM CDT 02/20/2023 9:54 AM CDT Tonya Metcalf MD LAB BLOOD ORDERABLES Final Resu lt [facility] [address] [place] [address] from Last 3 Months or Most Recently Relevant to Health Maintenance Insurance [facility]PP[facility] Address: [address] [address] [place] [address] MEDICARE [facility]/PPO Address: [address] [address] [place] [address] [employer] OPEN ACCESS [facility] MCR SUPPLEMENT Care Teams Clinical Consultant Relationship Specialty Start Date End Date Alex Farfan MD PCP - General Internal Medicine 02/20/18
--- OUTSIDE RECORDS SUMMARY | 2024-11-17 07:59 | XMS_ITS | Clinical Summary ---
Author Organization [facility] Address [address] [place] [address] Care Team Providers Care Cargo Checker Name Role Phone Alex Farfan MD Primary Care Provider Deonte Ly MD Unavailable [phone] Bijan Gabriel MD Unavailable [phone] Lindsey López CHARGE LPN, DIRECTOR CARDIAC-C Unavailable Allergies Active Allergy Reactions Criticality Noted Date Comments Benralizumab Shortness of Breath,Swelling High 03/09/2021 Sitagliptin Phos-Metformin Hcl Other (see comment) 07/30/2019 Abdominal pain Losartan Dizziness 07/30/2019 Theophylline Other (see comment) 07/30/2019 Abdominal pain Medications albuterol (2.5 MG/3ML) 0.083% nebulizer solution Take 3 mLs (2.5 mg total) by nebulization every 6 (six) hours as needed. Active simvastatin 10 MG tablet Take 0.5 tablets (5 mg total) by mouth daily. 0 Active Terazosin HCl 10 MG Cap Take 1 capsule (10 mg total) by mouth nightly. 0 Active ELIQUIS 5 MG tablet Take 1 tablet (5 mg total) by mouth 2 (two) times daily. 0 Active Multiple Vitamins-Mineral s (CENTRUM SILVER 50+MEN OR) Take 1 tablet by mouth daily. Active magnesium oxide 400 (241.3 Mg) MG tablet Take 1 tablet (400 mg total) by mouth daily. Active Turmeric 500 MG Cap Take 500 mg by mouth daily. Active albuterol sulfate HFA 108 (90 Base) MCG/ACT inhaler Inhale 2 puffs into the lungs every 6 (six) hours as needed for Wheezing. Active hydroxychloroqui ne 200 MG tablet Take 1 tablet (200 mg total) by mouth 2 (two) times a day. 0 Active arformoterol (BROVANA) 15 MCG/2ML Nebu Soln 2 mLs (15 mcg total) every 12 (twelve) hours. Active FARXIGA 10 MG Tab Take 1 tablet (10 mg total) by mouth every morning. 1 Active fluticasone propionate 50 MCG/ACT nasal spray 1 spray by Nasal route 2 (two) times a day. 1 Active methotrexate (TREXALL) 2.5 MG tablet Take 6 tablets by mouth once a week. 2 Active folic acid (FOLVITE) 1 MG tablet Take 1 tablet (1 mg total) by mouth daily. 2 Active metroNIDAZOLE (METROGEL) 0.75 % gel as needed. 3 Active budesonide (PULMICORT) 0.5 MG/2ML nebulizer solution Take 2 mLs (0.5 mg total) by nebulization 2 (two) times daily. 4 Active TRESIBA FLEXTOUCH 100 UNIT/ML Solution Pen-injector injection Inject 24 Units into the skin nightly at bedtime. 4 Active triamcinolone (KENALOG) 0.025 % cream as needed. 4 Active fexofenadine (VLAD) 180 MG tablet Take 1 tablet (180 mg total) by mouth daily. Active aspirin EC (ASPIRIN LOW DOSE) 81 MG tablet Take 1 tablet (81 mg total) by mouth daily. 90 tablet 3 4 Active metoprolol succinate ER (TOPROL-XL) 100 MG 24 hr tabletIndication s:Primary hypertension TAKE 1.5 TABLETS (150MG TOTAL) BY MOUTH DAILY 135 tablet 2 5 Active Glucosamine-Manuel droit-Vit C-Mn (GLUCOSAMINE CHONDROITIN COMPLX) Cap Take 1 capsule by mouth daily. Active montelukast (SINGULAIR) 10 MG tablet Take 1 tablet (10 mg total) by mouth every evening. Active chlorthalidone (HYGROTEN) 25 MG tabletIndication s:Essential hypertension TAKE 1/2 TABLET BY MOUTH EVERY DAY 45 tablet 2 5 Active KLOR-CON M20 20 MEQ tablet TAKE 1 TABLET BY MOUTH EVERY DAY 90 tablet 2 5 Active Active Problems Problem Noted Date Diagnosed Date Coronary artery calcification seen on CT scan Palpitations 10/08/2019 Syncope and collapse 08/21/2019 Current use of watermaster anticoagulation 020 Type 2 diabetes mellitus ([facility]) Rheumatoid arthritis ([facility]) Hypertension Hyperlipidemia Paroxysmal atrial fibrillation ([facility]) Asthma ([facility]) Family History Medical History Relation Comments Black lung Father COPD Father Diabetes Father Lung Cancer Father conduction system disease needing PPM Father Anxiety Mother Hyperlipidemia Mother Hypertension Mother Obsessive compulsive disorder Mother Osteoarthritis Mother Osteoporosis Mother Relation Status Comments Father Mother Social History Tobacco Use Types Packs/Day Years Used Date Smoking Tobacco: Never Smokeless Tobacco: Never Alcohol Use Standard Drinks/Week Comments Yes 0 (1 standard drink = 0.6 oz pure alcohol) 1-2 drinks every couple of months Sex and Gender Information Value Date Recorded Sex Assigned at Not on file Legal Sex Male 3:37 PM COMMUNICATIONS DIRECTOR Gender Identity Male 06/10/2021 11:48 AM COMMUNICATIONS DIRECTOR Sexual Orientation Straight 06/10/2021 11 :48 AM COMMUNICATIONS DIRECTOR Last Filed Vital Signs Vital Sign Reading Time Taken Comments Blood Pressure 124/82 08/08/2024 11:49 AM CDT Pulse 73 08/08/2024 11:49 AM CDT ekg Temperature 36.4 C (97.6 F) 01/20/2021 12:23 PM CDT Respiratory Rate 18 08/08/2024 11:49 AM CDT Oxygen Saturation 99% 08/08/2024 11:49 AM CDT Inhaled Oxygen Concentration - - Weight 80 kg (176 lb 6.4 oz) 08/08/2024 11:49 AM CDT Height 165.1 cm (5' 5) 08/08/2024 11:49 AM CDT Body Mass Index 29.35 08/08/2024 11:49 AM CDT Plan of Treatment Health Maintenance Due Date Last Done Comments ASCVD LDL 1945 ASCVD Statin 1945 Kidney Health Evaluation 1945 Lipid Panel 1945 Diabetes: Retinopathy Eye Exam 1965 Hepatitis C 1965 DTaP, Tdap and Td Vaccines ( 1 - Tdap) 1966 Pneumococcal Vaccine: 50+ Years (2 of 2 - PPSV23) 02/25/2016 12/31/2015 RSV Immunization or 60+ Years (1 - 1-dose 75+ series) 2022 Hemoglobin A1C 08/21/2023 02/20/2023, 01/17/2021 COVID-19 Vaccine (3 - 2023-2 5 season) 2023 08/31/2020, 08/03/2020 Zoster Vaccines Completed 04/06/2020, 12/24/2019, 02/18/2013 Meningococcal B Vaccine Aged Out No l onger eligible based on patient's age to complete this topic Meningococcal Vaccine Aged Out No hai herman eligible based on patient's age to complete this topic RSV Immunizations Under 20 Months Aged Out No longer eligible b ased on patient's age to complete this topic Medical Devices Implanted Type Area Clinical Nursing Manager Device Identifier Shelf Expiration Date Model / Serial / Lot Implantable Loop Recorder-Medtro warren Reveal Linq-10/21/2019 Implanted:Qty: 1 on 10/21/2019 by Eber Gonzalez MD Implantable Loop Recorder [employer] CARDIAC RHYTHM AND HEART FAILURE - DIV M [id number] / [id number] S / Procedures Procedure Name Priority Date/Time Associated Diagnosis Comments HEMOGLOBIN, GLYCOSYLATED Routine 01/17/2021 from Last 3 Months or Most Recently Relevant to Health Maintenance Results * HEMOGLOBIN, GLYCOSYLATED (01/17/2021) HGB A1C 8.0 <5.7 % 01/17/2021 Alex Farfan MD LABORATORY Final Result from Last 3 Months or Most Recently Relevant to Health Maintenance Insurance [facility] Care Teams Cargo Checker Relationship Specialty Start Date End Date Alex Farfan MD [address] [place] [address] PCP - General INTERNAL MEDICINE 06/17/19 Deonte Ly MD [address] [place] [address] INTERNAL MEDICINE 10/22/19 Bijan Gabriel MD [address] [place] [id number] Consulting Physician INTERNAL MEDICINE 06/03/20 Lindsey López, CHARGE LPN, DIRECTOR CARDIAC-C [address] [facility] [address] [place] [address] NURSE PRACTITIONER 06/03/20
== END 2024-11-17 07:52 | disposition home or self-care (01) ==
LOC: CHSIMG 07:53
PROVIDERS: PCP Internal Medicine; Visit Provider Orthopaedic Surgery
DX: S82.52XA Displaced fracture of medial malleolus of left tibia, initial encounter for closed fracture (principal)
CPT/HCPCS: 73610

== ENCOUNTER 2024-11-19 13:58 | Outpatient (RCR) | payer OTHER, SELFPAY ==
--- NOTE | 2024-11-19 15:03 | OPREHPOC ---
Outpatient Therapy Plan of Care This is a Multidisciplinary Plan of Care that may contain components documented by all disciplines (PT, OT, and ST.) PT Problem 1 PT Problem #1 Knowledge Deficit PT Goal 1 Goal / Goal Update The patient will be independent in a home exercise program. Target Visit 2 PT Problem 2 PT Problem #2 Pain PT Goal 1 Goal / Goal Update The patient will report no greater than 2/10 left ankle pain with return to full weight bearing without the boot and ambulation. Target Visit 8 PT Goal 2 Goal / Goal Update The patient will report no greater than 1/10 left ankle pain with return to PLOF. Target Visit 16 PT Problem 3 PT Problem #3 Impaired Functional Mobility PT Goal 1 Goal / Goal Update The patient will demonstrate 30% or less self perceived disability per the LEFS questionnaire. The patient will ambulate 600 feet or more during the 6 MWT with the least restrictive AD to improve community ambulation. The patient will ascend/descend stairs reciprocally. Target Visit 16 PT Problem 4 PT Problem #4 Impaired Range of Motion PT Goal 1 Goal / Goal Update The patient will improve left ankle dorsiflexion to at least 0 and plantarflexion to at least 40 degrees to improve gait mechanics. Target Visit 8 PT Problem 5 PT Problem #5 Impaired Strength PT Goal 1 Goal / Goal Update The patient will demonstrate 4/5 left ankle strength to improve gait and balance. Target Visit 16
--- NOTE | 2024-11-19 15:03 | PTOPEVAL1 ---
Assessment and note entered by Tashia Ocampo, PT Evaluation Information Assessment Status Evaluation Diagnosis L displaced medial malleolus fracture ICD-10 Condition Codes (PT) Pain in left ankle and joints of left foot M25.572 Other ICD-10 Condition Codes ( S82.52XA PT) Onset 10/14/24 Subjective Information Binh Herrera reports he fell off a ladder on 10/14/24 and hurt his left ankle. He went to the ER and after x-rays was diagnosed with a tibia fracture. He was put in a boot and was non-weight bearing initially. He saw Dr. Jurado on 11/17/24 and was told to start putting weight on it and wean out of the boot. He did not use an AD prior to the injury. He has a cane, a wheeled walker, and crutches at home. He is using hydrocodone 3 times a day for pain control due to pain at rest. He lives in a split level home with 6 stairs to the main level and 6 stairs to the basement. He is using a crutch and hand rail to navigate stairs one at a time. He has not performed stairs much and has not been leaving the house much since the injury. He has been using a knee scooter to get around in his home. He notes pain at rest still at times and has only tried putting a little weight on his left foot while in the boot to transfer to a chair or bed. Reported Pain Level Pain Score 3: Self Report Assessment PT Clinical Summary Binh Herrera presents 5 weeks s/p left displaced medial malleolus fracture. He is reporting difficulty with walking, standing, stair negotiation, and inability to perform house chores and projects. He has been using a knee scooter or wheelchair for locomotion and has not been putting weight on the left lower extremity. He objectively demonstrates decreased left foot and ankle AROM, decreased left foot and ankle strength , mild edema of the left foot and ankle, impaired gait, and impaired functional mobility. He will benefit from skilled PT to address these limitations and improve his daily function. Plan of Care Interventions Electrical Stimulation,Gait Training,Hot Pack/Cold Pack,Intermittent Compression Pump,Manual Therapy ,Neuro Re-education,Patient/Caregiver Education, Therapeutic Activities,Therapeutic Exercise PT Services Indicated Yes Treatment Frequency and 3 times per week for 8 visits then 2 times a week Duration for 8 visits for a total of 16 visits These treatments will address the objective and functional deficits as defined above. The patient will be advanced safely and appropriately in order for the patient to progress towards his/her prior level of function. Additional exercises will be introduced and as well as a comprehensive home exercise program upon discharge, if needed, ?to ensure carryover of functional gains achieved in the clinic. This treatment plan has been reviewed and agreement upon by the patient.
--- NOTE | 2025-01-08 14:40 | OPREHPOC ---
Outpatient Therapy Plan of Care This is a Multidisciplinary Plan of Care that may contain components documented by all disciplines (PT, OT, and ST.) PT Problem 1 PT Problem #1 Knowledge Deficit PT Goal 1 Goal / Goal Update The patient will be independent in a home exercise program. Target Visit 2 Progress Met PT Goal 2 Goal / Goal Update continue to progress Target Visit 24 PT Problem 2 PT Problem #2 Pain PT Goal 1 Goal / Goal Update The patient will report no greater than 2/10 left ankle pain with return to full weight bearing without the boot and ambulation. -continue Target Visit 24 Progress Partially Met PT Goal 2 Goal / Goal Update The patient will report no greater than 1/10 left ankle pain with return to PLOF. -continue Target Visit 24 Progress Not Met PT Problem 3 PT Problem #3 Impaired Functional Mobility PT Goal 1 Goal / Goal Update The patient will demonstrate 30% or less self perceived disability per the LEFS questionnaire. -not met The patient will ambulate 600 feet or more during the 6 MWT with the least restrictive AD to improve community ambulation. -met The patient will ascend/descend stairs reciprocally. -not met Target Visit 16 Progress Partially Met PT Goal 2 Goal / Goal Update continue 1 and 3 Target Visit 24 PT Problem 4 PT Problem #4 Impaired Range of Motion PT Goal 1 Goal / Goal Update The patient will improve left ankle dorsiflexion to at least 0 and plantarflexion to at least 40 degrees to improve gait mechanics. -continue Target Visit 8 Progress Partially Met PT Goal 2 Target Visit 24 PT Problem 5 PT Problem #5 Impaired Strength PT Goal 1 Goal / Goal Update The patient will demonstrate 4/5 left ankle strength to improve gait and balance. Target Visit 16 Progress Not Met PT Goal 2 Goal / Goal Update continue Target Visit 24
--- NOTE | 2025-01-08 14:40 | PTOPPROG ---
Assessment and note entered by Tashia Ocampo, PT Evaluation Information Assessment Status Progress Diagnosis L displaced medial malleolus fracture ICD-10 Condition Codes (PT) Pain in left ankle and joints of left foot M25.572 Other ICD-10 Condition Codes ( S82.52XA PT) Onset 10/14/24 Subjective Information Binh Herrera reports he fell off a ladder on 10/14/24 and hurt his left ankle. He went to the ER and after x-rays was diagnosed with a tibia fracture. He was put in a boot and was non-weight bearing initially. He saw Dr. Jurado on 11/17/24 and was told to start putting weight on it and wean out of the boot. He did not use an AD prior to the injury. He has a cane, a wheeled walker, and crutches at home. He is using hydrocodone 3 times a day for pain control due to pain at rest. He lives in a split level home with 6 stairs to the main level and 6 stairs to the basement. He is using a crutch and hand rail to navigate stairs one at a time. He has not performed stairs much and has not been leaving the house much since the injury. He has been using a knee scooter to get around in his home. He notes pain at rest still at times and has only tried putting a little weight on his left foot while in the boot to transfer to a chair or bed. Assessment PT Clinical Summary Binh Herrera has completed 16 skilled PT visits for s/p left displaced medial malleolus fracture. He is reporting improvements overall noting he can walk without a boot or brace with a cane, go up and down stairs one at a time, and do more daily activities on his own. 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 He objectively demonstrates improved left ankle ROM and strength, improved gait, and improved balance. Despite these improvements, he continues to have decreased left foot and ankle AROM, decreased left foot and ankle strength, mild edema of the left foot and ankle, impaired gait, and impaired functional mobility. He will continue to benefit from skilled PT to further address these limitations and improve his daily function. Plan of Care Interventions Gait Training,Neuro Re-education,Patient/Caregiver Education,Therapeutic Activities,Therapeutic Exercise PT Services Indicated Yes Treatment Frequency and Continue 2 times a week for 8 additional visits Duration These treatments will address the objective and functional deficits as defined above. The patient will be advanced safely and appropriately in order for the patient to progress towards his/her prior level of function. Additional exercises will be introduced and as well as a comprehensive home exercise program upon discharge, if needed, ?to ensure carryover of functional gains achieved in the clinic. This treatment plan has been reviewed and agreement upon by the patient.
--- NOTE | 2025-02-05 15:51 | OPREHPOC ---
Outpatient Therapy Plan of Care This is a Multidisciplinary Plan of Care that may contain components documented by all disciplines (PT, OT, and ST.) PT Problem 1 PT Problem #1 Knowledge Deficit PT Goal 1 Goal / Goal Update The patient will be independent in a home exercise program. Target Visit 2 Progress Met PT Goal 2 Goal / Goal Update continue to progress Target Visit 28 PT Problem 2 PT Problem #2 Pain PT Goal 1 Goal / Goal Update The patient will report no greater than 2/10 left ankle pain with return to full weight bearing without the boot and ambulation. Target Visit 24 Progress Met PT Goal 2 Goal / Goal Update The patient will report no greater than 1/10 left ankle pain with return to PLOF. -continue Target Visit 28 Progress Not Met PT Problem 3 PT Problem #3 Impaired Functional Mobility PT Goal 1 Goal / Goal Update The patient will demonstrate 30% or less self perceived disability per the LEFS questionnaire. -not met The patient will ambulate 600 feet or more during the 6 MWT with the least restrictive AD to improve community ambulation. -met The patient will ascend/descend stairs reciprocally. -met Target Visit 16 Progress Partially Met PT Goal 2 Goal / Goal Update continue 1 Target Visit 28 PT Problem 4 PT Problem #4 Impaired Range of Motion PT Goal 1 Goal / Goal Update The patient will improve left ankle dorsiflexion to at least 0 and plantarflexion to at least 40 degrees to improve gait mechanics. -met for dorsiflexion Target Visit 8 Progress Partially Met PT Goal 2 Goal / Goal Update New Goal: Patient will demonstrate 30 degrees left ankle plantarflexion. Target Visit 28 PT Problem 5 PT Problem #5 Impaired Strength PT Goal 1 Goal / Goal Update The patient will demonstrate 4/5 left ankle strength to improve gait and balance. -not met for plantarflexion, met for remainder Target Visit 16 Progress Not Met PT Goal 2 Goal / Goal Update continue Target Visit 28
--- NOTE | 2025-02-05 15:51 | PTOPPROG ---
Assessment and note entered by Tashia Ocampo, PT Evaluation Information Assessment Status Progress Diagnosis L displaced medial malleolus fracture ICD-10 Condition Codes (PT) Pain in left ankle and joints of left foot M25.572 Other ICD-10 Condition Codes ( S82.52XA PT) Onset 10/14/24 Subjective Information Binh Herrera reports his left ankle is improving overall. He still gets occasional pain just below his fracture site but it is becoming less frequent . He notes he is able to walk without an AD and was able to use the weedeater on his lawn without difficulty. He still hesitates on stairs when going down and takes them one at a time. Assessment PT Clinical Summary Bnih Herrera has completed 24 skilled PT visits for s/p left displaced medial malleolus fracture. He is reporting improvements overall noting he can walk without an AD and was able to perform some yard work recently as well. He still hesitates on descending stairs and takes them one at a time. He objectively demonstrates improved left ankle ROM and strength, improved gait, and improved balance. Despite these improvements, he continues to have decreased left foot and ankle AROM as well as decreased left foot and ankle strength. He will continue to benefit from skilled PT to further address these limitations and improve his daily function. Plan of Care Interventions Gait Training,Neuro Re-education,Patient/Caregiver Education,Therapeutic Activities,Therapeutic Exercise PT Services Indicated Yes Treatment Frequency and Continue 1 time a week for 4 additional visits Duration These treatments will address the objective and functional deficits as defined above. The patient will be advanced safely and appropriately in order for the patient to progress towards his/her prior level of function. Additional exercises will be introduced and as well as a comprehensive home exercise program upon discharge, if needed, ?to ensure carryover of functional gains achieved in the clinic. This treatment plan has been reviewed and agreement upon by the patient.
== END 2025-02-11 20:00 | disposition still patient (30) ==
LOC: CHSPT 13:58
PROVIDERS: Visit Provider Orthopaedic Surgery
DX: S82.52XA Displaced fracture of medial malleolus of left tibia, initial encounter for closed fracture (principal); M25.572 Pain in left ankle and joints of left foot
CPT/HCPCS: 97110; 97112; 97116; 97150; 97161; 97530; 97750

== ENCOUNTER 2024-12-02 14:00 | Outpatient (CLI) | payer OTHER, SELFPAY ==
[2024-12-02 14:16] LABS: Add Urine Microscopic? NO; Appearance Urine Clear (Clear); Glucose Urine UA 3+ (Negative); Leukocyte Esterase Ur Negative (Negative); Nitrate Urine Negative (Negative); Specific Grav Ur 1.025 (1.010-1.020)
[2024-12-02 14:20] LABS: Hematocrit 52.9 % (37.0-46.0); Hemoglobin 17.3 g/dL (12.4-15.3); Mean Corpuscular HGB Conc 32.7 g/dL (32-36); Mean Corpuscular Hemoglobin 30.5 pg (27.0-31.0); Mean Corpuscular Volume 93.3 fL (78.0-102.0); Platelet Count Result 187 K/mm3 (150-420); Red Blood Count 5.67 M/mm3 (4.70-6.10); White Blood Count 12.1 K/mm3 (4.8-10.8)
--- OUTSIDE RECORDS SUMMARY | 2024-12-02 14:28 | XMS_ITS | Encounter Summary ---
Author Organization [facility] Address [address] [place] [address] Care Team Providers Care Diversified Crops Farmworker Name Role Phone Alex Farfan MD Primary Care Provider [phone] Mark Guzmán MD Unavailable [phone] Eber Gonzalez MD Unavailable Unavailable Deonte Ly MD Unavailable [phone] Bijan Gabriel MD Unavailable Lindsey López APRN DYER HELPER-C Unavailable Micaela Rucker MD Unavailable [phone] Encounter Details Date Type Department Care Team (Late st Contact Info) Description 10/18/2022 MyChart Message Enc [facility] [address] [place] [address] [place] Provider Air Quality Message Social History Tobacco Use Types Packs/Day Years Used Date Smoking Tobacco: Never Smokeless Tobacco: Never Alcohol Use Standard Drinks/Week Comments Yes 0 (1 standard drink = 0.6 oz pure alcohol) 1-2 drinks every couple of months Sex and Gender Information Value Date Recorded Sex Assigned at Not on file Legal Sex Male 3:37 PM DISPLAY DIRECTOR Gender Identity Male 06/10/2021 11:48 AM DISPLAY DIRECTOR Sexual Orientation Straight 06/10/2021 11 :48 AM DISPLAY DIRECTOR documented as of this encounter Plan of Treatment Not on file documented as of this encounter Visit Diagnoses Not on filedocumented in this encounter Care Teams Diversified Crops Farmworker Relationship Specialty Start Date End Date Alex Farfan MD [address] [place] [address] PCP - General INTERNAL MEDICINE 06/17/19 Mark Guzmán MD [address] [place] [address] Consulting Physician CARDIOVASCULAR DISEASE 07/30/19 Eber Gonzalez MD [address] [place] [address] Consulting Physician CLINICAL CARDIAC ELECTROPHYSIOLOGY 10/08/19 11/12/24 Deonte Ly MD [address] [place], [place] [address] INTERNAL MEDICINE 10/22/19 Bijan Gabriel MD [address] [place] [address] Consulting Physician INTERNAL MEDICINE 06/03/20 Lindsey López APRN, DYER HELPER-C [address] [address] NURSE PRACTITIONER 06/03/20 Micaela Rucker MD [address] [address] INTERVENTIONAL CARDIOLOGY 12/08/2310/22 documented as of this encounter
--- OUTSIDE RECORDS SUMMARY | 2024-12-02 14:28 | XMS_ITS | Encounter Summary ---
Author Organization [facility] Address [address] [place] [address] Care Team Providers Care Surfacing Technician Name Role Phone Alex Farfan MD Primary Care Provider [phone] Mark Guzmán MD Unavailable Eber Gonzalez MD Unavailable Unavailable Deonte Ly MD Unavailable [phone] Bijan Gabriel MD Unavailable [phone] Lindsey López APRN KAYAKING INSTRUCTOR-C Unavailable Micaela Rucker MD Unavailable [phone] Encounter Details Date Type Department Care Team (Late st Contact Info) Description 01/19/2021 Abstract [facility] [address] [place] [address] Mark Guzmán MD [address] [place] [address] Social History Tobacco Use Types Packs/Day Years Used Date Smoking Tobacco: Never Smokeless Tobacco: Never Alcohol Use Standard Drinks/Week Comments Yes 0 (1 standard drink = 0.6 oz pure alcohol) 1-2 drinks every couple of months Sex and Gender Information Value Date Recorded Sex Assigned at Not on file Legal Sex Male 3:37 PM COMPRESSOR STATION CHIEF ENGINEER Gender Identity Male 06/10/2021 11:48 AM COMPRESSOR STATION CHIEF ENGINEER Sexual Orientation Straight 06/10/2021 11 :48 AM COMPRESSOR STATION CHIEF ENGINEER COVID-19 Exposure Response Date Recorded In the [...] PM CDT Taurus London RN Active * [place] Suicide Severity Rating Scale (Screener/Recent Self-Report) Question [...] S/P/B 0.5 0.2 - 1.2 01/17/2021 Result [facility] us Alex Farfan MD LABORATORY Final Result * ALBUMIN/GLOBULIN RATIO (01/17/2021) [facility] ALBUMIN/GLOBULI N RATIO 1.8 1.0 - 2.5 01/17/2021 Result [facility] us Alex Farfan MD LABORATORY Final Result * GLOBULIN (01/17/2021) [facility] GLOBULIN 2.3 1.9 - 3.7 01/17/2021 Result [facility] us Alex Farfan MD LABORATORY Final Result * ALBUMIN, SERUM (01/17/2021) [facility] ALBUMIN S/P/B 4.2 3.6 - 5.1 01/17/2021 Result [facility] us Alex Farfan MD LABORATORY Final Result * PROTEIN TOTAL (01/17/2021) [facility] TOTAL PROTEIN S/P/B 6.5 6.1 - 8.1 01/17/2021 Result [facility] us Alex Farfan MD LABORATORY Final Result * ALKALINE PHOSPHATASE (01/17/2021) [facility] ALKALINE PHOSPHATASE S/P/B 57 35 - 144 01/17/2021 Result [facility] us Alex Farfan MD LABORATORY Final Result * ALT (OUTSIDE LAB) (01/17/2021) [facility] ALT 20 9 - 46 01/17/2021 Result [facility] us Alex Farfan MD LAB-OUTSIDE/ABSTRACTED Final Re sult * AST (ABSTRACTED LAB) (01/17/2021) AST 14 10 - 35 01/17/2021 Alex Farfan MD LAB-OUTSIDE/ABSTRACTED Final Re sult * HEMOGLOBIN, GLYCOSYLATED (01/17/2021) HGB A1C 8.0 <5.7 % 01/17/2021 Alex Farfan MD LABORATORY Final Result documented in this encounter Visit Diagnoses Not on filedocumented in this encounter Care Teams Surfacing Technician Relationship Specialty Start Date End Date Alex Farfan MD [address] [place] [address] PCP - General INTERNAL MEDICINE 06/17/19 Mark Guzmán MD [address] [place] [address] Consulting Physician CARDIOVASCULAR DISEASE 07/30/19 Eber Gonzalez MD [address] [place] [address] Consulting Physician CLINICAL CARDIAC ELECTROPHYSIOLOGY 10/08/19 11/12/24 Deonte Ly MD [address] [place] [address] INTERNAL MEDICINE 10/22/19 Bijan Gabriel MD [address] [place] [address] Consulting Physician INTERNAL MEDICINE 06/03/20 Lindsey López APRN, KAYAKING INSTRUCTOR-C [address] [facility] [address] [place] [address] NURSE PRACTITIONER 06/03/20 Micaela Rucker MD [address] [address] INTERVENTIONAL CARDIOLOGY 12/08/2310/22 documented as of this encounter
--- OUTSIDE RECORDS SUMMARY | 2024-12-02 14:28 | XMS_ITS | Encounter Summary ---
Author Organization [facility] Address [address] [place] [address] Phone Care Team Providers Care Director Of Plant Operations Name Role Phone Alex Farfan MD Primary Care Provider [phone] Encounter Details Date Type Department Care Team (Late st Contact Info) Description 03/30/2023 Telephone [facility] Occupational Therapy [address] [facility] 6th [place] [address] [place] [address] Raza Felix, OT [address] [facility] [place] [address] Social History Tobacco Use Types Packs/Day Years [...] declined 08/01/2018 Social Connection and Isolation Panel Answer Date Recorded Frequency of Communication with Friends and Fami ly Patient declined 08/01/2018 Frequency of Social Gatherings with Friends and Family Patient declined 08/01/2018 Attends Nondenominational Services Patient declined 07/22 Active Member of Clubs or Organizations Patient declined 08/01/2018 Attends Club or Organization Meetings Patient de clined 08/01/2018 Marital Status Patient declined 08/01/2018 Overall Financial Resource Strain (CARDIA) Answe r Date Recorded Difficulty of Paying Living Expenses Patient dec lined 08/01/2018 [facility] [place] of Occupat ional Health - Occupational Stress [...] on file Legal Sex Male 9:56 AM BULB SORTER Gender Identity Male 12/07/2020 10:14 PM CDT Sexual Orientation Straight 12/07/2020 10 :14 PM CDT Occupation Industry Job Start Date Job End Date retired Not on file Not on file Not on file documented as of this encounter Plan of Treatment Not on file documented as of this encounter Visit Diagnoses Not on filedocumented in this encounter Care Teams Director Of Plant Operations Relationship Specialty Start Date End Date Alex Farfan MD PCP - General Internal Medicine 02/20/18 documented as of this encounter
--- OUTSIDE RECORDS SUMMARY | 2024-12-02 14:28 | XMS_ITS | Encounter Summary ---
Author Organization [facility] Address [address] [place] [address] Phone Care Team Providers Care Virginia Line Attendant Name Role Phone Alex Farfan MD Primary Care Provider Encounter Details Date Type Department Care Team (Late st Contact Info) Description 05/18/2021 Telephone [facility] Surgery [address] [place] [address] [address] [place] [address] Magali Chadwick Social History Tobacco [...] Friends and Family Patient declined 08/01/2018 Attends Latter Day Services Patient declined 07/22 Active Member of Clubs or Organizations Patient declined 08/01/2018 Attends Club or Organization Meetings Patient de clined 08/01/2018 Marital Status Patient declined 08/01/2018 Overall Financial Resource Strain (CARDIA) Answe r Date Recorded Difficulty of Paying Living Expenses Patient dec lined 08/01/2018 [facility] [place] of Occupat ional Health - Occupational Stress [...] on file Legal Sex Male 9:56 AM SENIOR INSPECTOR Gender Identity Male 12/07/2020 10:14 PM CDT Sexual Orientation Straight 12/07/2020 10 :14 PM CDT Occupation Industry Job Start Date Job End Date retired Not on file Not on file Not on file documented as of this encounter Plan of Treatment Not on file documented as of this encounter Visit Diagnoses Not on filedocumented in this encounter Care Teams Virginia Line Attendant Relationship Specialty Start Date End Date Alex Farfan MD PCP - General Internal Medicine 02/20/18 documented as of this encounter
--- OUTSIDE RECORDS SUMMARY | 2024-12-02 14:28 | XMS_ITS | Encounter Summary ---
Author Organization [facility] Address [address] [place] [address] Phone Care Team Providers Care Fish Net Stringer Name Role Phone Alex Farfan MD Primary Care Provider [phone] Encounter Details Date Type Department Care Team (Late st Contact Info) Description 03/30/2023 Documentation [facility] Occupational Therapy [address] [facility] 6th [place] [address] [place] [address] Raza Felix, OT [address] [facility] [address] [address] [place] [address] Social History Tobacco Use Types Packs/Day Years [...] Friends and Family Patient declined 08/01/2018 Attends Sikhism Services Patient declined 07/22 Active Member of Clubs or Organizations Patient declined 08/01/2018 Attends Club or Organization Meetings Patient de clined 08/01/2018 Marital Status Patient declined 08/01/2018 Overall Financial Resource Strain (CARDIA) Answe r Date Recorded Difficulty of Paying Living Expenses Patient dec lined 08/01/2018 [facility] [place] of Occupat ional Health - Occupational Stress [...] on file Legal Sex Male 9:56 AM WATERWORKS OPERATOR Gender Identity Male 12/07/2020 10:14 PM CDT Sexual Orientation Straight 12/07/2020 10 :14 PM CDT Occupation Industry Job Start Date Job End Date retired Not on file Not on file Not on file documented as of this encounter Plan of Treatment Not on file documented as of this encounter Visit Diagnoses Not on filedocumented in this encounter Care Teams Fish Net Stringer Relationship Specialty Start Date End Date Alex Farfan MD PCP - General Internal Medicine 02/20/18 documented as of this encounter
--- OUTSIDE RECORDS SUMMARY | 2024-12-02 14:28 | XMS_ITS | Clinical Summary ---
Author Organization [facility] Address [address] [place] [address] Phone Care Team Providers Care Electric Meter Installer Helper Name Role Phone Provider, None Primary Care [...] patient's age to complete this topic Insurance [facility] [place] [address] Care Teams Electric Meter Installer Helper Relationship Specialty Start Date End Date Provider, None MD PCP - General 11/29/18
--- OUTSIDE RECORDS SUMMARY | 2024-12-02 14:28 | XMS_ITS | Clinical Summary ---
Author Organization [facility] Address [address] [place] [address] Care Team Providers Care Chemical Research Worker Name Role Phone Alex Farfan MD Primary Care Provider [phone] Allergies Active Allergy Reactions Criticality Noted Date [...] (08/01/2018): Added automatically from request for surgery [id number] Severe persistent asthma 07/12/2018 Dupuytren contracture 03/08/2018 [...] (03/05/2018): Added automatically from request for surgery [id number] Immunizations Immunization Administration Dates Next Due Influenza, Trivalent, IM (MDV) 01/29/2014 Influenza, Unspecified 04/23/2012 Pneumococcal, Unspecified 04/23/2012 Surgical History Surgery Date Site/Laterality Comments DUPUYTREN CONTRACTURE RELEASE Bilateral multiple PILONIDAL CYST DRAINAGE Medical History Medical History Date Comments Asthma Diabetes type 2, controlled Hypertension Sjoegren syndrome Coronary artery calcification seen [...] Friends and Family Patient declined 08/01/2018 Attends Sabianist Services Patient declined 07/22 Active Member of Clubs or Organizations Patient declined 08/01/2018 Attends Club or Organization Meetings Patient de clined 08/01/2018 Marital Status Patient declined 08/01/2018 Overall Financial Resource Strain (CARDIA) Answe r Date Recorded Difficulty of Paying Living Expenses Patient dec lined 08/01/2018 [facility] [place] of Occupat ional Health - Occupational Stress [...] on file Legal Sex Male 9:56 AM ALLERGIST/PEDIATRIC PULMONOLOGIST Gender Identity Male 12/07/2020 10:14 PM CDT [...] copy faxed has been acknowledged. Queued to: [id number] Blood 02/20/2023 9:54 AM CDT 02/20/2023 9:54 AM CDT Tonya Metcalf MD LAB BLOOD ORDERABLES Final Resu lt [facility] [address] [place] [address] from Last 3 Months or Most Recently Relevant to Health Maintenance Insurance MEDICARE [facility] Address: [facility] [id number] [place] [phone] [employer] PPO MEDICARE [facility] Address: [address] [address] [place] [address] [facility] OPEN ACCESS [facility] MCR SUPPLEMENT MARY KAY HERNANDEZ [id number] Care Teams Chemical Research Worker Relationship Specialty Start Date End Date Alex Farfan MD PCP - General Internal Medicine 02/20/18
--- OUTSIDE RECORDS SUMMARY | 2024-12-02 14:28 | XMS_ITS | Encounter Summary ---
Author Organization [facility] Address [address] [place] [address] Care Team Providers Care Clothes Ironer Name Role Phone Alex Farfan MD Primary Care Provider [phone] Mark Guzmán MD Unavailable Eber Gonzalez MD Unavailable Unavailable Deonte Ly MD Unavailable [phone] Bijan Gabriel MD Unavailable [phone] Lindsey López APRN, MEDICAL INSURANCE CODER-C Unavailable Micaela Rucker MD Unavailable [phone] Encounter Details Date Type Department Care Team (Late st Contact Info) Description 08/13/2019 Abstract [facility] [address] [place] [address] Abstract, Doc [facility] Social History Tobacco Use Types Packs/Day Years Used Date Smoking Tobacco: Never Alcohol Use Standard Drinks/Week Comments Yes 0 (1 standard drink = 0.6 oz pure alcohol) 1-2 drinks every couple of months Sex and Gender Information Value Date Recorded Sex Assigned at Not on file Legal Sex Male 3:37 PM QUARTZ MINER Gender Identity Male 06/10/2021 11:48 AM QUARTZ MINER Sexual Orientation Straight 06/10/2021 11 :48 AM QUARTZ MINER COVID-19 Exposure Response Date Recorded In the [...] documented as of this encounter Care Teams Clothes Ironer Relationship Specialty Start Date End Date lAex Farfan MD [address] [place] [address] PCP - General INTERNAL MEDICINE 06/17/19 Mark Guzmán MD [address] [place] [address] Consulting Physician CARDIOVASCULAR DISEASE 07/30/19 Eber Gonzalez MD [address] [place] [address] Consulting Physician CLINICAL CARDIAC ELECTROPHYSIOLOGY 10/08/19 11/12/24 Deonte Ly MD [address] [place], [place] [address] INTERNAL MEDICINE 10/22/19 Bijan Gabriel MD [address] [place] [address] Consulting Physician INTERNAL MEDICINE 06/03/20 Lindsey López, MARY, MEDICAL INSURANCE CODER-C [address] [address] NURSE PRACTITIONER 06/03/20 Micaela Rucker MD [address] [address] INTERVENTIONAL CARDIOLOGY 12/08/2310/22 documented as of this encounter
--- OUTSIDE RECORDS SUMMARY | 2024-12-02 14:28 | XMS_ITS | Clinical Summary ---
Author Organization [facility] Address [address] [place] [address] Care Team Providers Care Metal Numerical Control Programmer Name Role Phone Alex Farfan MD Primary Care Provider Deonte Ly MD Unavailable [phone] Bijan Gabriel MD Unavailable Lindsey López WORM GROWER, CLAIM ANALYST-C Unavailable Allergies Active Allergy Reactions Criticality Noted [...] Syncope and collapse 08/21/2019 Current use of intermediate anticoagulation 020 Type 2 diabetes mellitus ([facility]) Rheumatoid arthritis ([facility] Hypertension Hyperlipidemia Paroxysmal atrial fibrillation ([facility]) Asthma ([facility]) Family History Medical History Relation Comments Black [...] on file Legal Sex Male 3:37 PM BROOMCORN SCRAPER Gender Identity Male 06/10/2021 11:48 AM BROOMCORN SCRAPER Sexual Orientation Straight 06/10/2021 11 :48 AM BROOMCORN SCRAPER Last Filed Vital Signs Vital Sign Reading [...] this topic Medical Devices Implanted Type Area Stair Builder Device Identifier Shelf Expiration Date Model / Serial / Lot Implantable Loop Recorder-Medtro warren Reveal Linq-10/21/2019 Implanted:Qty: 1 on 10/21/2019 by Eber Gonzalez MD Implantable Loop Recorder [employer] CARDIAC RHYTHM AND HEART FAILURE - DIV M [id number] / [id number] / Procedures Procedure Name Priority Date/Time Associated Diagnosis Comments HEMOGLOBIN, GLYCOSYLATED Routine 01/17/2021 from Last 3 Months or Most Recently Relevant to Health Maintenance Results * HEMOGLOBIN, GLYCOSYLATED (01/17/2021) HGB A1C 8.0 <5.7 % 01/17/2021 Alex Farfan MD LABORATORY Final Result from Last 3 Months or Most Recently Relevant to Health Maintenance Insurance [facility] Care Teams Metal Numerical Control Programmer Relationship Specialty Start Date End Date Alex Farfan MD [address] [place] [address] PCP - General INTERNAL MEDICINE 06/17/19 Deonte Ly MD [address] [place] [address] INTERNAL MEDICINE 10/22/19 Bijan Gabriel MD [address] [place] [address] Consulting Physician INTERNAL MEDICINE 06/03/20 Lindsey López, WORM GROWER, CLAIM ANALYST-C [address] [facility] [address] [place] [address] NURSE PRACTITIONER 06/03/20
[2024-12-02 14:37] LABS: Alanine Aminotransferase 69 U/L (6-50); Albumin Level 5.0 g/dL (3.5-5.1); Alkaline Phosphatase 68 U/L (38-126); Amylase 167 U/L (30-110); Anion Gap 9 mmol/L (4-12); Aspartate Amino Transferase 46 U/L (17-59); Bilirubin,Total 0.9 mg/dL (0.2-1.3); Blood Urea Nitrogen 27 mg/dL (9-20); Calcium 10.2 mg/dL (8.4-10.2); Carbon Dioxide 32 mmol/L (22-30); Chloride 97 mmol/L (98-107); Creatine Kinase 45 U/L (55-170); Estimated Glomerular Filt Rate > 60; Glucose 125 mg/dL (65-110); Lipase 220 U/L (23-300); Osmolality Calculated 292 mOsm/kg (285-295); Potassium 4.2 mmol/L (3.4-5.0); Sodium 138 mmol/L (137-145); Total Protein 7.7 g/dL (6.3-8.2)
[2024-12-02 14:49] LABS: NT Pro B Type Natriuretic Pept 113 pg/mL (19.9-100); Troponin I < 0.012 ng/mL (0.000-0.034)
== END 2024-12-02 14:01 | disposition home or self-care (01) ==
PROVIDERS: PCP Internal Medicine; Visit Provider Internal Medicine
DX: R07.9 Chest pain, unspecified (principal); R10.9 Unspecified abdominal pain; E13.8 Other specified diabetes mellitus with unspecified complications; N39.0 Urinary tract infection, site not specified
CPT/HCPCS: 36415; 80053; 81003; 82150; 82550; 82553; 83690; 83880; 84484; 85027; 85380; 87086

== ENCOUNTER 2024-12-08 07:54 | Outpatient (CLI) | payer OTHER, SELFPAY ==
--- NOTE | ~2024-12-08 | XR_ITS ---
EXAMINATION: XR ankle LT min 3V DATE: 12/08/2024 08:28 INDICATION: Displaced fracture medial malleolus. TECHNIQUE: 4 images of the left ankle were obtained COMPARISON: 11/17/2024 FINDINGS: Progressive, yet incomplete healing of the fracture of the medial malleolus. Alignment is grossly unc hanged. Soft tissue swelling about the left ankle. Talar dome is unremarkable. No new fracture. No dislocation. IMPRESSION: 1. Progressive, yet incomplete healing of the fracture of the medial malleolus. Alignment is grossly unchanged. Reviewed, dictated and finalized at location A.
--- OUTSIDE RECORDS SUMMARY | 2024-12-08 08:06 | XMS_ITS | Encounter Summary ---
Author Organization [facility] [employer] [facility] Address [address] [place] [address] Phone Care Team Providers Care Director Property Name Role Phone Alex Farfan MD Primary Care Provider [phone] Encounter Details Date Type Department Care Team (Late st Contact Info) Description 03/30/2023 Documentation [facility] Occupational Therapy [address] [facility] 6th [place] [address] [place] [address] Raza Felix, OT [address] [facility] [address] [address] Social History Tobacco Use Types Packs/Day Years [...] Friends and Family Patient declined 08/01/2018 Attends Tenriism Services Patient declined 07/22 Active Member of Clubs or Organizations Patient declined 08/01/2018 Attends Club or Organization Meetings Patient de clined 08/01/2018 Marital Status Patient declined 08/01/2018 Overall Financial Resource Strain (CARDIA) Answe r Date Recorded Difficulty of Paying Living Expenses Patient dec lined 08/01/2018 [facility] [place] of Occupat ional Health - Occupational Stress [...] on file Legal Sex Male 9:56 AM FLOOR WAXER Gender Identity Male 12/07/2020 10:14 PM CDT Sexual Orientation Straight 12/07/2020 10 :14 PM CDT Occupation Industry Job Start Date Job End Date retired Not on file Not on file Not on file documented as of this encounter Plan of Treatment Not on file documented as of this encounter Visit Diagnoses Not on filedocumented in this encounter Care Teams Director Property Relationship Specialty Start Date End Date Alex Farfan MD PCP - General Internal Medicine 02/20/18 documented as of this encounter
--- OUTSIDE RECORDS SUMMARY | 2024-12-08 08:06 | XMS_ITS | Continuity of Care Document ---
Author Organization [employer] [place] [place] Address [address] [facility] [address] Shirley [address] [place] [address] Phone Care Team Providers Care Back End Architect Name Role Phone Dereje KAMARA, Jael Unavailable [...] Diagnoses Date Provider Providers Copied on Encounter [facility] you [facility], [address] [place] [facility], [place], [place], [address], tel:[phone] SEC Francesco SHELLEY Professional Post-Op (chief complaint) Post op visit 5 Dereje ANH Elder. [facility] [address], [address], [place], [place], [address], [place]. tel:[phone] Raza Chowdhury MD.Referri ng Provider: Jeff Cedillo, [address] [facility] [address], [place], [address] . tel:[phone] [facility] and love and you [facility], [address] [address], [place], [place], [address], tel:[phone] SEC Francesco SHELLEY Professional 1 Day CE/IOL/Lens Ar/Toric PO (chief complaint) Post op visit 5 Dereje OD Jael. [address], [address], [place], [place], [address], [place]. tel:[phone] Raza Chowdhury MD.Referri ng Provider: Jeff Cedillo, [address] [facility] [address], [place], [address] . tel:[phone] [facility], [address] [place] [address], [place], [place], [address], [place] tel:[phone] [facility] No Information Sep- 0- 5 Lacy Gallagher. [address], [address], [place], [place], [address], [place]. tel:[phone] Referring Provider: Inocencia Sandra, [address] [place] [address] [employer] [address], [place], [address] . tel:[phone] [facility], [address] [place] [address] [address], [place], [place], [address], tel:[phone] SEC [place] Professional Post-Op (chief complaint) Post op visitDry eyes, bilateral August- 4-202 5 Dereje OD Jael. [address] [place] [address] [address], [address], [place], [place], [address], [place]. tel:[phone] Raza Chowdhury MD.Referri ng Provider: Jeff Cedillo, [address] [facility] [address], [place], [address] . tel:[phone] [facility], [address] [place] [address] [address], [place], [place], [address], [place] tel:[phone] SEC [place] Professional Emergency work in (chief complaint) Post op visitDry eyes, bilateral August-0 6-202 5 Marques Pro. [address] [place] [address] [employer] [address], [address], [place], [place], [address], [place]. tel:[phone] Raza Chowdhury MD.Referri ng Provider: Elliott Cedillo, [address] [place] [address], [place], [address] . tel:[phone] [facility], [address], [place], [place], [address], tel:[phone] SEC Francesco SHELLEY Professional Post-Op (chief complaint) Post op visit 5 Dereje KAMARA Jael. [address] [place], [place] [address]crest SP[address]H, [address], [place], [place], [address], . tel:[phone] Raza Chowdhury MD.Referri ng Provider: Jeff Cedillo, [address] [facility] [address], [place], [address] . tel:[phone] [facility], [facility] [employer] [address], [place], [place], [address], tel:[phone] [place] [facility] [place] No Information 5 Lacy Gallagher. [facility] [address], [address], [place], [place], [address], [place]. tel:[phone] Referring Provider: Elliott Cedillo, [facility] [place] [address], [place], [address] . tel:[phone] [facility], [facility] [employer] [address], [place], [place], [address], [place] tel:[phone] SEC [place] No Information 5 Lacy Gallagher. [facility] [address], [address], [place], [place], [address], [place]. tel:[phone] Office/outpa tient Visit, [facility] and you [facility], [facility] [employer] [address], [place], [place], [address], [place] tel:[phone] SEC Francesco SHELLEY Professional cataract check (chief complaint) Combined forms of age-related cataract of both eyesEpiretina l membrane (ERM), bilateralGlau comatous cupping of optic disc of both eyesIncreased corneal thickness of both eyesType 2 diab with mild nonp rtnop without macular edema, biCentral corneal opacity of right eye 5 Lacy Gallagher. [facility] [address], [address], [place], [place], [address], [place]. tel:[phone] Raza Chowdhury MD.Referri ng Provider: Jeff Cedillo, [address] [facility] [address], [place], [address] . tel:[phone] Office/outpa tient Visit, [facility] [place] [facility], [facility] [employer] [address], [place], [place], [address], [place] tel:[phone] SEC [place] Professional Cataract evaluation (chief complaint) Combined forms of age-related cataract, bilateralEpir etinal membrane (ERM), bilateralIncr eased corneal thickness of both eyesDeep retinal hemorrhage of right eyeType 2 diabetes mellitus without complications Regular astigmatism, bilateral 5 Lacy Gallagher. [facility] [address], [address], [place], [place], [address], [place]. tel:[phone] Raza Chowdhury MD.Referri ng Provider: Elliott Cedillo, [facility] [address], [place], [address] . tel:[phone] [facility], [facility] [employer] [address], [place], [place], [address], [place] tel:[phone] SEC [place] Professional Complete Exam (chief complaint) Long-term use of PlaquenilGlau coma suspect of both eyesType 2 diabetes mellitus without complication, without long-term current use of insulinCombin ed forms of age-related cataract of both eyes Oct- 4 Marques Pro. [facility] [employer] [address], [address], [place], [place], [address], [place]. tel:[phone] Specialist : Raza Chowdhury MD, [address] [place] [address], [address] . tel:[phone] erring Provider: [place], [address] [address] [place] [address], [place], [address] . tel:[phone] [facility], [address] [place] [address], [place], [place], [address], [place] tel:[phone] SEC Francesco SHELLEY Professional No Information Nov-2 3-202 4 Marques OD Inocencia. [address] [place] [address] [address], [address], [place], [place], [address], [place]. tel:[phone] Office/outpa tient Visit, [facility] [place], [address] [place] [address], [place], [place], [address], [place] tel:[phone] SEC Francesco SHELLEY Professional Glaucoma (chief complaint) Glaucomatous cupping of optic disc of both eyes Jun- 4-201 6 Amadeo Aguilar. [address], [facility] [place], [address], [place]. tel:[phone] Referring Provider: Jeff Cedillo, [address] [facility] A, [place], [address] . tel:[phone] [facility], [address] [place] [address], [place], [place], [address], [place] tel:[phone] SEC Francesco SHELLEY Professional Diabetic eye exam (chief complaint) Senile nuclear cataractOptic disc pathological cuppingDiabet es Sep-0 9-201 5 Amadeo Aguilar. [address], [place], [place], [address], [place]. tel:[phone] Referring Provider: Jeff Cedillo, [address], [place], [address] . tel:[phone] [facility], [address] [place] [address], [place], [place], [address], [place] tel:[phone] SEC Francesco SHELLEY Professional No Information Sep-0 1-201 5 Amadeo Aguilar. [address] [facility], [address], [place], [place], [address], [place]. tel:[phone] [facility], [address] [place] [address], [place], [place], [address], [place] tel:[phone] SEC Francesco KARSTEN Professional No Information 2 Amadeo Aguilar. [address] [facility], [address], [place], [place], [address], [place]. tel:[phone] Referring Provider: Jeff Childs Nguyen, [address] [facility] [address], [place], [address] . tel:[phone] Family History Family Member Type Diagnosis Age [...] taking hydroxychlorquine and states Dr. Chowdhury in [facility]. 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 DM letter sent to Dr Farfan. Follow up - Return i n 2 months with Jeff Childs M.D. for , IOP check. Assessments Type Assessment Date assessment Post op visit Patient Care Teams Name Effective Dates (start - stop) Status Members No Information
--- OUTSIDE RECORDS SUMMARY | 2024-12-08 08:06 | XMS_ITS | Encounter Summary ---
Author Organization [facility] [employer] of [facility] Address [address] [place] [address] Phone Care Team Providers Care Police Matron Name Role Phone Alex Farfan MD Primary Care Provider [phone] Encounter Details Date Type Department Care Team (Late st Contact Info) Description 03/30/2023 Telephone [facility] Occupational Therapy [address] [facility] 6th [place] [address] [place] [address] Raza Felix, OT [address] [facility] [address] [place] [address] Social History Tobacco Use Types Packs/Day Years [...] Friends and Family Patient declined 08/01/2018 Attends [employer] Services Patient declined 07/22 Active Member of Clubs or Organizations Patient declined 08/01/2018 Attends Club or Organization Meetings Patient de clined 08/01/2018 Marital Status Patient declined 08/01/2018 Overall Financial Resource Strain (CARDIA) Answe r Date Recorded Difficulty of Paying Living Expenses Patient dec lined 08/01/2018 [facility] [place] of Occupat ional Health - Occupational Stress [...] on file 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
--- OUTSIDE RECORDS SUMMARY | 2024-12-08 08:06 | XMS_ITS | Clinical Summary ---
Author Organization [facility] Address [address] [place] [address] Care Team Providers Care Optics Engineer Name Role Phone Alex Farfan MD Primary Care Provider [phone] Allergies Active Allergy Reactions Criticality Noted Date [...] (08/01/2018): Added automatically from request for surgery [id number] Severe persistent asthma 07/12/2018 Dupuytren contracture 03/08/2018 [...] (03/05/2018): Added automatically from request for surgery [id number] Immunizations Immunization Administration Dates Next Due Influenza, [...] Friends and Family Patient declined 08/01/2018 Attends Judaism Services Patient declined 07/22 Active Member of Clubs or Organizations Patient declined 08/01/2018 Attends Club or Organization Meetings Patient de clined 08/01/2018 Marital Status Patient declined 08/01/2018 Overall Financial Resource Strain (CARDIA) Answe r Date Recorded Difficulty of Paying Living Expenses Patient dec lined 08/01/2018 [facility] [place] of Occupat ional Health - Occupational Stress [...] on file 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 Queued to: [id number] Blood 02/20/2023 9:54 AM CDT 02/20/2023 9:54 AM CDT Tonya Metcalf MD LAB BLOOD ORDERABLES Final Resu lt [facility] [address] [place] [address] from Last 3 Months or Most Recently Relevant to Health Maintenance Insurance MEDICARE [employer] [facility] H[facility]PPO Address: [address] [address] [place] [address] MEDICARE Member Subscriber Plan / Payer (Ef fective 2011-Present) Name:Binh Herrera Member ID:[id number] Relation to Subscriber:Self Name:Binh Herrera Subscriber ID:[id number] Payer ID:[id number] Group ID:Not on file Type:MEDICARE [facility] Address: [address] [address] [place] [address] [facility] H[facility]/PPO Address: [address] [address] [place] [address] [employer]ALTH[employer] OPEN ACCESS [facility] MCR SUPPLEMENT MARY KAY HERNANDEZ [id number] Care Teams Optics Engineer Relationship Specialty Start Date End Date Alex Farfan MD PCP - General Internal Medicine 02/20/18
--- OUTSIDE RECORDS SUMMARY | 2024-12-08 08:06 | XMS_ITS | Clinical Summary ---
Author Organization [facility] Address [address] [place] [address] Phone Care Team Providers Care Merchandiser Seasonal Name Role Phone Provider, None Primary Care [...] patient's age to complete this topic Insurance [facility] business planning analyst Care Teams Merchandiser Seasonal Relationship Specialty Start Date End Date Provider, None ID PCP - General 11/29/18
--- OUTSIDE RECORDS SUMMARY | 2024-12-08 08:08 | XMS_ITS | Encounter Summary ---
Author Organization [facility] [employer] of [facility] Address [address] [place] [address] Phone Care Team Providers Care Pulp Grinder And Blender Name Role Phone Alex Farfan MD Primary Care Provider Encounter Details Date Type Department Care Team (Late st Contact Info) Description 05/18/2021 Telephone [facility] Surgery [address] [place] [address] [address] [place] [address] Magali Chadwick Social History Tobacco [...] Friends and Family Patient declined 08/01/2018 Attends Evangelical Services Patient declined 07/22 Active Member of Clubs or Organizations Patient declined 08/01/2018 Attends Club or Organization Meetings Patient de clined 08/01/2018 Marital Status Patient declined 08/01/2018 Overall Financial Resource Strain (CARDIA) Answe r Date Recorded Difficulty of Paying Living Expenses Patient dec lined 08/01/2018 [facility] [place] of Occupat ional Health - Occupational Stress [...] on file 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
== END 2024-12-08 07:55 | disposition home or self-care (01) ==
LOC: CHSIMG 07:56
PROVIDERS: PCP Internal Medicine; Visit Provider Orthopaedic Surgery
DX: S82.52XD Displaced fracture of medial malleolus of left tibia, subsequent encounter for closed fracture with routine healing (principal)
CPT/HCPCS: 73610

== ENCOUNTER 2024-12-09 08:39 | Outpatient (CLI) | payer OTHER, SELFPAY ==
--- OUTSIDE RECORDS SUMMARY | 2024-10-15 06:15 | XMS_ITS | Continuity of Care Document ---
Author Organization [facility] [place] Address [address] [facility] [place] [address] Phone Care Team Providers Care Geomagnetician Name Role Phone Dereje KAMARA, Jael Unavailable [...] Diagnoses Date Provider Providers Copied on Encounter [facility], [address] [place]Allen[place] [facility], [place], [place], [address], tel:[phone] SEC Francesco SHELLEY Professional Post-Op (chief complaint) Post op visit 5 Dereje ANH Elder. [facility] [employer], [address], [place], [place], [address], [place]. tel:[phone] Raza Chowdhury MD.Referri ng Provider: Jeff Cedillo, [address] [facility] [address], [place], [address] . tel:[phone] [facility], [address], [place], [place], [address], tel:[phone] SEC Francesco SHELLEY Professional 1 Day CE/IOL/Lens Ar/Toric PO (chief complaint) Post op visit 5 Dereje OD Jael. [address] [employer], [address], [place], [place], [address], [place]. tel:[phone] Raza Chowdhury MD.Referri ng Provider: Jeff Cedillo, [address] [facility] [address], [place], [address] . tel:[phone] [facility], [address] [place] [address], [place], [place], [address], [place] tel:[phone] [facility] No Information Sep- 0- 5 Lacy Gallagher. [address] [place] [employer], [address], [place], [place], [address], [place]. tel:[phone] Referring Provider: Inocencia Snadra, [address] [place] [address] [employer] [address], [place], [address] . tel:[phone] [facility], [address] [place] [address] [address], [place], [place], [address], tel:[phone] SEC [place] Professional Post-Op (chief complaint) Post op visitDry eyes, bilateral August- 4-202 5 Dereje OD Jael. [address] [place] [address] [employer], [address], [place], [place], [address], [place]. tel:[phone] Raza Chowdhury MD.Referri ng Provider: Jeff Cedillo, [address] [facility] [address], [place], [address] . tel:[phone] [facility], [address] [place] [address] [address], [place], [place], [address], [place] tel:[phone] SEC [place] Professional Emergency work in (chief complaint) Post op visitDry eyes, bilateral August-0 6-202 5 Marques Pro. [address] [place] [address] [employer], [address], [place], [place], [address], [place]. tel:[phone] Raza Chowdhury MD.Referri ng Provider: Elliott Cedillo, [address] [place] [address], [place], [address] . tel:[phone] [facility] [facility], [address], [place], [place], [address], tel:[phone] SEC Francesco SHELLEY Professional Post-Op (chief complaint) Post op visit 5 Dereje KAMARA Jael. [address] [place], [place] [address]crest [employer], [address], [place], [place], [address], . tel:[phone] Raza Chowdhury MD.Referri ng Provider: Jeff Cedillo, [address], [place], [address] . tel:[phone] [facility], [facility] [address], [place], [place], [address], tel:[phone] [facility] No Information 5 Lacy Gallagher. [facility] [employer], [address], [place], [place], [address], [place]. tel:[phone] Referring Provider: Elliott Cedillo, [facility] [place] [employer] [address], [place], [address] . tel:[phone] [facility], [facility] [employer], [place], [place], [address], [place] tel:[phone] SEC [place] No Information 5 Lacy Gallagher. [facility] [employer], [address], [place], [place], [address], [place]. tel:[phone] Office/outpa tient Visit, Est [facility], [facility] [address], [place], [place], [address], [place] tel:[phone] SEC Francesco SHELLEY Professional cataract check (chief complaint) Combined forms of age-related cataract of both eyesEpiretina l membrane (ERM), bilateralGlau comatous cupping of optic disc of both eyesIncreased corneal thickness of both eyesType 2 diab with mild nonp rtnop without macular edema, biCentral corneal opacity of right eye 5 Lacy Gallagher. [facility] [employer], [address], [place], [place], [address], [place]. tel:[phone] Raza Chowdhury MD.Referri ng Provider: Jeff Cedillo, [address], [place], [address] . tel:[phone] Office/outpa tient Visit, [facility] [address], [place], [place], [address], [place] tel:[phone] SEC [place] Professional Cataract evaluation (chief complaint) Combined forms of age-related cataract, bilateralEpir etinal membrane (ERM), bilateralIncr eased corneal thickness of both eyesDeep retinal hemorrhage of right eyeType 2 diabetes mellitus without complications Regular astigmatism, bilateral 5 Lacy Gallagher. [facility] [employer], [address], [place], [place], [address], [place]. tel:[phone] Raza Chowdhury MD.Referri ng Provider: Elliott Cedillo, [facility] [employer] [address], [place], [address] . tel:[phone] [facility], [facility] [address], [place], [place], [address], [place] tel:[phone] [place] Professional Complete Exam (chief complaint) Long-term use of PlaquenilGlau coma suspect of both eyesType 2 diabetes mellitus without complication, without long-term current use of insulinCombin ed forms of age-related cataract of both eyes Oct- 4 Marques Pro. [facility] [employer], [address], [place], [place], [address], [place]. tel:[phone] Specialist : Raza Chowdhury MD, [address] [place] [address], [address] . tel:[phone] erring Provider: [place], [address] [place] [address], [place], [address] . tel:[phone] [facility], [address] [place] [address], [place], [place], [address], [place] tel:[phone] SEC Francesco SHELLEY Professional No Information Nov-2 3-202 4 Marques OD Inocencia. [address] [place] [address] Dri, [address], [place], [place], [address], [place]. 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 [address], [facility] [place], [address], [place]. tel:[phone] Referring Provider: Jeff Cedillo, [address] [facility] A, [place], [address] . tel:[phone] [facility], [address] [place] [address], [place], [place], [address], [place] tel:[phone] SEC Francesco SHELLEY Professional Diabetic eye exam (chief complaint) Senile nuclear cataractOptic disc pathological cuppingDiabet es Sep-0 9-201 5 Amadeo Aguilar. [address], [place], [place], [address], [place]. tel:[phone] Referring Provider: Jeff Cedillo, [address], [place], [address] . tel:[phone] [facility], [address] [place] [address], [place], [place], [address], [place] tel:[phone] SEC Francesco SHELLEY Professional No Information Sep-0 1-201 5 Amadeo Aguilar. [address] [facility], [address], [place], [place], [address], [place]. tel:[phone] [facility], [address] [place] [address], [place], [place], [address], [place] tel:[phone] SEC Francesco KARSTEN Professional No Information 2 Amadeo Aguilar. [address] [facility], [address], [place], [place], [address], [place]. tel:[phone] Referring Provider: Jeff Childs Nguyen, [address] [facility] [address], [place], [address] . tel:[phone] Family History Family Member Type Diagnosis Age At Onset Father Problem (finding) diabetes mellitus type 2 Payers Payer name Insurance type Covered constitution party ID Authoriza tion(s) No Information Social [...] taking hydroxychlorquine and states Dr. Chowdhury in [facility]. 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 DM letter sent to Dr Farfan. Follow up - Return i n 2 months with Jeff Childs M.D. for , IOP check. Assessments Type Assessment Date assessment Post op visit Patient Care Teams Name Effective Dates (start - stop) Status Members No Information
--- NOTE | ~2024-12-09 | CT_ITS ---
CT of the Abdomen and Pelvis: Indication: Abdominal pain, abnormal LFTs Technique: 2.5 mm axial scans were obtained through the abdomen and pelvis following intravenous administration of 100 cc of Omnipaque 350. Dose reduction technique was used on this scan by utilizing automated exposure control and iterative reconstruction technique. The dose-length product (DLP) was 460.66 mGy-cm. Findings: Scans through the lung bases are unremarkable. The liver, spleen, pancreas, gallbladder, adrenals and kidneys are within normal limits. No evidence of aortic aneurysm. No lymphadenopathy. No bowel obstruction or bowel wall thickening. There is no evidence to suggest acute appendicitis. Images through the pelvis were performed. Urinary bladder unremarkable. No pelvic mass seen. No ascites. No ascites. Impression: No significant abnormalities seen. Reviewed, dictated and finalized at [facility]. Impression: No significant abnormalities seen.
--- OUTSIDE RECORDS SUMMARY | 2024-12-09 08:59 | XMS_ITS | Clinical Summary ---
Author Organization [facility] Address [address] [place] [address] Care Team Providers Care Cycle Manager Name Role Phone Alex Farfan MD Primary Care Provider Allergies Active Allergy Reactions Criticality Noted Date [...] (08/01/2018): Added automatically from request for surgery [id number] Severe persistent asthma 07/12/2018 Dupuytren contracture 03/08/2018 [...] (03/05/2018): Added automatically from request for surgery [id number] Immunizations Immunization Administration Dates Next Due Influenza, [...] Paying Living Expenses Patient dec lined 08/01/2018 [facility] [place] of Occupat ional Health - Occupational Stress [...] on file 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 Queued to: [id number] Blood 02/20/2023 9:54 AM CDT 02/20/2023 9:54 AM CDT Tonya Metcalf MD LAB BLOOD ORDERABLES Final Resu lt [facility] [address] [place] [address] from Last 3 Months or Most Recently Relevant to Health Maintenance Insurance MEDICARE [facility] Address: [facility] [id number] [place] [address] [employer] PPO MEDICARE [facility] Address: [address] [address] [place] [address] [facility] HEALTHLINK OPEN ACCESS [facility] MCR SUPPLEMENT MARY KAY HERNANDEZ [id number] Care Teams Cycle Manager Relationship Specialty Start Date End Date Alex Farfan MD PCP - General Internal Medicine 02/20/18
--- OUTSIDE RECORDS SUMMARY | 2024-12-09 08:59 | XMS_ITS | Encounter Summary ---
Author Organization [facility] [employer] [facility] Address [address] [place] [address] Phone Care Team Providers Care All Round Butcher Name Role Phone Alex Farfan MD Primary Care Provider [phone] Encounter Details Date Type Department Care Team (Late st Contact Info) Description 05/18/2021 Telephone [facility] Surgery [address] [place] [address] [address] [place] [address] Magali Chadwick Social History Tobacco [...] Friends and Family Patient declined 08/01/2018 Attends Baptist Services Patient declined 07/22 Active Member of Clubs or Organizations Patient declined 08/01/2018 Attends Club or Organization Meetings Patient de clined 08/01/2018 Marital Status Patient declined 08/01/2018 Overall Financial Resource Strain (CARDIA) Answe r Date Recorded Difficulty of Paying Living Expenses Patient dec lined 08/01/2018 [facility] [place] of Occupat ional Health - Occupational Stress [...] on file 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
--- OUTSIDE RECORDS SUMMARY | 2024-12-09 08:59 | XMS_ITS | Encounter Summary ---
Author Organization [facility] [employer] [facility] Address [address] [place] [address] Phone Care Team Providers Care Passenger Interline Clerk Name Role Phone Alex Farfan MD Primary Care Provider [phone] Encounter Details Date Type Department Care Team (Late st Contact Info) Description 03/30/2023 Telephone [facility] Occupational Therapy [address] [facility] 6th [place] [address] [place] [address] Raza Felix, OT [address] [facility] [address] [address] Social History Tobacco Use Types Packs/Day Years [...] Friends and Family Patient declined 08/01/2018 Attends Moravian Services Patient declined 07/22 Active Member of Clubs or Organizations Patient declined 08/01/2018 Attends Club or Organization Meetings Patient de clined 08/01/2018 Marital Status Patient declined 08/01/2018 Overall Financial Resource Strain (CARDIA) Answe r Date Recorded Difficulty of Paying Living Expenses Patient dec lined 08/01/2018 [facility] [place] of Occupat ional Health - Occupational Stress [...] on file 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
--- OUTSIDE RECORDS SUMMARY | 2024-12-09 08:59 | XMS_ITS | Encounter Summary ---
Author Organization [facility] [employer] [facility] Address [address] [place] [address] Phone Care Team Providers Care Director Loss Prevention Name Role Phone Alex Farfan MD Primary Care Provider [phone] Encounter Details Date Type Department Care Team (Late st Contact Info) Description 03/30/2023 Documentation [facility] Occupational Therapy [address] [facility] 6[address] [place] [address] Raza Felix, OT [address] [facility] [address] [place] [address] Social History Tobacco Use Types Packs/Day Years [...] Friends and Family Patient declined 08/01/2018 Attends Voodoo Services Patient declined 07/22 Active Member of Clubs or Organizations Patient declined 08/01/2018 Attends Club or Organization Meetings Patient de clined 08/01/2018 Marital Status Patient declined 08/01/2018 Overall Financial Resource Strain (CARDIA) Answe r Date Recorded Difficulty of Paying Living Expenses Patient dec lined 08/01/2018 [facility] [place] of Occupat ional Health - Occupational Stress [...] on file 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
--- OUTSIDE RECORDS SUMMARY | 2024-12-09 08:59 | XMS_ITS | Clinical Summary ---
Author Organization [facility] Address [address] [place] [address] Phone Care Team Providers Care Microbiology Director Name Role Phone Provider, None Primary Care [...] age to complete this topic Insurance [facility] heel top lift splitter Care Teams Microbiology Director Relationship Specialty Start Date End Date Provider, None [place] PCP - General 11/29/18
== END 2024-12-09 08:40 | disposition home or self-care (01) ==
LOC: CHSIMG 08:41
PROVIDERS: PCP Internal Medicine; Visit Provider Internal Medicine
DX: R10.13 Epigastric pain (principal); R94.5 Abnormal results of liver function studies
CPT/HCPCS: 74177; Q9967

== ENCOUNTER 2024-12-14 10:14 | Emergency (ER) | payer OTHER, SELFPAY ==
--- OUTSIDE RECORDS SUMMARY | 2024-10-15 06:15 | XMS_ITS | Continuity of Care Document ---
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 - Active polymyxin B sulfate 10,000 unit-trimethoprim 1 mg/mL eye drops instill 1 drop by ophthalmic route in the operated eye 4 times a day for 1 week; to begin after being seen in the office for first post op visit. - Active prednisolone acetate 1 % eye drops,suspension Instill 1 drop into operated eye 4 times a day for 2 weeks, then 2 times a day for 2 weeks; to begin after being seen in the office for first post op visit. - Active fexofenadine 180 mg tablet take 1 tablet by oral route every day 180 MG - Active montelukast 10 mg tablet take 1 tablet b y oral route every day in the evening 10 MG - Active Glucosamine Chondroitin 550 mg-30 mg-1 mg capsule take 1 capsule by oral route every day 1 capsule - Active Trexall 5 mg tablet take 1 tablet by oral route every week 5 MG - Active hydroxychloroquine 200 mg tablet take 1 tablet by oral route 2 times every day 200 MG - Active Farxiga 10 mg tablet take 1 tablet by oral route every day in the morning 10 MG - Active chlorthalidone 25 mg tablet take 1 tablet by oral route every day 25 MG - Active albuterol sulfate 2.5 mg/3 mL (0.083 %) solution for nebulization inhale 3 milliliter by nebulization route 3 times every day 2.5 MG - Active magnesium 400 mg ORAL TABLET - Active Tresiba U-100 Insulin 100 unit/mL subcutaneous solution inject by subcutaneous route as per insulin protocol 0.00 - Active Tumeric/Curcumin ORAL CAPSULE - Active Eliquis 5 mg tablet take 1 tablet by oral route 2 times every day 5 MG - Active Klor-Con 10 mEq tablet,extended release take 1 tablet by oral route every day with food 10 MEQ - Active Ortikos 6 mg capsule,extended release take 1 capsule by oral route every day 6 MG - Active Brovana 15 mcg/2 mL solution for nebulization inhale 2 milliliter by inhalation route 2 times every day 15 MCG - Active simvastatin 5 mg tablet take 1 tablet by oral route every day in the evening 5 MG - Active terazosin 10 mg capsule take 1 capsule b y oral route every day at bedtime 10 MG - Active Procedures Procedure Date No Charge Refraction Post-op Follow-up Visit Post-op Follow-up Visit Laser Cataract SX With Toric Lens Remove Cataract, Insert Lens No Charge Refraction Post-op Follow-up Visit Post-op Follow-up Visit Post-op Follow-up Visit Laser Cataract SX With Toric Lens Remove Cataract, Insert Lens No Charge Refraction Apr-16-2025 Fundus Photography W/ Report Office/outpatient Visit, Est SCODI, Retina No Charge Optomap Fundus Photos 025 No Charge Refraction Corneal Topography Office/outpatient Visit, Est IOLMaster IOLMaster Visual Field Examination(s) Refraction No Charge GDX Posterior Segment Oct-02-22 024 SCODI, Retina No Charge Optomap Fundus Photos Jan-02-22 024 Eye Exam, New Patient Visual Field Examination(s) Corneal Pachymetry Office/outpatient Visit, Est Eye Exam, New Patient Eye Exam, New Patient Advance Directives Directive Yes / No Effective Date File Name No Information Encounters Encounter Description Practice Location Reason(s) For Visit Diagnoses Date Provider Providers Copied on [facility], [address] [facility] [address] [place], [place], [address], tel:[phone] SEC Francesco SHELLEY Professional Post-Op (chief complaint) Post op visit 5 Dereje ANH Elder. [facility] [address], [address], [place], [place], [address], [place]. tel:[phone] Raza Chowdhury MD.Referri ng Provider: Jeff Cedillo, [address] [facility] [address], [place], [address] . tel:[phone] [facility], [address], [place], [place], [address], tel:[phone] SEC Francesco SHELLEY Professional 1 Day CE/IOL/Lens Ar/Toric PO (chief complaint) Post op visit 5 Dereje OD Jael. [address], [address], [place], [place], [address], [place]. tel:[phone] Raza Chowdhury MD.Referri ng Provider: Jeff Cedillo, [address] [facility] [address], [place], [address] . tel:[phone] [facility], [address], [place], [place], [address], [place] tel:[phone] [facility] No Information Sep- 0- 5 Lacy Gallagher. [address], [address], [place], [place], [address], [place]. tel:[phone] Referring Provider: Inocencia Sandra, [address] [place] [address] [address], [place], [address] . tel:[phone] [facility], [address] [place] [address] [address], [place], [place], [address], tel:[phone] SEC [place] Professional Post-Op (chief complaint) Post op visitDry eyes, bilateral August- 4-202 5 Dereje OD Jael. [address] [place] [address] [employer], [address], [place], [place], [address], [place]. tel:[phone] Raza Chowdhury MD.Referri ng Provider: Jeff Cedillo, [address] [facility] [address], [place], [address] . tel:[phone] [facility], [address] [place] [address] [address], [place], [place], [address], [place] tel:[phone] [place] Professional Emergency work in (chief complaint) Post op visitDry eyes, bilateral August-0 6-202 5 Marques Pro. [address] [place] [address] [address], [address], [place], [place], [address], [place]. tel:[phone] Raza Chowdhury MD.Referri ng Provider: Elliott Cedillo, [address] [place] [address], [place], [address] . tel:[phone], [address], [place], [place], [address], tel:[phone] SEC Francesco SHELLEY Professional Post-Op (chief complaint) Post op visit 5 Dereje KAMARA Jael. [address] [place], [place] [address]crest [employer], [address], [place], [place], [address], . tel:[phone] Raza Chowdhury MD.Referri ng Provider: Jeff Cedillo, [address] [facility] [address], [place], [address] . tel:[phone] [facility], [facility] [address], [place], [place], [address], tel:[phone] [place] [facility] [place] No Information 5 Lacy Gallagher. [facility] [address], [address], [place], [place], [address], [place]. tel:[phone] Referring Provider: Elliott Cedillo, [facility] [place] [employer], [place], [address] . tel:[phone] [facility], [facility] [address], [place], [place], [address], [place] tel:[phone] SEC [place] No Information 5 Lacy Gallagher. [facility] [address], [address], [place], [place], [address], [place]. tel:[phone] Office/outpa tient Visit, Est [facility], [facility] [address], [place], [place], [address], [place] tel:[phone] SEC Francesco SHELLEY Professional cataract check (chief complaint) Combined forms of age-related cataract of both eyesEpiretina l membrane (ERM), bilateralGlau comatous cupping of optic disc of both eyesIncreased corneal thickness of both eyesType 2 diab with mild nonp rtnop without macular edema, biCentral corneal opacity of right eye 5 Lacy Gallagher. [facility] [address], [address], [place], [place], [address], [place]. tel:[phone] Raza Chowdhury MD.Referri ng Provider: Jeff Cedillo, [address] [facility] [address], [place], [address] . tel:[phone] [place]/outpa [place]ient Visit, [facility] [address], [place], [place], [address], [place] tel:[phone] SEC [place] Professional Cataract evaluation (chief complaint) Combined forms of age-related cataract, bilateralEpir etinal membrane (ERM), bilateralIncr eased corneal thickness of both eyesDeep retinal hemorrhage of right eyeType 2 diabetes mellitus without complications Regular astigmatism, bilateral 5 Lacy Gallagher. [facility] [address], [address], [place], [place], [address], [place]. tel:[phone] Raza Chowdhury MD.Referri ng Provider: Elliott Cedillo, [facility] [address], [place], [address] . tel:[phone] [facility], [facility] [address], [place], [place], [address], [place] tel:[phone] SEC [place] Professional Complete Exam (chief complaint) Long-term use of PlaquenilGlau coma suspect of both eyesType 2 diabetes mellitus without complication, without long-term current use of insulinCombin ed forms of age-related cataract of both eyes Oct- 4 Marques Pro. [facility] [address], [address], [place], [place], [address], [place]. tel:[phone] Specialist : Raza Chowdhury MD, [address] [place] [address], [address] . tel:[phone] erring Provider: [place], [address], [place], [address] . tel:[phone] [facility], [address], [place], [place], [address], [place] tel:[phone] SEC Francesco SHELLEY Professional No Information Nov-2 3-202 4 Marques OD Inocencia. [address] [place] [address] [address], [address], [place], [place], [address], [place]. 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 [address], [facility] [place] [place] [address], [place]. tel:[phone] Referring Provider: Jeff Cedillo, [address] [facility] [address], [place], [address] . tel:[phone] [facility], [address], [place], [place], [address], [place] tel:[phone] SEC Francesco SHELLEY Professional Diabetic eye exam (chief complaint) Senile nuclear cataractOptic disc pathological cuppingDiabet es Sep-0 9-201 5 Amadeo Aguilar. [address], [place], [place], [address], [place]. tel:[phone] Referring Provider: Jeff Cedillo, [address], [place], [address] . tel:[phone] [facility], [address], [place], [place], [address], [place] tel:[phone] SEC Francesco SHELLEY Professional No Information Sep-0 1-201 5 Amadeo Aguilar. [address] [facility], [address], [place], [place], [address], [place]. tel:[phone] [facility], [address], [place], [place], [address], [place] tel:[phone] SEC Francesco KARSTEN Professional No Information 2 Amadeo Aguilar. [address] [facility], [address], [place], [place], [address], [place]. tel:[phone] Referring Provider: Jeff Childs Nguyen, [address] [facility] [address], [place], [address] . tel:[phone] Family History Family Member Type Diagnosis Age At Onset Father Problem (finding) diabetes mellitus type 2 Payers Payer name Insurance type Covered alliance party ID Authoriza tion(s) No Information Social History Type Description Quantity Date Captured Comments Alcohol Use Details Caffeine Use Details Tobacco Use Status Current non-smoker Smoking Status Never smoker Sex Male Chief Complaint And Reason For Visit From encounter dated '10/15/2024 11:15'. Post-Op (chief complaint). Description: The 79 year old patient presents for a 2 week post op CE with Toric IOL OD. Patient is using drops as directed. Patient states OD is doing good. Patient had a fall yesterday from a ladder and has a broken ankle. Reason For Referral Reason For Referral No Information Plan Of Treatment Date Type Action Status Appointment Binh Herrera BOOKED History Of Present Illness Encounter Date Complaint History Of Prese nt Illness Post-Op The 79 year old patient presents for a 2 week post op CE with Toric IOL OD. Patient is using drops as directed. Patient states OD is doing good. Patient had a fall yesterday from a ladder and has a broken ankle. 1 Day CE/IOL/LensAr/Toric PO The 79 year old patient presents for evaluation of 1 Day CE/IOL/LensAR/Toric PO in the right eye. Pt states there seems to be a little discomfort around OD and pt states that vision seems a little better and brighter than before. Pt has all gtts and understands how to take them as instructed. Post-Op The 79 year old patient presents for a 2 week post op CE with Toric IOL OS. Patient is using drops as directed. Patient states OS is doing good. Patient wishes to proceed with CE OD. Patient is bothered by oncoming headlights at night and has a hard time seeing road signs. Emergency work in The 79 year ol d patient presents for evaluation of Emergency work in in the left eye. Pt states his left eye has become more red. It itches especially in corner of eye. Pt feels vision seems improved but does see a blue image thru OD and more green thru OS. Post-Op The 79 year old patient presents for a 1 day post op CE OS with Toric IOL. Patient to begin drops as directed. Patient denies any pain or discomfort. cataract check The 79 year old patient presents for evaluation of cataract check in the right eye and left eye. Pt is type 2 DM. Patient states he got new glasses Rx last fall and it did not improve vision. Pt has a hard time reading small print even when wearing glasses. Pt feels reading road signs while driving has gotten more difficult since office visit in April. Pt is bothered by glare from oncoming headlights. Pt c/o dryness that comes and goes day to day. Cataract evaluation The 79 year old patient presents for evaluation of Cataract evaluation in the right eye and left eye. Patient got new glasses from Rx in January but it did not help improve vision. Pt has a hard time reading small print, especially in low lighting even with new glasses on. Pt struggles to see road signs as well when driving. Pt has difficulty recognizing peoples faces from across the street. Pt is bothered by glare at night from oncoming headlights. Pt states the eyes always feels dry and sometimes itchy. Pt is Type II DM. Complete Exam The 79 year old patient presents for a complete Type II diabetic exam ou. Monitoring cupping ou and cataracts ou. BS was 117 this am and last A1C was 7.4 and PCP treats DM. Patient states it is getting harder and harder to see at night. Patient has RA and is taking hydroxychlorquine and states Dr. Chowdhury in [facility]. Glaucoma The 70 year old male presents for a 6 month IOP check with a VF due to cupping ou. Patient denies any changes in vision ou. Diabetic eye exam The 69 year ol d male presents for a complete diabetic exam. Patient states BS was 120 yesterday. Patient is a Type II diabetic. Patient denies any changes in vision. Functional Status Date Functional Assessmen t No Information Instructions Date Instruction Additional Infor mation Impression/Plan Impression/Plan Impression/Plan Impression/Plan Impression/Plan Impression/Plan Impression/Plan Impression/Plan Follow up - Return i n 1 year with Jeff Childs M.D. for Complete Exam , Visual Field (24-2). Impression/Plan - Op tic disc cupping discussed in detail. IOP and visual loaiza normal. Father had glaucoma. Will continue to monitor. Return to clinic in 1 year for complete exam with 24-2 visual loaiza or sooner with any problems. 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 for , IOP check. Impression/Plan - Di abetes no background retinopathy, no signs of neovascularization noted. Discussed ocular and systemic benefits of blood sugar control. Discussed cataracts with pt and treatment options. pt also understands at this time vision does not qualify to have CE with insurance coverage. Optic disc cupping discussed, return to clinic in 2 months for home office claim specialist IOP check with pachs and 24-2 visual loaiza. DM letter sent to Dr Farfan. Assessments Type Assessment Date assessment Post op visit Patient Care Teams Name Effective Dates (start - stop) Status Members No Information
--- OUTSIDE RECORDS SUMMARY | 2024-10-15 06:15 | XMS_ITS | Continuity of Care Document ---
Author Organization [facility] [facility] Address [address] [place] [address] Phone Care Team Providers Care Dump Truck Operator Name Role Phone Dereje KAMARA, Jael [...] Diagnoses Date Provider Providers Copied on Encounter [facility], [address] [facility], [place], [place], [address], tel:[phone] SEC Francesco SHELLEY Professional Post-Op (chief complaint) Post op visit 5 Dereje ANH Elder. [facility] [employer], [address], [place], [place], [address], [place]. tel:[phone] Raza Chowdhury MD.Referri ng Provider: Jeff Cedillo, [address], [place], [address] . tel:[phone] [facility], [address] [address], [place], [place], [address], tel:[phone] SEC Francesco SHELLEY Professional 1 Day CE/IOL/Lens Ar/Toric PO (chief complaint) Post op visit 5 Dereje OD Jael. [address] [employer], [address], [place], [place], [address], [place]. tel:[phone] Raza Chowdhury MD.Referri ng Provider: Jeff Cedillo, [address], [place], [address] . tel:[phone] [facility], [address], [place], [place], [address], [place] tel:[phone] [facility] No Information Sep- 0- 5 Lacy Gallagher. [address] [employer], [address], [place], [place], [address], [place]. tel:[phone] Referring Provider: Inocencia Sandra, [address] [place] [address] [employer] [address], [place], [address] . tel:[phone] [facility], [address] [place] [address] [address], [place], [place], [address], tel:[phone] SEC [place] Professional Post-Op (chief complaint) Post op visitDry eyes, bilateral August- 4-202 5 Dereje OD Jael. [address] [place] [address] [employer], [address], [place], [place], [address], [place]. tel:[phone] Raza Chowdhury MD.Referri ng Provider: Jeff Cedillo, [address], [place], [address] . tel:[phone] [facility], [address] [place] [address] [address], [place], [place], [address], [place] tel:[phone] SEC [place] Professional Emergency work in (chief complaint) Post op visitDry eyes, bilateral August-0 6-202 5 Marques Pro. [address] [place] [address] [employer] [address]ri, [address], [place], [place], [address], [place]. tel:[phone] Raza Chowdhury MD.Referri ng Provider: Elliott Cedillo, [address] [place] [address], [place], [address] . tel:[phone] [facility], [address] [employer] [address], [place], [place], [address], tel:[phone] SEC Francesco SHELLEY Professional Post-Op (chief complaint) Post op visit 5 Dereje KAMARA Jael. [address] [place], [place] [address]cre[employer], [address], [place], [place], [address], . tel:[phone] Raza Chowdhury MD.Referri ng Provider: Jeff Cedillo, [address], [place], [address] . tel:[phone] [facility], [facility] [employer] [address], [place], [place], [address], tel:[phone] [facility] No Information 5 Lcay Gallagher. [facility] [employer], [address], [place], [place], [address], [place]. tel:[phone] Referring Provider: Elliott Cedillo, [facility] [employer] [address], [place], [address] . tel:[phone] [facility], [facility] [employer] [address], [place], [place], [address], [place] tel:[phone] SEC [place] No Information 5 Lacy Gallagher. [facility] [employer], [address], [place], [place], [address], [place]. tel:[phone] Office/outpa tient Visit, Est [facility], [facility] [employer] [address], [place], [place], [address], [place] tel:[phone] SEC Francesco SHELLEY Professional cataract check (chief complaint) Combined forms of age-related cataract of both eyesEpiretina l membrane (ERM), bilateralGlau comatous cupping of optic disc of both eyesIncreased corneal thickness of both eyesType 2 diab with mild nonp rtnop without macular edema, biCentral corneal opacity of right eye 5 Lacy Gallagher. [facility] [employer], [address], [place], [place], [address], [place]. tel:[phone] Raza Chowdhury MD.Referri ng Provider: Jeff Cedillo, [address], [place], [address] . tel:[phone] Office/outpa tient Visit, [facility] [employer] [address] [address], [place], [place], [address], [place] tel:[phone] SEC [place] Professional Cataract evaluation (chief complaint) Combined forms of age-related cataract, bilateralEpir etinal membrane (ERM), bilateralIncr eased corneal thickness of both eyesDeep retinal hemorrhage of right eyeType 2 diabetes mellitus without complications Regular astigmatism, bilateral 5 Lacy Gallagher. [facility] [employer], [address], [place], [place], [address], [place]. tel:[phone] Raza Chowdhury MD.Referri ng Provider: Elliott Cedillo, [facility] [employer] [address], [place], [address] . tel:[phone] [facility], [facility] [employer] [address], [place], [place], [address], [place] tel:[phone] SEC [place] Professional Complete Exam (chief complaint) Long-term use of PlaquenilGlau coma suspect of both eyesType 2 diabetes mellitus without complication, without long-term current use of insulinCombin ed forms of age-related cataract of both eyes Oct- 4 Marques Pro. [facility] [employer] [address], [address], [place], [place], [address], [place]. tel:[phone] Specialist : Raza Chowdhury MD, [address] [place] [address], [address] . tel:[phone] erring Provider: [place], [address] [address], [place], [address] . tel:[phone] [facility], [address], [place], [place], [address], [place] tel:[phone] SEC Francesco SHELLEY Professional No Information Nov-2 3-202 4 Marques OD Inocencia. [address] [place] [address] [address], [address], [place], [place], [address], [place]. 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 [address], [facility] [place], [address], [place]. tel:[phone] Referring Provider: Jeff Cedillo, [address] [facility] A, [place], [address] . tel:[phone] [facility], [address], [place], [place], [address], [place] tel:[phone] SEC Francesco SHELLEY Professional Diabetic eye exam (chief complaint) Senile nuclear cataractOptic disc pathological cuppingDiabet es Sep-0 9-201 5 Amadeo Aguilar. [address], [place], [place], [address], [place]. tel:[phone] Referring Provider: Jeff Cedillo, [address], [place], [address] . tel:[phone] [facility], [address], [place], [place], [address], [place] tel:[phone] SEC Francesco SHELLEY Professional No Information Sep-0 1-201 5 Amadeo Aguilar. [address], [address], [place], [place], [address], [place]. tel:[phone] [facility], [address], [place], [place], [address], [place] tel:[phone] SEC Francesco KARSTEN Professional No Information 2 Amadeo Aguilar. [address], [address], [place], [place], [address], [place]. tel:[phone] Referring Provider: Jeff Childs Nguyen, [address], [place], [address] . tel:[phone] Family History Family Member Type Diagnosis Age [...] taking hydroxychlorquine and states Dr. Chowdhury in [facility]. 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 IOP and visual loaiza normal. Father had glaucoma. Will continue to monitor. Return to clinic in 1 year for complete exam with 24-2 visual loaiza or sooner with any problems. Follow up - Return i n 1 year with Jeff Childs M.D. for Complete Exam , Visual Field (24-2). Impression/Plan - Di abetes no background retinopathy, no signs of neovascularization noted. Discussed ocular and systemic benefits of blood sugar control. Discussed cataracts with pt and treatment options. pt also understands at this time vision does not qualify to have CE with insurance coverage. 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 DM letter sent to Dr Farfan. Follow up - Return i n 2 months with Jeff Childs M.D. for , IOP check. Assessments Type Assessment Date assessment Post op visit Patient Care Teams Name Effective Dates (start - stop) Status Members No Information
[2024-12-14] VITALS (16 sets, daily range): BP systolic 119–133; BP diastolic 69–84; PULSE 77–88; RESP 18; TEMP 36.3; O2SAT 94–97
--- NOTE | ~2024-12-14 | XR_ITS ---
EXAMINATION: XR chest 2V 12/14/2024 11:14 INDICATION: Abnormal blood sugars PROCEDURE: 2 view chest COMPARISON: Comparison to multiple prior studies sequentially, with oldest reviewed study dated 05/23/2018. FINDINGS: The lungs are clear. The cardiomediastinal silhouette is within normal limits. There are no pleural effusions. There is no pneumothorax suspected. Stable radiopaque implant overlying the left chest. IMPRESSION: 1: NO ACUTE CARDIOPULMONARY DISEASE. Reviewed, dictated and finalized at location O.
--- OUTSIDE RECORDS SUMMARY | 2024-12-14 10:16 | XMS_ITS | Encounter Summary ---
Author Organization [facility] Address [address] [place] [address] Phone Care Team Providers Care Trackless Trolley Driver Name Role Phone Alex Farfan MD Primary Care Provider [phone] Encounter Details Date Type Department Care Team (Late st Contact Info) Description 05/18/[address] [facility] Medicine Physicians [facility] Surgery [address] [place] [address] [address] [place] [address] Magali Chadwick Social History Tobacco [...] Friends and Family Patient declined 08/01/2018 Attends Mandaeism Services Patient declined 07/22 Active Member of Clubs or Organizations Patient declined 08/01/2018 Attends Club or Organization Meetings Patient de clined 08/01/2018 Marital Status Patient declined 08/01/2018 Overall Financial Resource Strain (CARDIA) Answe r Date Recorded Difficulty of Paying Living Expenses Patient dec lined 08/01/2018 [facility] [place] of Occupat ional Health - Occupational Stress [...] on file 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
--- OUTSIDE RECORDS SUMMARY | 2024-12-14 10:16 | XMS_ITS | Encounter Summary ---
Author Organization [facility] Address [address] [place] [address] Care Team Providers Care Executive Director Global Brand Marketing Name Role Phone Alex Farfan MD Primary Care Provider [phone] Mark Guzmán MD Unavailable Eber Gonzalez MD Unavailable Unavailable Deonte Ly MD Unavailable [phone] Biajn Gabriel MD Unavailable [phone] Lindsey López APRN, HEADRIG SAWYER-C Unavailable [phone] Micaela Rucker MD Unavailable [phone] Encounter Details Date Type Department Care Team (Late st Contact Info) Description 08/13/2019 Abstract [facility] [address] [place] [id number] Abstract, Doc [facility] Social History Tobacco Use Types Packs/Day Years Used Date Smoking Tobacco: Never Alcohol Use Standard Drinks/Week Comments Yes 0 (1 standard drink = 0.6 oz pure alcohol) 1-2 drinks every couple of months Sex and Gender Information Value Date Recorded Sex Assigned at Not on file Legal Sex Male 3:37 PM BOTTLE FILLER Gender Identity Male 06/10/2021 11:48 AM BOTTLE FILLER Sexual Orientation Straight 06/10/2021 11 :48 AM BOTTLE FILLER COVID-19 Exposure Response Date Recorded In the [...] documented as of this encounter Care Teams Executive Director Global Brand Marketing Relationship Specialty Start Date End Date Alex Farfan MD [address] [place] [id number] PCP - General INTERNAL MEDICINE 06/17/19 Mark Guzmán MD [address] [place] [address] Consulting Physician CARDIOVASCULAR DISEASE 07/30/19 Eber Gonzalez MD [address] [place] [address] Consulting Physician CLINICAL CARDIAC ELECTROPHYSIOLOGY 10/08/19 11/12/24 Deonte Ly MD [address] [place], [place] [address] INTERNAL MEDICINE 10/22/19 Bijan Gabriel MD [address] [place] [address] Consulting Physician INTERNAL MEDICINE 06/03/20 Lindsey López, MARY, HEADRIG SAWYER-C [address] [address] NURSE PRACTITIONER 06/03/20 Micaela Rucker MD [address] [address] INTERVENTIONAL CARDIOLOGY 12/08/2310/22 documented as of this encounter
--- OUTSIDE RECORDS SUMMARY | 2024-12-14 10:16 | XMS_ITS | Clinical Summary ---
Author Organization [facility] Address [address] [place] [address] Care Team Providers Care Shipping And Receiving Supervisor Name Role Phone Alex Farfan MD Primary Care Provider [phone] Deonte Ly MD Unavailable [phone] Bijan Gabriel MD Unavailable Lindsey López PRODUCTION SUPPORT DEVELOPER, BANKER MASON-C Unavailable Allergies Active Allergy Reactions Criticality Noted [...] Syncope and collapse 08/21/2019 Current use of custodial anticoagulation 020 Type 2 diabetes mellitus ([facility]) Rheumatoid arthritis ([facility]) Hypertension Hyperlipidemia Paroxysmal atrial fibrillation ([facility]) Asthma ([facility]) Family History Medical History Relation Comments [...] on file Legal Sex Male 3:37 PM STEEL CHECKER Gender Identity Male 06/10/2021 11:48 AM STEEL CHECKER Sexual Orientation Straight 06/10/2021 11 :48 AM STEEL CHECKER Last Filed Vital Signs Vital Sign Reading [...] this topic Medical Devices Implanted Type Area Sales And Service Change Leader Device Identifier Shelf Expiration Date Model / Serial / Lot Implantable Loop Recorder-Medtro warren Reveal Linq-10/21/2019 Implanted:Qty: 1 on 10/21/2019 by Eber Gonzalez MD Implantable Loop Recorder [employer] CARDIAC RHYTHM AND HEART FAILURE - DIV M [id number] / [id number] S / Procedures Procedure Name Priority Date/Time Associated Diagnosis Comments HEMOGLOBIN, GLYCOSYLATED Routine 01/17/2021 from Last 3 Months or Most Recently Relevant to Health Maintenance Results * HEMOGLOBIN, GLYCOSYLATED (01/17/2021) HGB A1C 8.0 <5.7 % 01/17/2021 Alex Farfan MD LABORATORY Final Result from Last 3 Months or Most Recently Relevant to Health Maintenance Insurance [facility] Care Teams Shipping And Receiving Supervisor Relationship Specialty Start Date End Date Alex Farfan MD [address] [place] [address] PCP - General INTERNAL MEDICINE 06/17/19 Deonte Ly MD [address] [place] [address] INTERNAL MEDICINE 10/22/19 Bijan Gabriel MD [address] [place] [phone] Consulting Physician INTERNAL MEDICINE 06/03/20 Lindsey López, PRODUCTION SUPPORT DEVELOPER, BANKER MASON-C [address] [facility] [address] [place] [address] NURSE PRACTITIONER 06/03/20
--- OUTSIDE RECORDS SUMMARY | 2024-12-14 10:16 | XMS_ITS | Clinical Summary ---
Author Organization [facility] Address [address] [place] [address] Care Team Providers Care Interchange Agent Name Role Phone Alex Farfan MD Primary Care Provider [phone] Allergies Active Allergy Reactions Criticality Noted Date [...] (08/01/2018): Added automatically from request for surgery [id number] Severe persistent asthma 07/12/2018 Dupuytren contracture 03/08/2018 [...] (03/05/2018): Added automatically from request for surgery [id number] Immunizations Immunization Administration Dates Next Due Influenza, [...] Paying Living Expenses Patient dec lined 08/01/2018 [facility] of Occupat ional Health - Occupational Stress [...] on file Legal Sex Male 9:56 AM SHADE CLASSIFIER Gender Identity Male 12/07/2020 10:14 PM CDT [...] copy faxed has been acknowledged. Queued to: [id number] Blood 02/20/2023 9:54 AM CDT 02/20/2023 9:54 AM CDT Tonya Metcalf MD LAB BLOOD ORDERABLES Final Resu lt [facility] [address] [place] [address] from Last 3 Months or Most Recently Relevant to Health Maintenance Insurance MEDICARE [employer] P[employer] [facility] HMO/PPO Address: [address] [address] [place] [address] MEDICARE [facility] HMO/PPO Address: [address] [address] [place] [address] [employer] OPEN ACCESS [facility] MCR SUPPLEMENT MARY KAY HERNANDEZ [id number] Care Teams Interchange Agent Relationship Specialty Start Date End Date Alex Farfan MD PCP - General Internal Medicine 02/20/18
--- OUTSIDE RECORDS SUMMARY | 2024-12-14 10:16 | XMS_ITS | Clinical Summary ---
Author Organization [facility] Address [address] [place] [address] Phone Care Team Providers Care Coal Gasification Technician Name Role Phone Provider, None Primary Care [...] patient's age to complete this topic Insurance [facility] SHARED client success manager Care Teams Coal Gasification Technician Relationship Specialty Start Date End Date Provider, None [place] PCP - General 11/29/18
--- OUTSIDE RECORDS SUMMARY | 2024-12-14 10:16 | XMS_ITS | Encounter Summary ---
Author Organization [facility] [employer] [facility] Address [address] [place] [address] Phone Care Team Providers Care Short Filler Bunch Machine Operator Name Role Phone Alex Farfan MD Primary Care Provider [phone] Encounter Details Date Type Department Care Team (Late st Contact Info) Description 03/30/2023 Telephone [facility] Medicine Occupational Therapy [address] [facility] [address] [place] [address] [place] [address] Raza Felix, OT [address] [address] Social History Tobacco Use Types Packs/Day Years [...] Friends and Family Patient declined 08/01/2018 Attends Jain Services Patient declined 07/22 Active Member of Clubs or Organizations Patient declined 08/01/2018 Attends Club or Organization Meetings Patient de clined 08/01/2018 Marital Status Patient declined 08/01/2018 Overall Financial Resource Strain (CARDIA) Answe r Date Recorded Difficulty of Paying Living Expenses Patient dec lined 08/01/2018 [facility] [place] of Occupat ional Health - Occupational Stress [...] on file Legal Sex Male 9:56 AM FIRE EXTINGUISHER TESTER Gender Identity Male 12/07/2020 10:14 PM CDT Sexual Orientation Straight 12/07/2020 10 :14 PM CDT Occupation Industry Job Start Date Job End Date retired Not on file Not on file Not on file documented as of this encounter Plan of Treatment Not on file documented as of this encounter Visit Diagnoses Not on filedocumented in this encounter Care Teams Short Filler Bunch Machine Operator Relationship Specialty Start Date End Date Alex Farfan MD PCP - General Internal Medicine 02/20/18 documented as of this encounter
--- OUTSIDE RECORDS SUMMARY | 2024-12-14 10:16 | XMS_ITS | Encounter Summary ---
Author Organization [facility] [facility] Address [address] [place] [address] Phone Care Team Providers Care Ballistician Name Role Phone Alex Farfan MD Primary Care Provider [phone] Encounter Details Date Type Department Care Team (Late st Contact Info) Description 03/30/2023 Documentation [facility] Medicine Occupational Therapy [address] [facility] 6th [place] [address] [place] [address] Raza Felix, OT [address] [facility] [place] [address] [place] [id number] Social History Tobacco Use Types Packs/Day Years [...] Friends and Family Patient declined 08/01/2018 Attends Scientologist Services Patient declined 07/22 Active Member of Clubs or Organizations Patient declined 08/01/2018 Attends Club or Organization Meetings Patient de clined 08/01/2018 Marital Status Patient declined 08/01/2018 Overall Financial Resource Strain (CARDIA) Answe r Date Recorded Difficulty of Paying Living Expenses Patient dec lined 08/01/2018 [facility] [place] of Occupat ional Health - Occupational Stress [...] on file Legal Sex Male 9:56 AM LABORATORY DIRECTOR Gender Identity Male 12/07/2020 10:14 PM CDT Sexual Orientation Straight 12/07/2020 10 :14 PM CDT Occupation Industry Job Start Date Job End Date retired Not on file Not on file Not on file documented as of this encounter Plan of Treatment Not on file documented as of this encounter Visit Diagnoses Not on filedocumented in this encounter Care Teams Ballistician Relationship Specialty Start Date End Date Alex Farfan MD PCP - General Internal Medicine 02/20/18 documented as of this encounter
--- OUTSIDE RECORDS SUMMARY | 2024-12-14 10:16 | XMS_ITS | Encounter Summary ---
Author Organization [facility] Address [address] [place] [address] Care Team Providers Care Brooch Maker Novelty Name Role Phone Alex Farfan MD Primary Care Provider [phone] Mark Guzmán MD Unavailable [phone] Eber Gonzalez MD Unavailable Unavailable Deonte Ly MD Unavailable [phone] Bijan Gabriel MD Unavailable Lindsey López APRN INTERNAL CONTROL CONSULTANT-C Unavailable Micaela Rucker MD Unavailable [phone] Encounter Details Date Type Department Care Team (Late st Contact Info) Description 10/18/2022 MyChart Message Enc [facility] [address] [place] [address] Mychart, [facility] Provider Air Quality Message Social History Tobacco Use Types Packs/Day Years Used Date Smoking Tobacco: Never Smokeless Tobacco: Never Alcohol Use Standard Drinks/Week Comments Yes 0 (1 standard drink = 0.6 oz pure alcohol) 1-2 drinks every couple of months Sex and Gender Information Value Date Recorded Sex Assigned at Not on file Legal Sex Male 3:37 PM ANALYTICAL RESEARCH PROGRAM MANAGER Gender Identity Male 06/10/2021 11:48 AM ANALYTICAL RESEARCH PROGRAM MANAGER Sexual Orientation Straight 06/10/2021 11 :48 AM ANALYTICAL RESEARCH PROGRAM MANAGER documented as of this encounter Plan of Treatment Not on file documented as of this encounter Visit Diagnoses Not on filedocumented in this encounter Care Teams Brooch Maker Novelty Relationship Specialty Start Date End Date Alex Farfan MD [address] [place] [address] PCP - General INTERNAL MEDICINE 06/17/19 Mark Guzmán MD [address] [place] [address] Consulting Physician CARDIOVASCULAR DISEASE 07/30/19 Eber Gonzalez MD [address] [place] [address] Consulting Physician CLINICAL CARDIAC ELECTROPHYSIOLOGY 10/08/19 11/12/24 Deonte Ly MD [address] [place], [place] [address] INTERNAL MEDICINE 10/22/19 Bijan Gabriel MD [address] [place] [address] Consulting Physician INTERNAL MEDICINE 06/03/20 Lindsey López APRN, INTERNAL CONTROL CONSULTANT-C [address] [address] NURSE PRACTITIONER 06/03/20 Micaela Rucker MD [address] [address] INTERVENTIONAL CARDIOLOGY 12/08/2310/22 documented as of this encounter
--- NOTE | 2024-12-14 10:33 | ED.GENADULT ---
HPI - General Adult General Chief complaint: Unspecified Stated complaint: blood sugar issues Time Seen by Provider: 12/14/24 10:19 Source: patient Mode of arrival: ambulatory Limitations: no limitations History of Present Illness HPI narrative: patient is a 79-year-old male with diabetes 2 having 24 hours of variable blood sugars per his arm monitor. He has been getting values between 60s and 200s. Roughly at mid 100s value per the monitor. He has been taking small snacks when it gets below 100. he has been mostly asymptomatic. Tonight, he is planning for a HIDA scan tomorrow and NPO after 3:00 a.m.. He is concerned about NPO status and is variable blood sugars. No chest pain or shortness of breath. Onset (ago): day(s) (2) Location: abdomen ( epigastric discomfort and nausea over the past 3 weeks having outpatient testing done) and upper extremity ( Blood sugar monitor) Radiation: non-radiation Severity: mild Severity scale (1-10): 2 Quality: sharp Pain Consistency: intermittent Relieving factors: none Exacerbating factors: eating Associated symptoms: denies other symptoms Treatments prior to arrival: other ( small sugar snacks when it gets below 100 per the sugar monitor) Related Data Home Medications ?Medication ?Instructions ?Recorded ?Confirmed ?Last Taken ?Type albuterol sulfate 2.5 mg/3 mL 2.5 mg inhalation Q4H PRN 07/05/19 11/17/24 Unknown History (0.083 %) solution for nebulization Shortness Of Breath albuterol sulfate 90 mcg/actuation 2 puff inhalation QID PRN 07/05/19 11/17/24 Unknown History aerosol inhaler (ProAir HFA) Shortness Of Breath azelastine 205.5 mcg (0.15 %) 2 spray intranasal BID 07/05/19 11/17/24 Unknown History nasal spray dapagliflozin propanediol 5 mg 10 mg PO DAILY 07/05/19 11/17/24 Unknown History tablet (Farxiga) magnesium 200 mg tablet 400 mg PO DAILY 07/05/19 11/17/24 Unknown History agogotly-pg-vxyup 300 mcg-K 60 1 tablet PO DAILY 07/05/19 11/17/24 Unknown History mcg-lycop 600 mcg-lutein 300 mcg tablet (Centrum Silver Men) simvastatin 10 mg tablet 5 mg PO HS 07/05/19 11/17/24 Unknown History terazosin 10 mg capsule 10 mg PO HS 07/05/19 11/17/24 Unknown History Lactobacillus 1 cap PO DAILY 05/05/20 11/17/24 Unknown History acidophilus-Bifidobac.animalis 2.5 billion cell capsule (Daily Probiotic) apixaban 5 mg tablet (Eliquis) 5 mg PO BID 05/05/20 11/17/24 Unknown History benralizumab 30 mg/mL subcutaneous 30 mg subcut ONCE 05/05/20 11/17/24 Unknown History syringe (Fasenra) chlorthalidone 25 mg tablet 12.5 mg PO DAILY 05/05/20 11/17/24 Unknown History fexofenadine 180 mg tablet 180 mg PO DAILY 05/05/20 11/17/24 Unknown History fluticasone propionate 50 1 spray intranasal BID 05/05/20 11/17/24 Unknown History mcg/actuation nasal spray,suspension hydroxychloroquine 200 mg tablet 200 mg PO BID 05/05/20 11/17/24 Unknown History potassium chloride 20 mEq 20 meq PO DAILY 05/05/20 11/17/24 Unknown History tablet,extended release(part/cryst) (Klor-Con M) arformoterol 15 mcg/2 mL solution 15 mcg inhalation BID 07/11/20 11/17/24 Unknown History for nebulization (Imtiaz) budesonide 0.5 mg/2 mL suspension 0.5 mg inhalation BID 07/11/20 11/17/24 Unknown History for nebulization aspirin 81 mg tablet,delayed 81 mg PO DAILY 11/22/23 11/17/24 Unknown History release folic acid 1 mg tablet 1 mg PO DAILY 11/22/23 11/17/24 Unknown History methotrexate sodium 2.5 mg tablet 15 mg PO WEEKLY 11/22/23 11/17/24 Unknown History Allergies Allergy/AdvReac Type Severity Reaction Status Date / Time losartan AdvReac Dizziness Verified 12/14/24 10:29 metformin (From Aprumet) AdvReac Abdominal Verified 12/14/24 10:29 Pain sitagliptin (From Aprumet) AdvReac Abdominal Verified 12/14/24 10:29 Pain theophylline AdvReac Abdominal Verified 12/14/24 10:29 Pain Review of Systems Review of Systems: All systems reviewed & are unremarkable except as noted in HPI and below Constitutional: Constitutional: Reports no additional constitutional complaints Eyes: Eyes: Reports no additional eye complaints ENT: Reports system reviewed and no additional complaints, except as documented Cardiovascular: Cardiovascular: Reports no additional cardiovascular complaints Respiratory: Respiratory: Reports no additional respiratory complaints Gastrointestinal: Gastrointestinal: Reports no additional gastrointestinal complaints Genitourinary: Genitourinary: Reports no additional male genitourinary complaints Musculoskeletal: Musculoskeletal: Reports no additional musculoskeletal complaints Integumentary/Breasts: Skin/Breast: Reports system reviewed and no additional complaints, except as docu Neurologic: Reports system reviewed and no additional complaints, except as documented Psychiatric: Psychiatric: Reports no additional psychiatric complaints Endocrine: Endocrine: Reports no additional endocrine complaints Allergic/Immunologic: Allergic/Immunologic: Reports no additional allergic/immunologic complaints [facility] Past Medical History Medical History Strain of left calf muscle Paroxysmal atrial fibrillation HTN (hypertension) HLD (hyperlipidemia) Asthma Type 2 diabetes mellitus Rheumatoid arthritis Social History Social History Smoking status: Never smoker Alcohol intake: never Substance use: never Living arrangements: with family Gender identity (if verbalized by the patient): Male Spiritual care concerns: No Agree to blood products: Yes Exam Const: General: cooperative, healthy appearing and comfortable HENMT: Head: normal to inspection, No palpable skull fracture present and normocephalic Eyes: General: appearance normal, both eyes and all related structures Visual Loaiza: normal visual loaiza by confrontation Alignment and Position: alignment normal Neck: Neck: normal visual inspection, full ROM and no lymphadenopathy Chest: Chest palpation & inspection: normal inspection of the chest Resp: Effort & Inspection: normal respiratory effort, able to speak in complete sentences and normal respiratory pattern Auscultation: clear to auscultation bilaterally Cardio: Jugular venous distension: no JVD Palpation: normal PMI Rate: regular rate Rhythm: regular rhythm Heart sounds: S1 normal heart sound present and S2 normal heart sound present GI: Inspection: normal to inspection GI Palp: Yes abdominal tenderness ( epigastrium) Auscultation: normal bowel sounds Back/Spine/Pelvis: Back: no CVA tenderness Skin: General skin exam: normal color, no rashes or lesions noted and elasticity normal Neuro: General: oriented to person, oriented to place, oriented to time, patient oriented x3, gait normal, tone normal and moves all extremities Extrem: General: normal to inspection, full ROM and capillary refill normal Psych: Appearance: grossly normal and well kempt Mental Status: mental status grossly normal Course Vital Signs Vital signs: Vital Signs Respiratory Rate 18 12/14/24 10:15 Pulse Oximetry 97 12/14/24 10:15 Temperature 36.3 C L 12/14/24 12:01 Pulse Rate 77 12/14/24 12:01 Respiratory Rate 18 12/14/24 12:01 Blood Pressure 129/75 12/14/24 12:01 Pulse Oximetry 96 12/14/24 12:01 Oxygen Delivery Room Air 12/14/24 10:24 Medical Decision Making MDM Narrative Medical decision making narrative: patient is a 79-year-old male with variable blood sugars over the past 24 hours and has a HIDA scan in the morning with NPO after 3:00 a.m. tonight. He is having a workup due to recurrent epigastric pain and nausea. We will do a workup for reassurance at this time. HIDA scan has to be NPO and he will be ready for that in the morning. Patient had a negative workup and nonspecific slightly elevated lactate which is mild dehydration. He will be in courage to drink more water. He will have a HIDA scan in the morning. He is to continue monitoring his blood sugar but not repair the sugar until it gets below 70. Vital Signs Vital Signs: Vital Signs Respiratory Rate 18 12/14/24 10:15 Pulse Oximetry 97 12/14/24 10:15 Temperature 36.3 C L 12/14/24 12:01 Pulse Rate 77 12/14/24 12:01 Respiratory Rate 18 12/14/24 12:01 Blood Pressure 129/75 12/14/24 12:01 Pulse Oximetry 96 12/14/24 12:01 Oxygen Delivery Room Air 12/14/24 10:24 Lab Data Lab results reviewed: Yes I reviewed the patient's lab results. 12/14/24 11:03 12/14/24 11:03 Labs: Lab Results 12/14/24 12/14/24 12/14/24 Range/Units 10:21 10:23 11:03 WBC 9.1 (4.8-10.8) K/mm3 RBC 5.40 (4.70-6.10) M/mm3 Hgb 16.8 H (12.4-15.3) g/dL Hct 50.4 H (37.0-46.0) % MCV 93.3 (78.0-102.0) fL MCH 31.1 H (27.0-31.0) pg MCHC 33.3 (32-36) g/dL RDW 13.0 (11.6-14.4) % Plt Count 171 (150-420) K/mm3 MPV 9.0 (8.7-11.0) fl Immature Gran % (Auto) 0.6 H (0.0-0.0) % Neut % (Auto) 79.0 H (50.0-70.0) % Lymph % (Auto) 7.5 L (18.0-42.0) % [place] % (Auto) 11.1 H (2.0-11.0) % Eos % (Auto) 1.1 (1.0-6.0) % Baso % (Auto) 0.7 (0.0-1.0) % Lymph # (Auto) 0.68 L (1.10-4.50) K/mm3 [place] # (Auto) 1.01 H (0.10-0.90) K/mm3 Eos # (Auto) 0.10 (0.02-0.50) K/mm3 Baso # (Auto) 0.06 (0.00-0.10) K/mm3 Abs Immat Gran (auto) 0.05 H (0.00-0.00) K/mm3 Absolute Neuts (auto) 7.17 (1.70-7.20) K/mm3 Absolute Nucleated RBC 0.00 (0.00-0.00) K/mm3 Nucleated RBC % 0.0 (0-0.0) % Sodium 137 (137-145) mmol/L Potassium 4.0 (3.4-5.0) mmol/L Chloride 97 L (98-107) mmol/L Carbon Dioxide 31 H (22-30) mmol/L Anion Gap 9 (4-12) mmol/L BUN 18 (9-20) mg/dL Creatinine 0.86 (0.7-1.3) mg/dL Estim Creat Clear Calc 55 ml/min Estimated GFR > 60 (59 - ) Glucose 149 H (65-110) mg/dL POC Capillary Glucose 166 H (65-105) mg/dl Calculated Osmolality 288 (285-295) mOsm/kg Lactic Acid 2.3 H (0.4-2.0) mmol/L Calcium 9.4 (8.4-10.2) mg/dL Total Bilirubin 0.6 (0.2-1.3) mg/dL AST 45 (17-59) U/L ALT 72 H (6-50) U/L Alkaline Phosphatase 68 (38-126) U/L Troponin I < 0.012 (0.000-0.034) ng/mL Total Protein 6.9 (6.3-8.2) g/dL Albumin 4.5 (3.5-5.1) g/dL Lipase 117 (23-300) U/L Urine Color Light yellow (Yellow) Urine Appearance Clear (Clear) Urine pH 6.0 (5.0-8.0) Ur Specific [place] 1.015 (1.010-1.020) Urine Protein Negative (Negative) Urine Glucose (UA) 3+ H (Negative) Urine Ketones Negative (Negative) Ur Blood (Man) Negative (Negative) Urine Nitrate Negative (Negative) Urine Bilirubin Negative (Negative) Urine Urobilinogen 0.2 (0.2-1.0) mg/dL Leukocyte Esterase Rfl Negative (Negative) LAUREEN/UL Imaging Data Attestation: I personally reviewed and interpreted this imaging study as follows: Radiologist's impression: Chest x-rays negative for acute process ECG Data EKG #1: ECG completion date: 12/14/24 ECG completion time: 11:00 EKG Interpretation: normal rate, sinus rhythm, no ectopy, non-specific ST changes, normal QRS, normal QT and left axis Discharge Plan Discharge Clinical Impression: Hypoglycemia, Disease of gallbladder Type 2 diabetes mellitus Qualifiers: Diabetes mellitus assisted insulin use: without terminal gauger supervisor use Diabetes mellitus complication status: with other specified complication Qualified Code(s): E11.69 - Type 2 diabetes mellitus with other specified complication Patient Disposition: Home Condition: Stable Instructions: Hypoglycemia in a Person with Diabetes (DC) Additional Instructions: please follow-up with primary doctor in the next week. Please go to your HIDA scan is planned tomorrow. We will not have you use sugar to repair your blood sugar low values until it gets to about 70 or less (a small amount a honey is acceptable during your fasting. ). It would be reasonable to hold 1 of your diabetic medications tonight as you will be fasting tomorrow. You may restart Diabetic medicine after the test has been completed. Patient Language: Malian Prescriptions: No Action albuterol sulfate 2.5 mg /3 mL (0.083 %) Solution For Nebulization 2.5 mg INHALATION Q4H PRN (Reason: Shortness Of Breath) simvastatin 10 mg Tablet 5 mg PO HS albuterol sulfate [ProAir HFA] 90 mcg/actuation Hfa Aerosol Inhaler 2 puff INHALATION QID PRN (Reason: Shortness Of Breath) terazosin 10 mg Capsule 10 mg PO HS magnesium 200 mg Tablet 400 mg PO DAILY azelastine 0.15 % (205.5 mcg) [place],Non-Aerosol 2 spray INTRANASAL BID Centrum Silver Men 300-600-300 mcg Tablet 1 tablet PO DAILY dapagliflozin propanediol [Farxiga] 5 mg Tablet 10 mg PO DAILY budesonide 0.5 mg/2 mL suspension for nebulization 0.5 mg inhalation BID arformoterol [Brovana] 15 mcg/2 mL solution for nebulization 15 mcg INHALATION BID fluticasone propionate 50 mcg/actuation spray,suspension 1 spray INTRANASAL BID chlorthalidone 25 mg tablet 12.5 mg PO DAILY fexofenadine 180 mg Tablet 180 mg PO DAILY potassium chloride [Klor-Con M20] 20 mEq tablet,ER particles/crystals 20 meq PO DAILY hydroxychloroquine 200 mg tablet 200 mg PO BID Eliquis 5 mg Tablet 5 mg PO BID Daily Probiotic 2.5 billion cell Capsule 1 cap PO DAILY Fasenra 30 mg/mL Syringe 30 mg SUBCUT ONCE Rx Instructions: EVERY 2 MONTHS aspirin 81 mg tablet,delayed release (DR/EC) 81 mg PO DAILY methotrexate sodium 2.5 mg tablet 15 mg PO WEEKLY folic acid 1 mg tablet 1 mg PO DAILY Follow-up/Referrals: Alex Farfan MD [Primary Care Provider, Internal Medicine] Time of Disposition: 12:20
--- NOTE | 2024-12-14 10:47 | ECG_ITS ---
Test Date: 2024-12-14 10:56:46 Measurements Intervals [place] Rate: 78 P: 46 MT: 169 QRS: 81 QRSD: 84 T: 26 QT: 375 QTc: 430 Interpretive Statements SINUS RHYTHM LOW QRS VOLTAGE IN PRECORDIAL LEADS BORDERLINE ST-T WAVE ABNORMALITY- INFERIOR LEADS BASELINE ARTIFACT- I, II, III, AVR, AVL, AVF BORDERLINE ECG No previous ECG available for comparison Electronically Signed On 12-14-2024 15:16:13 CDT by Benji Leal D.O.
--- OUTSIDE RECORDS SUMMARY | 2024-12-14 10:54 | XMS_ITS | Encounter Summary ---
Author Organization [facility] Address [address] [place] [address] Care Team Providers Care Television Script Writer Name Role Phone Alex Farfan MD Primary Care Provider [phone] Mark Guzmán MD Unavailable Eber Gonzalez MD Unavailable Unavailable Deonte Ly MD Unavailable [phone] Bijan Gabriel MD Unavailable [phone] Lindsey López APRN, STONE SPLITTER-C Unavailable [phone] Micaela Rucker MD Unavailable [phone] Encounter Details Date Type Department Care Team (Late st Contact Info) Description 08/13/2019 Abstract [facility] [address] [place] [id number] Abstract, Doc [facility] Social History Tobacco Use Types Packs/Day Years Used Date Smoking Tobacco: Never Alcohol Use Standard Drinks/Week Comments Yes 0 (1 standard drink = 0.6 oz pure alcohol) 1-2 drinks every couple of months Sex and Gender Information Value Date Recorded Sex Assigned at Not on file Legal Sex Male 3:37 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 Gender Identity Male 06/10/2021 11:48 AM DIRECTOR STAGE Sexual Orientation Straight 06/10/2021 11 :48 AM DIRECTOR STAGE COVID-19 Exposure Response Date Recorded In the [...] documented as of this encounter Care Teams Television Script Writer Relationship Specialty Start Date End Date Alex Farfan MD [address] [place] [id number] PCP - General INTERNAL MEDICINE 06/17/19 Mark Guzmán MD [address] [place] [address] Consulting Physician CARDIOVASCULAR DISEASE 07/30/19 Eber Gonzalez MD [address] [place] [address] Consulting Physician CLINICAL CARDIAC ELECTROPHYSIOLOGY 10/08/19 11/12/24 Deonte Ly MD [address] [place], [place] [id number] INTERNAL MEDICINE 10/22/19 Bijan Gabriel MD [address] [place] [address] Consulting Physician INTERNAL MEDICINE 06/03/20 Lindsey López, MARY, STONE SPLITTER-C [address] [phone] NURSE PRACTITIONER 06/03/20 Micaela Rucker MD [address] [address] INTERVENTIONAL CARDIOLOGY 12/08/2310/22 documented as of this encounter
--- OUTSIDE RECORDS SUMMARY | 2024-12-14 10:54 | XMS_ITS | Clinical Summary ---
Author Organization [facility] Address [address] [place] [address] Care Team Providers Care Sales Office Administrator Name Role Phone Alex Farfan MD Primary Care Provider [phone] Allergies Active Allergy Reactions Criticality Noted Date [...] (08/01/2018): Added automatically from request for surgery [id number] Severe persistent asthma 07/12/2018 Dupuytren contracture 03/08/2018 [...] (03/05/2018): Added automatically from request for surgery [id number] Immunizations Immunization Administration Dates Next Due Influenza, [...] Paying Living Expenses Patient dec lined 08/01/2018 [facility] [place] of Occupat ional Health - Occupational Stress [...] on file 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 Queued to: [id number] Blood 02/20/2023 9:54 AM CDT 02/20/2023 9:54 AM CDT Tonya Metcalf MD LAB BLOOD ORDERABLES Final Resu lt [facility] [address] [place] [address] from Last 3 Months or Most Recently Relevant to Health Maintenance Insurance MEDICARE [employer] PPO MEDICARE [facility] OPEN ACCESS [facility] MCR SUPPLEMENT MARY KAY HERNANDEZ [id number] Care Teams Sales Office Administrator Relationship Specialty Start Date End Date Alex Farfan MD PCP - General Internal Medicine 02/20/18
--- OUTSIDE RECORDS SUMMARY | 2024-12-14 10:54 | XMS_ITS | Encounter Summary ---
Author Organization [facility] Address [address] [place] [address] Phone Care Team Providers Care Surgical Garment Assembly Supervisor Name Role Phone Alex Farfan MD Primary Care Provider [phone] Encounter Details Date Type Department Care Team (Late st Contact Info) Description 03/30/2023 Documentation [facility] Medicine Occupational Therapy [address] [facility] [address] [place] [address] [place] [address] Raza Felix, OT [address] [facility] [address] [place] [id number] Social History Tobacco Use Types Packs/Day Years [...] Friends and Family Patient declined 08/01/2018 Attends Mandaen Services Patient declined 07/22 Active Member of Clubs or Organizations Patient declined 08/01/2018 Attends Club or Organization Meetings Patient de clined 08/01/2018 Marital Status Patient declined 08/01/2018 Overall Financial Resource Strain (CARDIA) Answe r Date Recorded Difficulty of Paying Living Expenses Patient dec lined 08/01/2018 [facility] [place] of Occupat ional Health - Occupational Stress [...] on file 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
--- OUTSIDE RECORDS SUMMARY | 2024-12-14 10:54 | XMS_ITS | Encounter Summary ---
Author Organization [facility] Address [address] [place] [address] Care Team Providers Care Ex Chef Name Role Phone Alex Farfan MD Primary Care Provider [phone] Mark Guzmán MD Unavailable Eber Gonzalez MD Unavailable Unavailable Deonte Ly MD Unavailable [phone] Bijan Gabriel MD Unavailable Lindsey López APRN FOREIGN SERVICE OFFICER-C Unavailable Micaela Rucker MD Unavailable [phone] Encounter Details Date Type Department Care Team (Late st Contact Info) Description 01/19/2021 [facility] [address] [place] [phone] Mark Guzmán MD [address] [place] [phone] Social History Tobacco Use Types Packs/Day Years Used Date Smoking Tobacco: Never Smokeless Tobacco: Never Alcohol Use Standard Drinks/Week Comments Yes 0 (1 standard drink = 0.6 oz pure alcohol) 1-2 drinks every couple of months Sex and Gender Information Value Date Recorded Sex Assigned at Not on file Legal Sex Male 3:37 PM NURSE LEADER Gender Identity Male 06/10/2021 11:48 AM NURSE LEADER Sexual Orientation Straight 06/10/2021 11 :48 AM NURSE LEADER COVID-19 Exposure Response Date Recorded In the [...] PM CDT Taurus London RN Active * [place] Suicide Severity Rating Scale (Screener/Recent Self-Report) Question [...] S/P/B 0.5 0.2 - 1.2 01/17/2021 Result [facility] us Alex Farfan MD LABORATORY Final Result * ALBUMIN/GLOBULIN RATIO (01/17/2021) [facility] ALBUMIN/GLOBULI N RATIO 1.8 1.0 - 2.5 01/17/2021 Result [facility] us Alex Farfan MD LABORATORY Final Result * GLOBULIN (01/17/2021) [facility] GLOBULIN 2.3 1.9 - 3.7 01/17/2021 Result [facility] us Alex Farfan MD LABORATORY Final Result * ALBUMIN, SERUM (01/17/2021) [facility] ALBUMIN S/P/B 4.2 3.6 - 5.1 01/17/2021 Result [facility] us Alex Farfan MD LABORATORY Final Result * PROTEIN TOTAL (01/17/2021) [facility] TOTAL PROTEIN S/P/B 6.5 6.1 - 8.1 01/17/2021 Result [facility] us Alex Farfan MD LABORATORY Final Result * ALKALINE PHOSPHATASE (01/17/2021) [facility] ALKALINE PHOSPHATASE S/P/B 57 35 - 144 01/17/2021 Result [facility] us Alex Farfan MD LABORATORY Final Result * ALT (OUTSIDE LAB) (01/17/2021) [facility] ALT 20 9 - 46 01/17/2021 Result [facility] us Alex Farfan MD LAB-OUTSIDE/ABSTRACTED Final Re sult * AST (ABSTRACTED LAB) (01/17/2021) AST 14 10 - 35 01/17/2021 lAex Farfan MD LAB-OUTSIDE/ABSTRACTED Final Re sult * HEMOGLOBIN, GLYCOSYLATED (01/17/2021) HGB A1C 8.0 <5.7 % 01/17/2021 Alex Farfan MD LABORATORY Final Result documented in this encounter Visit Diagnoses Not on filedocumented in this encounter Care Teams Ex Chef Relationship Specialty Start Date End Date Alex Farfan MD [address] [place] [phone] PCP - General INTERNAL MEDICINE 06/17/19 Mark Guzmán MD [address] [place] [phone] Consulting Physician CARDIOVASCULAR DISEASE 07/30/19 Eber Gonzalez MD [address] [place] [address] Consulting Physician CLINICAL CARDIAC ELECTROPHYSIOLOGY 10/08/19 11/12/24 Deonte Ly MD [address] [place] [address] INTERNAL MEDICINE 10/22/19 Bijan Gabriel MD [address] [place] [address] Consulting Physician INTERNAL MEDICINE 06/03/20 Lindsey López APRN, FOREIGN SERVICE OFFICER-C [address] [facility] [address] [place] [address] NURSE PRACTITIONER 06/03/20 Micaela Rucker MD [address] [address] INTERVENTIONAL CARDIOLOGY 12/08/2310/22 documented as of this encounter
--- OUTSIDE RECORDS SUMMARY | 2024-12-14 10:54 | XMS_ITS | Clinical Summary ---
Author Organization [facility] Address [address] [place] [address] Phone Care Team Providers Care Ammonia Box Tender Name Role Phone Provider, None Primary [...] patient's age to complete this topic Insurance [facility] home child care provider Care Teams Ammonia Box Tender Relationship Specialty Start Date End Date Provider, None [place] PCP - General 11/29/18
--- OUTSIDE RECORDS SUMMARY | 2024-12-14 10:54 | XMS_ITS | Clinical Summary ---
Author Organization [facility] Address [address] [place] [address] Care Team Providers Care Hvac Design Engineer Name Role Phone Alex Farfan MD Primary Care Provider Deonte Ly MD Unavailable [phone] Bijan Gabriel MD Unavailable Lindsey López DRAWING BOX TENDER, EMBALMER APPRENTICE-C Unavailable [phone] Allergies Active Allergy Reactions Criticality Noted Date [...] Syncope and collapse 08/21/2019 Current use of longterm anticoagulation 020 Type 2 diabetes mellitus ([facility] Rheumatoid arthritis ([facility]) Hypertension Hyperlipidemia Paroxysmal atrial fibrillation ([facility] Asthma ([facility]) Family History Medical History Relation Comments Black [...] on file Legal Sex Male 3:37 PM MOTOR EXPRESS CLERK Gender Identity Male 06/10/2021 11:48 AM MOTOR EXPRESS CLERK Sexual Orientation Straight 06/10/2021 11 :48 AM MOTOR EXPRESS CLERK Last Filed Vital Signs Vital Sign Reading [...] this topic Medical Devices Implanted Type Area Litigation Secretary Device Identifier Shelf Expiration Date Model / Serial / Lot Implantable Loop Recorder-Medtro warren Reveal Linq-10/21/2019 Implanted:Qty: 1 on 10/21/2019 by Eber Gonzalez MD Implantable Loop Recorder [employer] CARDIAC RHYTHM AND HEART FAILURE - DIV M [id number] / [id number] / Procedures Procedure Name Priority Date/Time Associated Diagnosis Comments HEMOGLOBIN, GLYCOSYLATED Routine 01/17/2021 from Last 3 Months or Most Recently Relevant to Health Maintenance Results * HEMOGLOBIN, GLYCOSYLATED (01/17/2021) HGB A1C 8.0 <5.7 % 01/17/2021 Alex Farfan MD LABORATORY Final Result from Last 3 Months or Most Recently Relevant to Health Maintenance Insurance [employer] Care Teams Hvac Design Engineer Relationship Specialty Start Date End Date Alex Farfan MD [address] [place] [address] PCP - General INTERNAL MEDICINE 06/17/19 Deonte Ly MD [address] [place] [address] INTERNAL MEDICINE 10/22/19 Bijan Gabriel MD [address] [place] [address] Consulting Physician INTERNAL MEDICINE 06/03/20 Lindsey López, DRAWING BOX TENDER, EMBALMER APPRENTICE-C [address] [facility] [address] [place] [address] NURSE PRACTITIONER 06/03/20
--- OUTSIDE RECORDS SUMMARY | 2024-12-14 10:54 | XMS_ITS | Encounter Summary ---
Author Organization [facility] [employer] [facility] Address [address] [place] [address] Phone Care Team Providers Care Manager Domestic Name Role Phone Alex Farfan MD Primary Care Provider [phone] Encounter Details Date Type Department Care Team (Late st Contact Info) Description 03/30/2023 Telephone [facility] Medicine Occupational Therapy [address] [facility] 6th [place] [address] [place] [address] Raza Felix, OT [address] [address] Social History Tobacco Use Types Packs/Day Years [...] Friends and Family Patient declined 08/01/2018 Attends Anabaptist Services Patient declined 07/22 Active Member of Clubs or Organizations Patient declined 08/01/2018 Attends Club or Organization Meetings Patient de clined 08/01/2018 Marital Status Patient declined 08/01/2018 Overall Financial Resource Strain (CARDIA) Answe r Date Recorded Difficulty of Paying Living Expenses Patient dec lined 08/01/2018 [facility] [place] of Occupat ional Health - Occupational Stress [...] on file Legal Sex Male 9:56 AM CHEMISTRY QUALITY CONTROL ANALYST Gender Identity Male 12/07/2020 10:14 PM CDT Sexual Orientation Straight 12/07/2020 10 :14 PM CDT Occupation Industry Job Start Date Job End Date retired Not on file Not on file Not on file documented as of this encounter Plan of Treatment Not on file documented as of this encounter Visit Diagnoses Not on filedocumented in this encounter Care Teams Manager Domestic Relationship Specialty Start Date End Date Alex Farfan MD PCP - General Internal Medicine 02/20/18 documented as of this encounter
--- OUTSIDE RECORDS SUMMARY | 2024-12-14 10:54 | XMS_ITS | Encounter Summary ---
Author Organization [facility] [employer] [facility] Address [address] [place] [address] Phone Care Team Providers Care Tax Audit Manager Name Role Phone Alex Farfan MD Primary Care Provider [phone] Encounter Details Date Type Department Care Team (Late st Contact Info) Description 05/18/2021 Telephone [facility] Medicine Physicians [facility] Surgery [address] [place] [address] [address] [place] [address] Magali Chadwick Social History Tobacco [...] Friends and Family Patient declined 08/01/2018 Attends Faith Services Patient declined 07/22 Active Member of Clubs or Organizations Patient declined 08/01/2018 Attends Club or Organization Meetings Patient de clined 08/01/2018 Marital Status Patient declined 08/01/2018 Overall Financial Resource Strain (CARDIA) Answe r Date Recorded Difficulty of Paying Living Expenses Patient dec lined 08/01/2018 [facility] [place] of Occupat ional Health - Occupational Stress [...] on file Legal Sex Male 9:56 AM COORDINATOR OF GENETIC SERVICES Gender Identity Male 12/07/2020 10:14 PM CDT Sexual Orientation Straight 12/07/2020 10 :14 PM CDT Occupation Industry Job Start Date Job End Date retired Not on file Not on file Not on file documented as of this encounter Plan of Treatment Not on file documented as of this encounter Visit Diagnoses Not on filedocumented in this encounter Care Teams Tax Audit Manager Relationship Specialty Start Date End Date Alex Farfan MD PCP - General Internal Medicine 02/20/18 documented as of this encounter
--- OUTSIDE RECORDS SUMMARY | 2024-12-14 10:54 | XMS_ITS | Encounter Summary ---
Author Organization [facility] Address [address] [place] [address] Care Team Providers Care Social Work Supervisor Name Role Phone Alex Farfan MD Primary Care Provider [phone] Mark Guzmán MD Unavailable [phone] Eber Gonzalez MD Unavailable Unavailable Deonte Ly MD Unavailable [phone] Bijan Gabriel MD Unavailable Lindsey López APRN SCRAP BURNER-C Unavailable Micaela Rucker MD Unavailable [phone] Encounter Details Date Type Department Care Team (Late st Contact Info) Description 10/18/2022 MyChart Message Enc [facility] [address] [place] [address] Mychart, [facility] Provider Air Quality Message Social History Tobacco Use Types Packs/Day Years Used Date Smoking Tobacco: Never Smokeless Tobacco: Never Alcohol Use Standard Drinks/Week Comments Yes 0 (1 standard drink = 0.6 oz pure alcohol) 1-2 drinks every couple of months Sex and Gender Information Value Date Recorded Sex Assigned at Not on file Legal Sex Male 3:37 PM LATHE SET UP PERSON Gender Identity Male 06/10/2021 11:48 AM LATHE SET UP PERSON Sexual Orientation Straight 06/10/2021 11 :48 AM LATHE SET UP PERSON documented as of this encounter Plan of Treatment Not on file documented as of this encounter Visit Diagnoses Not on filedocumented in this encounter Care Teams Social Work Supervisor Relationship Specialty Start Date End Date Alex Farfan MD [address] [place] [address] PCP - General INTERNAL MEDICINE 06/17/19 Mark Guzmán MD [address] [place] [address] Consulting Physician CARDIOVASCULAR DISEASE 07/30/19 Eber Gonzalez MD [address] [place] [address] Consulting Physician CLINICAL CARDIAC ELECTROPHYSIOLOGY 10/08/19 11/12/24 Deonte Ly MD [address] [place], [place] [address] INTERNAL MEDICINE 10/22/19 Bijan Gabriel MD [address] [place] [address] Consulting Physician INTERNAL MEDICINE 06/03/20 Lindsey López APRN, SCRAP BURNER-C [address] [address] NURSE PRACTITIONER 06/03/20 Micaela Rucker MD [address] [address] INTERVENTIONAL CARDIOLOGY 12/08/2310/22 documented as of this encounter
[2024-12-14 10:55] LABS: Add Urine Microscopic? NO; Appearance Urine Clear (Clear); Glucose Urine UA 3+ (Negative); Leukocyte Esterase Ur Negative LEU/UL (Negative); Nitrate Urine Negative (Negative); Specific Grav Ur 1.015 (1.010-1.020)
[2024-12-14 11:19] LABS: Hematocrit 50.4 % (37.0-46.0); Hemoglobin 16.8 g/dL (12.4-15.3); Immature Granulocyte Percent A 0.6 % (0.0-0.0); Lymphocytes Absolute Auto 0.68 K/mm3 (1.10-4.50); Mean Corpuscular HGB Conc 33.3 g/dL (32-36); Mean Corpuscular Hemoglobin 31.1 pg (27.0-31.0); Mean Corpuscular Volume 93.3 fL (78.0-102.0); Nucleated Red Blood Cells Absolute Auto 0.00 K/mm3 (0.00-0.00); Nucleated Red Blood Cells Perc 0.0 % (0-0.0); Platelet Count Result 171 K/mm3 (150-420); Red Blood Count 5.40 M/mm3 (4.70-6.10); White Blood Count 9.1 K/mm3 (4.8-10.8)
[2024-12-14 11:29] LABS: Alanine Aminotransferase 72 U/L (6-50); Albumin Level 4.5 g/dL (3.5-5.1); Alkaline Phosphatase 68 U/L (38-126); Anion Gap 9 mmol/L (4-12); Aspartate Amino Transferase 45 U/L (17-59); Bilirubin,Total 0.6 mg/dL (0.2-1.3); Blood Urea Nitrogen 18 mg/dL (9-20); Calcium 9.4 mg/dL (8.4-10.2); Carbon Dioxide 31 mmol/L (22-30); Chloride 97 mmol/L (98-107); Estimated CRCL calculation 55 ml/min; Estimated Glomerular Filt Rate > 60; Glucose 149 mg/dL (65-110); Lipase 117 U/L (23-300); Osmolality Calculated 288 mOsm/kg (285-295); Potassium 4.0 mmol/L (3.4-5.0); Sodium 137 mmol/L (137-145); Total Protein 6.9 g/dL (6.3-8.2)
[2024-12-14 11:42] LABS: Troponin I < 0.012 ng/mL (0.000-0.034)
== END 2024-12-14 12:30 | disposition home or self-care (01) ==
PROVIDERS: Emergency Provider Emergency Medicine; PCP Internal Medicine
DX: E11.649 Type 2 diabetes mellitus with hypoglycemia without coma (principal); K82.9 Disease of gallbladder, unspecified; I48.0 Paroxysmal atrial fibrillation; I10 Essential (primary) hypertension; E11.9 Type 2 diabetes mellitus without complications; M06.9 Rheumatoid arthritis, unspecified
CPT/HCPCS: 36415; 71046; 80053; 81003; 82948; 83605; 83690; 84484; 85025; 93005; 99284

== ENCOUNTER 2024-12-15 08:40 | Outpatient (CLI) | payer OTHER, SELFPAY ==
--- NOTE | ~2024-12-15 | NM_ITS ---
EXAMINATION: NM_HEPATWP_NM DATE: 12/15/2024 12:53 INDICATION: Epigastric pain COMPARISON: None. TECHNIQUE: 6.0 mCi Tc-99m mebrofenin (Choletec) was administered intravenously. Scintigraphic images of the abdomen were obtained for one hour. 1.4 mcg sincalide (Kinevac) was administered by slow intravenous infusion, and imaging was continued for 30 minutes. Gallbladder ejection fraction was calculated by the technologist. FINDINGS: There is normal clearance of radiotracer from the blood pool. There is homogeneous tracer uptake by the liver. Activity progresses to the gallbladder and bowel. The gallbladder ejection fraction (GBEF) is 86% (normal 10-90%, but most patient with gallbladder dysfunction have GBEF < 35% which does overlap with the normal range). IMPRESSION: 1. Normal hepatobiliary scan Reviewed, dictated and finalized at location A.
--- OUTSIDE RECORDS SUMMARY | 2024-12-15 08:59 | XMS_ITS | Encounter Summary ---
Author Organization [facility] Address [address] [place] [address] Care Team Providers Care Spun Paste Machine Operator Name Role Phone Alex Farfan MD Primary Care Provider [phone] Mark Guzmán MD Unavailable Eber Gonzalez MD Unavailable Unavailable Deonte Ly MD Unavailable [phone] Bijan Gabriel MD Unavailable [phone] Lindsey López APRN, PROGRAMMER ANALYST CONSULTANT-C Unavailable Micaela Rucker MD Unavailable [phone] Encounter Details Date Type Department Care Team (Late st Contact Info) Description 08/13/2019 Abstract [facility] [address] [place] [id number] Abstract, Doc [facility] Social History Tobacco Use Types Packs/Day Years Used Date Smoking Tobacco: Never Alcohol Use Standard Drinks/Week Comments Yes 0 (1 standard drink = 0.6 oz pure alcohol) 1-2 drinks every couple of months Sex and Gender Information Value Date Recorded Sex Assigned at Not on file Legal Sex Male 3:37 PM EMERGENCY MEDICAL SERVICES COORDINATOR Gender Identity Male 06/10/2021 11:48 AM EMERGENCY MEDICAL SERVICES COORDINATOR Sexual Orientation Straight 06/10/2021 11 :48 AM EMERGENCY MEDICAL SERVICES COORDINATOR COVID-19 Exposure Response Date Recorded In the [...] documented as of this encounter Care Teams Spun Paste Machine Operator Relationship Specialty Start Date End Date Alex Farfan MD [address] [place] [address] PCP - General INTERNAL MEDICINE 06/17/19 Mark Guzmán MD [address] [place] [address] Consulting Physician CARDIOVASCULAR DISEASE 07/30/19 Eber Gonzalez MD [address] [place] [address] Consulting Physician CLINICAL CARDIAC ELECTROPHYSIOLOGY 10/08/19 11/12/24 Deonte Ly MD [address] [place], [place] [address] INTERNAL MEDICINE 10/22/19 Bijan Gabriel MD [address] [place] [address] Consulting Physician INTERNAL MEDICINE 06/03/20 Lindsey López, MARY, PROGRAMMER ANALYST CONSULTANT-C [address] [address] NURSE PRACTITIONER 06/03/20 Micaela uRcker MD [address] [address] INTERVENTIONAL CARDIOLOGY 12/08/2310/22 documented as of this encounter
--- OUTSIDE RECORDS SUMMARY | 2024-12-15 08:59 | XMS_ITS | Encounter Summary ---
Author Organization [facility] [employer] [facility] Address [address] [place] [address] Phone Care Team Providers Care Stage Setting Painter Apprentice Name Role Phone Alex Farfan MD Primary Care Provider [phone] Encounter Details Date Type Department Care Team (Late st Contact Info) Description 03/30/2023 Documentation [facility] Medicine Occupational Therapy [address] [facility] 6th [place] [address] [place] [address] Raza Felix, OT [address] [facility] [address] [place] [address] Social History Tobacco Use Types Packs/Day Years [...] Friends and Family Patient declined 08/01/2018 Attends Gnosticism Services Patient declined 07/22 Active Member of Clubs or Organizations Patient declined 08/01/2018 Attends Club or Organization Meetings Patient de clined 08/01/2018 Marital Status Patient declined 08/01/2018 Overall Financial Resource Strain (CARDIA) Answe r Date Recorded Difficulty of Paying Living Expenses Patient dec lined 08/01/2018 [facility] [place] of Occupat ional Health - Occupational Stress [...] on file Legal Sex Male 9:56 AM RECYCLING OPERATOR Gender Identity Male 12/07/2020 10:14 PM CDT Sexual Orientation Straight 12/07/2020 10 :14 PM CDT Occupation Industry Job Start Date Job End Date retired Not on file Not on file Not on file documented as of this encounter Plan of Treatment Not on file documented as of this encounter Visit Diagnoses Not on filedocumented in this encounter Care Teams Stage Setting Painter Apprentice Relationship Specialty Start Date End Date Alex Farfan MD PCP - General Internal Medicine 02/20/18 documented as of this encounter
--- OUTSIDE RECORDS SUMMARY | 2024-12-15 08:59 | XMS_ITS | Encounter Summary ---
Author Organization [facility] Address [address] [place] [address] Care Team Providers Care Precision Instrument And Tool Maker Name Role Phone Alex Farfan MD Primary Care Provider [phone] Mark Guzmán MD Unavailable [phone] Eber Gonzalez MD Unavailable Unavailable Deonte Ly MD Unavailable [phone] Bijan Gabriel MD Unavailable Lindsey López APRN CORPORATE STRATEGY ANALYST-C Unavailable [phone] Micaela Rucker MD Unavailable [phone] Encounter Details Date Type Department Care Team (Late st Contact Info) Description 10/18/2022 MyChart Message Enc [facility] [address] [place] [address] Mychart, [facility] Provider Air Quality Message Social History Tobacco Use Types Packs/Day Years Used Date Smoking Tobacco: Never Smokeless Tobacco: Never Alcohol Use Standard Drinks/Week Comments Yes 0 (1 standard drink = 0.6 oz pure alcohol) 1-2 drinks every couple of months Sex and Gender Information Value Date Recorded Sex Assigned at Not on file Legal Sex Male 3:37 PM PIANO TEACHER Gender Identity Male 06/10/2021 11:48 AM PIANO TEACHER Sexual Orientation Straight 06/10/2021 11 :48 AM PIANO TEACHER documented as of this encounter Plan of Treatment Not on file documented as of this encounter Visit Diagnoses Not on filedocumented in this encounter Care Teams Precision Instrument And Tool Maker Relationship Specialty Start Date End Date Alex Farfan MD [address] [place] [address] PCP - General INTERNAL MEDICINE 06/17/19 Mark Guzmán MD [address] [place] [address] Consulting Physician CARDIOVASCULAR DISEASE 07/30/19 Eber Gonzalez MD [address] [place] [address] Consulting Physician CLINICAL CARDIAC ELECTROPHYSIOLOGY 10/08/19 11/12/24 Deonte Ly MD [address] [place], [place] [address] INTERNAL MEDICINE 10/22/19 Bijan Gabriel MD [address] [place] [address] Consulting Physician INTERNAL MEDICINE 06/03/20 Lindsey López APRN, CORPORATE STRATEGY ANALYST-C [address] [address] NURSE PRACTITIONER 06/03/20 Micaela Rucker MD [address] [address] INTERVENTIONAL CARDIOLOGY 12/08/2310/22 documented as of this encounter
--- OUTSIDE RECORDS SUMMARY | 2024-12-15 08:59 | XMS_ITS | Clinical Summary ---
Author Organization [facility] Address [address] [place] [address] Phone Care Team Providers Care Office Lead Name Role Phone Provider, None Primary Care [...] to complete this topic Insurance [facility]ARED greenbelt Care Teams Office Lead Relationship Specialty Start Date End Date Provider, None [place] PCP - General 11/29/18
--- OUTSIDE RECORDS SUMMARY | 2024-12-15 08:59 | XMS_ITS | Encounter Summary ---
Author Organization [facility] [email or web address] [facility] Address [address] [place] [address] Phone Care Team Providers Care Can Reforming Machine Operator Name Role Phone Alex Farfan MD Primary Care Provider [phone] Encounter Details Date Type Department Care Team (Late st Contact Info) Description 05/18/2021 Telephone [facility] Medicine Physicians [facility] Surgery [address] [place] [address] [address] [place] [address] Magali Chadwick Social History Tobacco [...] Friends and Family Patient declined 08/01/2018 Attends [facility] Patient declined 07/22 Active Member of Clubs or Organizations Patient declined 08/01/2018 Attends Club or Organization Meetings Patient de clined 08/01/2018 Marital Status Patient declined 08/01/2018 Overall Financial Resource Strain (CARDIA) Answe r Date Recorded Difficulty of Paying Living Expenses Patient dec lined 08/01/2018 [facility] [place] of Occupat ional Health - Occupational Stress [...] on file Legal Sex Male 9:56 AM INSIDE OUTSIDE SALES REPRESENTATIVE Gender Identity Male 12/07/2020 10:14 PM CDT Sexual Orientation Straight 12/07/2020 10 :14 PM CDT Occupation Industry Job Start Date Job End Date retired Not on file Not on file Not on file documented as of this encounter Plan of Treatment Not on file documented as of this encounter Visit Diagnoses Not on filedocumented in this encounter Care Teams Can Reforming Machine Operator Relationship Specialty Start Date End Date Alex Farfan MD PCP - General Internal Medicine 02/20/18 documented as of this encounter
--- OUTSIDE RECORDS SUMMARY | 2024-12-15 08:59 | XMS_ITS | Clinical Summary ---
Author Organization [facility] Address [address] [place] [address] Care Team Providers Care Bariatric Nurse Name Role Phone Alex Farfan MD Primary Care Provider [phone] Allergies Active Allergy Reactions Criticality Noted Date [...] (08/01/2018): Added automatically from request for surgery [id number] Severe persistent asthma 07/12/2018 Dupuytren contracture 03/08/2018 [...] (03/05/2018): Added automatically from request for surgery [id number] Immunizations Immunization Administration Dates Next Due Influenza, [...] Friends and Family Patient declined 08/01/2018 Attends Christian Services Patient declined 07/22 Active Member of Clubs or Organizations Patient declined 08/01/2018 Attends Club or Organization Meetings Patient de clined 08/01/2018 Marital Status Patient declined 08/01/2018 Overall Financial Resource Strain (CARDIA) Answe r Date Recorded Difficulty of Paying Living Expenses Patient dec lined 08/01/2018 [facility] [place] of Occupat ional Health - Occupational Stress [...] on file Legal Sex Male 9:56 AM MERCHANDISE MANAGER Gender Identity Male 12/07/2020 10:14 PM CDT [...] copy faxed has been acknowledged. Queued to: [id number] Blood 02/20/2023 9:54 AM CDT 02/20/2023 9:54 AM CDT Tonya Metcalf MD LAB BLOOD ORDERABLES Final Resu lt Medical Referral Source [facility] [address] [place] [address] from Last 3 Months or Most Recently Relevant to Health Maintenance Insurance MEDICARE [facility] Address: [facility] [id number] [place] [phone] [employer] PPO MEDICARE [facility] Address: [address] [address] [place] [address] [facility] HEALTHLINK OPEN ACCESS [facility] MCR SUPPLEMENT MARY KAY HERNANDEZ [id number] Care Teams Bariatric Nurse Relationship Specialty Start Date End Date Alex Farfan MD PCP - General Internal Medicine 02/20/18
--- OUTSIDE RECORDS SUMMARY | 2024-12-15 08:59 | XMS_ITS | Clinical Summary ---
Author Organization [facility] Address [address] [place] [address] Care Team Providers Care Leacher Name Role Phone Alex Farfan MD Primary Care Provider Deonte Ly MD Unavailable [phone] Bijan Gabriel MD Unavailable Lindsey López VALVE INSERTER, ROTARY SLICING MACHINE OPERATOR-C Unavailable Allergies Active Allergy Reactions Criticality Noted [...] Syncope and collapse 08/21/2019 Current use of jail anticoagulation 020 Type 2 diabetes mellitus ([facility]) Rheumatoid arthritis ([facility]) Hypertension Hyperlipidemia Paroxysmal atrial fibrillation ([facility]) Asthma ([facility]) Family History Medical History Relation Comments Black [...] on file Legal Sex Male 3:37 PM PIPE PROCESSOR Gender Identity Male 06/10/2021 11:48 AM PIPE PROCESSOR Sexual Orientation Straight 06/10/2021 11 :48 AM PIPE PROCESSOR Last Filed Vital Signs Vital Sign Reading [...] this topic Medical Devices Implanted Type Area Traffic Reporter Device Identifier Shelf Expiration Date Model / Serial / Lot Implantable Loop Recorder-Medtro warren Reveal Linq-10/21/2019 Implanted:Qty: 1 on 10/21/2019 by Eber Gonzalez MD Implantable Loop Recorder [employer] CARDIAC RHYTHM AND HEART FAILURE - DIV M [id number] / [id number] S / Procedures Procedure Name Priority Date/Time Associated Diagnosis Comments HEMOGLOBIN, GLYCOSYLATED Routine 01/17/2021 from Last 3 Months or Most Recently Relevant to Health Maintenance Results * HEMOGLOBIN, GLYCOSYLATED (01/17/2021) HGB A1C 8.0 <5.7 % 01/17/2021 Alex Farfan MD LABORATORY Final Result from Last 3 Months or Most Recently Relevant to Health Maintenance Insurance [employer] Care Teams Leacher Relationship Specialty Start Date End Date Alex Farfan MD [address] [place] [address] PCP - General INTERNAL MEDICINE 06/17/19 Deonte Ly MD [address] [place] [address] INTERNAL MEDICINE 10/22/19 Bijan Gabriel MD [address] [place] [address] Consulting Physician INTERNAL MEDICINE 06/03/20 Lindsey López, VALVE INSERTER, ROTARY SLICING MACHINE OPERATOR-C [address] [facility] [address] [place] [address] NURSE PRACTITIONER 06/03/20
--- OUTSIDE RECORDS SUMMARY | 2024-12-15 08:59 | XMS_ITS | Encounter Summary ---
Author Organization [facility] [employer] [facility] Address [address] [place] [address] Phone Care Team Providers Care Ballet Soloist Name Role Phone Alex Farfan MD Primary Care Provider [phone] Encounter Details Date Type Department Care Team (Late st Contact Info) Description 03/30/2023 Telephone [facility] Medicine Occupational Therapy [address] [facility] 6th [place] [address] [place] [address] Raza Felix, OT [address] [address] Social History Tobacco Use Types Packs/Day Years [...] Friends and Family Patient declined 08/01/2018 Attends [employer] Services Patient declined 07/22 Active Member of Clubs or Organizations Patient declined 08/01/2018 Attends Club or Organization Meetings Patient de clined 08/01/2018 Marital Status Patient declined 08/01/2018 Overall Financial Resource Strain (CARDIA) Answe r Date Recorded Difficulty of Paying Living Expenses Patient dec lined 08/01/2018 [facility] [place] of Occupat ional Health - Occupational Stress [...] on file Legal Sex Male 9:56 AM PATIENT APPOINTMENT COORDINATOR Gender Identity Male 12/07/2020 10:14 PM CDT Sexual Orientation Straight 12/07/2020 10 :14 PM CDT Occupation Industry Job Start Date Job End Date retired Not on file Not on file Not on file documented as of this encounter Plan of Treatment Not on file documented as of this encounter Visit Diagnoses Not on filedocumented in this encounter Care Teams Ballet Soloist Relationship Specialty Start Date End Date Alex Farfan MD PCP - General Internal Medicine 02/20/18 documented as of this encounter
--- OUTSIDE RECORDS SUMMARY | 2024-12-15 08:59 | XMS_ITS | Encounter Summary ---
Author Organization [facility] Address [address] [place] [address] Care Team Providers Care Emergency Room Rn Name Role Phone Alex Farfan MD Primary Care Provider [phone] Mark Guzmán MD Unavailable Eber Gonzalez MD Unavailable Unavailable Deonte Ly MD Unavailable [phone] Bijan Gabriel MD Unavailable Lindsey López APRN RIGGING WORKER-C Unavailable Micaela Rucker MD Unavailable [phone] Encounter Details Date Type Department Care Team (Late st Contact Info) Description 01/19/2021 Abstract [facility] [address] [place] [phone] Mark Guzmán MD [address] [place] [phone] Social History Tobacco Use Types Packs/Day Years Used Date Smoking Tobacco: Never Smokeless Tobacco: Never Alcohol Use Standard Drinks/Week Comments Yes 0 (1 standard drink = 0.6 oz pure alcohol) 1-2 drinks every couple of months Sex and Gender Information Value Date Recorded Sex Assigned at Not on file Legal Sex Male 3:37 PM 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 ECOLOGY 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 Gender Identity Male 06/10/2021 11:48 AM INDUSTRIAL ECOLOGY TECHNICIAN Sexual Orientation Straight 06/10/2021 11 :48 AM INDUSTRIAL ECOLOGY TECHNICIAN COVID-19 Exposure Response Date Recorded In [...] PM CDT Taurus London RN Active * [place] Suicide Severity Rating Scale (Screener/Recent Self-Report) Question [...] S/P/B 0.5 0.2 - 1.2 01/17/2021 Result [facility] us Alex Farfan MD LABORATORY Final Result * ALBUMIN/GLOBULIN RATIO (01/17/2021) [facility] ALBUMIN/GLOBULI N RATIO 1.8 1.0 - 2.5 01/17/2021 Result [facility] us Alex Farfan MD LABORATORY Final Result * GLOBULIN (01/17/2021) [facility] GLOBULIN 2.3 1.9 - 3.7 01/17/2021 Result [facility] us Alex Farfan MD LABORATORY Final Result * ALBUMIN, SERUM (01/17/2021) [facility] ALBUMIN S/P/B 4.2 3.6 - 5.1 01/17/2021 Result [facility] us Alex Farfan MD LABORATORY Final Result * PROTEIN TOTAL (01/17/2021) [facility] TOTAL PROTEIN S/P/B 6.5 6.1 - 8.1 01/17/2021 Result [facility] us Alex Farfan MD LABORATORY Final Result * ALKALINE PHOSPHATASE (01/17/2021) [facility] ALKALINE PHOSPHATASE S/P/B 57 35 - 144 01/17/2021 Result [facility] us Alex Farfan MD LABORATORY Final Result * ALT (OUTSIDE LAB) (01/17/2021) [facility] ALT 20 9 - 46 01/17/2021 Result [facility] us Alex Farfan MD LAB-OUTSIDE/ABSTRACTED Final Re sult * AST (ABSTRACTED LAB) (01/17/2021) AST 14 10 - 35 01/17/2021 Alex Farfan MD LAB-OUTSIDE/ABSTRACTED Final Re sult * HEMOGLOBIN, GLYCOSYLATED (01/17/2021) HGB A1C 8.0 <5.7 % 01/17/2021 Alex Farfan MD LABORATORY Final Result documented in this encounter Visit Diagnoses Not on filedocumented in this encounter Care Teams Emergency Room Rn Relationship Specialty Start Date End Date Alex Farfan MD [address] [place] [phone] PCP - General INTERNAL MEDICINE 06/17/19 Mark Guzmán MD [address] [place] [phone] Consulting Physician CARDIOVASCULAR DISEASE 07/30/19 Eber Gonzalez MD [address] [place] [address] Consulting Physician CLINICAL CARDIAC ELECTROPHYSIOLOGY 10/08/19 11/12/24 Deonte Ly MD [address] [place] [address] INTERNAL MEDICINE 10/22/19 Bijan Gabriel MD [address] [place] [address] Consulting Physician INTERNAL MEDICINE 06/03/20 Lindsey López APRN, RIGGING WORKER-C [address] [facility] [address] [place] [address] NURSE PRACTITIONER 06/03/20 Micaela Rucker MD [address] [address] INTERVENTIONAL CARDIOLOGY 12/08/2310/22 documented as of this encounter
== END 2024-12-15 08:41 | disposition home or self-care (01) ==
LOC: CHSIMG 08:42
PROVIDERS: PCP Internal Medicine; Visit Provider Internal Medicine
DX: R10.13 Epigastric pain (principal)
CPT/HCPCS: 78227; A9537; J2805

== ENCOUNTER 2025-02-18 13:12 | Outpatient (RCR) | payer OTHER, SELFPAY ==
--- NOTE | 2025-03-04 13:54 | OPREHPOC ---
Outpatient Therapy Plan of Care This is a Multidisciplinary Plan of Care that may contain components documented by all disciplines (PT, OT, and ST.) PT Problem 1 PT Problem #1 Knowledge Deficit PT Goal 1 Goal / Goal Update The patient will be independent in a home exercise program. Target Visit 2 Progress Met PT Goal 2 Goal / Goal Update continue to progress Target Visit 28 Progress Met PT Problem 2 PT Problem #2 Pain PT Goal 1 Goal / Goal Update The patient will report no greater than 2/10 left ankle pain with return to full weight bearing without the boot and ambulation. Target Visit 24 Progress Met PT Goal 2 Goal / Goal Update The patient will report no greater than 1/10 left ankle pain with return to PLOF. -continue Target Visit 28 Progress Met PT Problem 3 PT Problem #3 Impaired Functional Mobility PT Goal 1 Goal / Goal Update The patient will demonstrate 30% or less self perceived disability per the LEFS questionnaire. -not met The patient will ambulate 600 feet or more during the 6 MWT with the least restrictive AD to improve community ambulation. -met The patient will ascend/descend stairs reciprocally. -met Target Visit 16 Progress Partially Met PT Goal 2 Goal / Goal Update continue 1 Target Visit 28 Progress Partially Met PT Problem 4 PT Problem #4 Impaired Range of Motion PT Goal 1 Goal / Goal Update The patient will improve left ankle dorsiflexion to at least 0 and plantarflexion to at least 40 degrees to improve gait mechanics. -met for dorsiflexion Target Visit 8 Progress Partially Met PT Goal 2 Goal / Goal Update New Goal: Patient will demonstrate 30 degrees left ankle plantarflexion. Target Visit 28 Progress Partially Met PT Problem 5 PT Problem #5 Impaired Strength PT Goal 1 Goal / Goal Update The patient will demonstrate 4/5 left ankle strength to improve gait and balance. -not met for plantarflexion, met for remainder Target Visit 16 Progress Not Met PT Goal 2 Goal / Goal Update continue Target Visit 28 Progress Partially Met
--- NOTE | 2025-03-04 13:54 | PTOPDC ---
Assessment and note entered by Tashia Ocampo, PT Evaluation Information Assessment Status Discharge Diagnosis L displaced medial malleolus fracture ICD-10 Condition Codes (PT) Pain in left ankle and joints of left foot M25.572 Other ICD-10 Condition Codes ( S82.52XA PT) Onset 10/14/24 Subjective Information Binh Herrera reports his left ankle is better but he still has stiffness. He is back to most previous activities but has not gotten on ladders yet. He did climb onto his bigger tractor last week without difficulty and is taking stairs reciprocally again. He does still get occasional pain at night when his ankles touch each other while laying on his side. Reported Pain Level Pain Score 0: Self Report Assessment PT Clinical Summary Binh Herrera has completed 28 skilled PT visits for s/p left displaced medial malleolus fracture. He is reporting improvements overall noting he can walk without an AD and has returned to getting onto his larger tractor and going up and down stairs reciprocally. He objectively demonstrates improved left ankle ROM and strength, improved gait, and improved balance. He is a low fall risk. He is independent in a home exercise program for ankle ROM and strengthening. He has met 75% of his goals and will be discharged. Plan of Care PT Services Indicated No
== END 2025-03-04 20:00 | disposition home or self-care (01) ==
LOC: CHSPT 13:12
PROVIDERS: Visit Provider Orthopaedic Surgery
DX: S82.52XA Displaced fracture of medial malleolus of left tibia, initial encounter for closed fracture (principal); M25.572 Pain in left ankle and joints of left foot
CPT/HCPCS: 97110; 97112; 97530; 97750